=== PATIENT | female | born 1945 | race Caucasian/White ===

== ENCOUNTER 2017-11-07 07:40 | Emergency (ER) | payer OTHER, MEDICAID ==
[~2017-11-07] VITALS: Ht 167.6 cm; Wt 59.0 kg
[~2017-11-07 07:40] MED LIST: DIVA250T PO; LAM25 PO; MESA1.2T PO; ONDA8TAB13 PO; PANT40EC PO; RANI150C PO; SUCR1TAB35 PO; VENL150C1 PO; ZONI100C5 PO; [UNRECOGNIZED DRUG - CODE] PO; [UNRECOGNIZED DRUG - CODE] PO; [UNRECOGNIZED DRUG - CODE] PO
--- NOTE | 2017-11-07 07:41 | NUR ---
Patient BIBA to bed 2.
[2017-11-07 07:49] VITALS: BP 165/73
--- NOTE | 2017-11-07 08:00 | NUR ---
PATIENT BIBA C/O EPIGASTRIC PAIN, NAUEA AND WEAKNESS x 24 HOURS.MEDS: KEPPRA, EFFEXOR, HX: DEPRESSION AND SEIZURE . AAOX4 WITH EVEN AND STEADY GAIT; LUNGS CLEAR BL; HR EVEN AND REGULAR; PT DENIES ANY FEVER, CP, SOB, OR COUGH AT THIS TIME; SKIN IS PINK/WARM/DRY;PATIENT STATES PAIN OF 8/10 AT THIS TIME; VSS; PATIENT POSITIONED FOR COMFORT; HOB ELEVATED; BEDRAILS UP X2; BED DOWN. ER MD MADE AWARE OF PT STATUS.
[2017-11-07] MEDS ORDERED: ONDANSETRON 4 MG/2 ML VIAL IVP ONE ×2 (08:10→09:20)
[2017-11-07] MEDS ORDERED: MORPHINE SULFATE 4 MG/ML SYR IVP ONE (08:10)
[2017-11-07] MEDS ORDERED: NACL 0.9% 1,000 ML IV ONE (08:10)
[2017-11-07 08:28] LABS: BASOPHILS # (AUTO) 0.2 K/uL (0.00-0.22); BASOPHILS % (AUTO) 2.8 % (0.0-2.0); EOSINOPHILS # (AUTO) 0.1 K/uL (0-0.4); LYMPHOCYTES # (AUTO) 1.1 K/uL (2.5-16.5); LYMPHOCYTES % (AUTO) 13.9 % (20.5-51.1); MEAN CORPUSCULAR HEMOGLOBIN 28 pg (27-31); MEAN CORPUSCULAR HGB CONC 33 g/dL (33-37); MONOCYTES # (AUTO) 0.5 K/uL (0.8-1.0); MONOCYTES % (AUTO) 6.4 % (1.7-9.3); NEUTROPHILS % (AUTO) 75.9 % (42.2-75.2); PLATELET COUNT (AUTO) 365 K/uL (140-450); RED BLOOD CELL COUNT(AUTO) 5.01 MIL/uL (4.20-5.40); RED CELL DISTRIBUTION WIDTH 13.4 % (11.6-13.7); WHITE BLOOD COUNT (AUTO) 7.9 K/uL (4.8-10.8)
[2017-11-07 08:48] LABS: ALBUMIN 3.7 g/dL (3.4-5.0); CARBON DIOXIDE 24.5 mmol/L (21-32); CREATININE 0.9 mg/dL (0.6-1.3); POTASSIUM 3.5 mmol/L (3.5-5.1); TOTAL BILIRUBIN 0.5 mg/dL (0.0-1.0)
[2017-11-07] MEDS ORDERED: ALUMINUM HYD/MAG/SIMETHICONE 30 ML UDC PO ONE (09:20)
[2017-11-07] MEDS ORDERED: DICYCLOMINE HCL LIQUID 10 MG/5 ML UDC PO ONE (09:20)
[2017-11-07] MEDS ORDERED: LIDOCAINE VISCOUS 2% 20 ML UDC PO ONE (09:20)
--- NOTE | 2017-11-07 10:00 | NUR ---
PT IS RESTING IN BED, NO S/S OF DISTRESS, VSS. STILL C/O NAUSEA, AND ABDOMINAL PAIN. MADE AWARE..
[2017-11-07] MEDS ORDERED: MAGNESIUM CITRATE 300 ML BTL PO ONE (10:10)
[2017-11-07 10:38] LABS: APPEARANCE,URINE CLEAR (CLEAR); BILIRUBIN,URINE NEGATIVE (NEGATIVE); BLOOD, URINE TRACE-L (NEGATIVE); COLOR,URINE YELLOW (YELLOW); LEUKOCYTE ESTERASE ,URINE NEGATIVE (NEGATIVE); NITRITE, URINE NEGATIVE (NEGATIVE); PH,URINE 5.5 (5.0-9.0); UGLUCOSE NEGATIVE (NEGATIVE)
[2017-11-07 11:11] LABS: RBC,URINE 0-5 (RARE) /HPF (0-5); WBC,URINE 0-5 (RARE) /HPF (0-5)
[2017-11-07 11:34] VITALS: BP 153/84
--- NOTE | 2017-11-07 11:34 | NUR ---
Patient discharged with v/s stable. Written and verbal after care instructions given and explained. Patient alert, oriented and verbalized understanding of instructions. Ambulatory with steady gait. All questions addressed prior to discharge. ID band removed. Patient advised to follow up with PMD. Rx of ALPRAZOLAM, MIRALAX, ZANTAC given. Patient educated on indication of medication including possible reaction and side effects. Opportunity to ask questions provided and answered.
== END 2017-11-07 11:34 | disposition home or self-care (01) ==
LOC: MED 07:40
DX: K29.70 Gastritis, unspecified, without bleeding (principal); K59.00 Constipation, unspecified; F41.9 Anxiety disorder, unspecified; R94.31 Abnormal electrocardiogram [ECG] [EKG]; Z79.899 Other long term (current) drug therapy; Z90.710 Acquired absence of both cervix and uterus; Z88.0 Allergy status to penicillin
CPT/HCPCS: 36415; 74176; 80053; 81001; 81025; 82150; 83605; 83690; 84484; 84703; 85025; 85610; 87040; 93005; 96361; 96374; 96375; 96376; 99285; J2270; J2405; J7030

== ENCOUNTER 2017-12-19 07:49 | Inpatient (IN) | payer OTHER, MEDICAID ==
[~2017-12-19] VITALS: Ht 172.7 cm; Wt 70.3 kg
[2017-12-19 07:49] VITALS: BP 124/75
--- NOTE | 2017-12-19 07:53 | NUR ---
PT BIBA ALS FOR MECH FALL TO BED 4
[2017-12-19] MEDS ORDERED: NACL 0.9% 1,000 ML IV ONE ×2 (08:15→09:25)
--- NOTE | 2017-12-19 08:15 | NUR ---
PT. BIB FROM HOME VIA EMS DUE TO FALL AT HOME DUE TO WEAKNESS. PER EMS, "PT. WAS LYING ON THE GROUND FOR AN UNKNOWN AMOUNT OF TIME". SISTER WAS PRESENT AND TOLD PARAMEDICS " I THINK SHE HAS TAKEN TOO MANY XANAX". PT. IS AROUSABLE TO MOVEMENT AND VOICE, PT. IS LETHARGIC, SKIN DRY AND WARM. PT. HAS REDNESS TO BOTH OF HER KNEES AND BOTH OF HER ELBOWS, PT. DOES NOT HAVE ANY ABRASIONS OR DISCOLORATION NOTED TO HER HEAD . PT. IS ALERT AND ORIENTED TO HER NAME,RR EVEN AND UNLABORED. Yessy SPEAR NOTIFIED. WILL CONTINUE TO MONITOR.
--- NOTE | 2017-12-19 08:32 | NUR ---
PT TAKEN TO CT
[2017-12-19 08:47] LABS: BASOPHILS # (AUTO) 0.4 K/uL (0.00-0.22); EOSINOPHILS # (AUTO) 0.1 K/uL (0-0.4); EOSINOPHILS % (AUTO) 1.1 % (0.0-4.0); HEMATOCRIT 51.4 % (36-48); HEMOGLOBIN 17.1 g/dL (12.0-16.0); LYMPHOCYTES # (AUTO) 2.9 K/uL (2.5-16.5); LYMPHOCYTES % (AUTO) 21.4 % (20.5-51.1); MEAN CORPUSCULAR HEMOGLOBIN 29 pg (27-31); MEAN CORPUSCULAR HGB CONC 33 g/dL (33-37); MEAN CORPUSCULAR VOLUME 87.4 fL (80-94); MONOCYTES % (AUTO) 7.5 % (1.7-9.3); NEUTROPHILS # (AUTO) 9.1 K/uL (1.8-7.7); PLATELET COUNT (AUTO) 343 K/uL (140-450); RED BLOOD CELL COUNT(AUTO) 5.89 MIL/uL (4.20-5.40); RED CELL DISTRIBUTION WIDTH 13.3 % (11.6-13.7); WHITE BLOOD COUNT (AUTO) 13.5 K/uL (4.8-10.8)
[2017-12-19 08:49] LABS: ANION GAP 17.9 (8-16); CARBON DIOXIDE 23.9 mmol/L (21-32); CHLORIDE 108 mmol/L (98-107); GLUCOSE 89 mg/dL (74-106); POTASSIUM 3.8 mmol/L (3.5-5.1); SODIUM SERUM 146 mmol/L (136-145); UREA NITROGEN, BLOOD 24 mg/dL (7-18)
[2017-12-19 08:58] LABS: ACETAMINOPHEN < 0.5 ug/ml (10-30); ALBUMIN 4.2 g/dL (3.4-5.0); ASPARTATE AMINOTRANSFERASE 79 U/L (15-37); SALICYLATE < 2.8 mg/dL (2.8-20.0); TOTAL BILIRUBIN 0.8 mg/dL (0.0-1.0)
[2017-12-19 09:14] LABS: BILIRUBIN,URINE 2+ (NEGATIVE); BLOOD, URINE 2+ (NEGATIVE); COLOR,URINE YELLOW (YELLOW); LEUKOCYTE ESTERASE ,URINE NEGATIVE (NEGATIVE); NITRITE, URINE NEGATIVE (NEGATIVE); UGLUCOSE NEGATIVE (NEGATIVE)
[2017-12-19 09:20] LABS: BARBITURATE, URINE NEG. ng/ml (NEG <=200); BENZODIAZEPINE, URINE POS. ng/mL (NEG <=200); CANNABINOID, URINE NEG. ng/mL (NEG <=50); COCAINE, URINE NEG. ng/mL (NEG <=300); OPIATE, URINE NEG. ng/mL (NEG <=2000); PHENCYCLIDINE SCREEN,URINE NEG. ng/mL (NEG <=25)
[2017-12-19 09:24] LABS: CREATINE KINASE MB 27.5 ng/mL (0-3.6)
--- NOTE | 2017-12-19 09:27 | NUR ---
CRITICAL LAB RESULTS RECEIVED FROM [facility]. DR. KILGORE NOTIFIED. CPK: 3007, CKMB: 27.5.
[2017-12-19 09:29] LABS: CKMB RELATIVE INDEX 0.8 (0.0-2.5)
--- NOTE | 2017-12-19 09:39 | NUR ---
PT. RESTING IN BED COMFORTABLY, RR EVEN AND UNLABORED, NO S/S OF DISTRESS AT THIS TIME, BED IN LOWEST POSITION, RAILS X2 ARE UP. WILL CONTINUE TO MONITOR.
[2017-12-19] MEDS ORDERED: ONDANSETRON 4 MG/2 ML VIAL IVP PRN (09:50)
[2017-12-19] MEDS: NACL 0.9% 1,000 ML IV SCH ×2 (09:50→17:29)
[2017-12-19] MEDS ORDERED: ACETAMINOPHEN 325 MG TAB PO PRN (09:50)
[2017-12-19 09:54] LABS: APPEARANCE,URINE TURBID (CLEAR)
[2017-12-19 09:56] LABS: RBC,URINE 0-5 (RARE) /HPF (0-5); WBC,URINE 0-5 (RARE) /HPF (0-5)
[2017-12-19] MEDS ORDERED: MECLIZINE 25 MG TAB PO PRN (10:40)
--- NOTE | 2017-12-19 10:40 | NUR ---
RECEIVED PT VIA ZACH THROUGH ER NURSE. PT IS ASLEEP AND WITH AN IV LINE ON THE RIGHT HAND G. 22 WITH NS RUNNING AT 200 ML/HR, INTACT. VITAL SIGNS TAKEN, BP 116/69, O2 SAT AT 100, PULSE AT 65, RESPIRATION AT 18 AND TEMPERATURE AT 96.8. PT RESPONDS AND OPEN HER EYES A BIT WHEN BEING CALLED BUT IS NOT FULLY AWAKE AND GOES BACK TO SLEEP.
--- NOTE | 2017-12-19 10:40 | NUR ---
Patient will be admitted to care of DR. CONKLIN . Admited to TELE FLOOR . Will go to room 121A. Belongings list completed. Report to MADELINE FERNANDEZ .
--- NOTE | 2017-12-19 10:55 | NUR ---
PT IS HALF AWAKE AND GOWN WAS CHANGED AND ARM BANDS WERE PLACED. O2 SAT IS AT 99%. NO SIGN OF DISTRESS NOTED. WILL MONITOR.
--- NOTE | 2017-12-19 11:00 | NUR ---
PT IS ASLEEP WITH O2 SAT AT 98%, TRIED TO AWAKEN AND SHE RESPONDED BUT NOT FULLY AWAKE AND ALERT. ASSESSMENT DONE ON SKIN AND NOTED BRUISE ON LEFT AND RIGHT ELBOW WELL THE RIGHT AND LEFT KNEE, ABRASION NOTED ON THE RIGHT ACHILLES TENDON AND SAW A MARTINE OF SURGERY DONE ON THE LEFT KNEE.NO SIGN OF DISTRESS NOTED AND CALL LIGHT WITHIN REACH. WILL CONTINUE TO MONITOR.
[2017-12-19 11:05] LABS: CHOL/HDL RATIO 3.4 (1-4.5); FREE T4 (FREE THYROXINE) 1.25 ng/dL (0.76-1.46); PHOSPHORUS 3.8 mg/dL (2.5-4.9); THYROID STIMULATING HORMONE 0.94 uIU/mL (0.34-3.74)
--- NOTE | 2017-12-19 11:45 | NUR ---
ULTRASOUND OF THE CAROTID ARTERY IS BEING DONE TO THE PT BY THE RAD TECHNICIANS. PT IS ASLEEP AND NO SIGN OF DISTRESS NOTED. WILL MONITOR.
[2017-12-19] MEDS ORDERED: LEVE500T9 PO (11:49)
--- NOTE | 2017-12-19 11:56 | NUR ---
PT NOTE 1150 RECEIVED ORDER FOR PT EVAL, CHART REVIEWED. PER RN, Pt IS VERY LETHARGIC; HOLD PT EVAL FOR TODAY DUE TO POOR ALERTNESS; WILL FOLLOW UP W/Pt TOMORROW; RN NOTIFIED.
[2017-12-19 12:14] LABS: PROTHROMBIN TIME 10.8 secs (10.8-13.4)
[2017-12-19] MEDS ORDERED: ALPR2TAB1 PO (12:35)
[2017-12-19] MEDS ORDERED: VENL150C1 PO (12:35)
[2017-12-19] MEDS ORDERED: ZOLP10TA1 PO (12:35)
[2017-12-19] MEDS ORDERED: VENLAFAXINE XR 75 MG CAPER PO SCH ×2 (13:00→21:00)
--- NOTE | 2017-12-19 13:00 | NUR ---
PT IS ASLEEP AND VITAL SIGNS TAKEN AND O2 SAT IS 99%. NO SIGN OF DISTRESS NOTED. WILL MONITOR.
--- NOTE | 2017-12-19 17:40 | NUR ---
INFORMED THE RESIDENT DOCTOR THAT PT WANTS TO EAT AND RESIDENT ASKED ME TO GIVE JELLO, PT TOLERATED IT . NO SIGN OF DISTRESS NOTED. WILL MONITOR.
--- NOTE | 2017-12-19 19:20 | NUR ---
ENDORSED PT TO MANAGER PERSONAL NURSE EJ, PT IS AWAKE AND IN STABLE CONDITON.
--- NOTE | 2017-12-19 19:21 | NUR ---
RECEIVED PT FROM DAY SHIFT NURSE REBECCA-MADELINE. PT RESTING IN BED. AOX3, ON ROOM AIR, IV RIGHT WRIST #22G NS 0.9% RUNNING AT 150ML/HR. RIGHT LATERAL ACHILLES HEEL OPEN WOUND AND BRUISING ON RIGHT ELBOW-PICTURE IN CHART. DISCUSSED PLAN OF CARE, PT VERBALIZED UNDERSTANDING. WHITE BOARD UPDATED. BED IN LOWEST POSITION, BED BREAKS LOCKED. BED PADDING IN PLACE FOR SEIZURE PRECAUTIONS. BED SIDE TABLE AND CALL LIGHT WITHIN REACH. NO S/S OF RESPIRATORY DISTRESS OR DISCOMFORT NOTED AT THIS TIME. WILL CONTINUE TO MONITOR.
[2017-12-19 20:00] VITALS: BP 134/71
[2017-12-19] MEDS: DOCUSATE SODIUM 100 MG GELCAP PO SCH (20:33)
[2017-12-19] MEDS: levETIRAcetam 500 MG TAB PO SCH (20:33)
--- NOTE | 2017-12-19 20:33 | NUR ---
SCHEDULED MEDICATION GIVEN AND TOLERATED WELL. WILL CONTINUE TO MONITOR.
[2017-12-19] MEDS ORDERED: PALIPERIDONE 9 MG PO SCH (21:00)
[2017-12-19] MEDS ORDERED: lamoTRIgine 25 MG TAB PO SCH (21:00)
[2017-12-19] MEDS ORDERED: NON-FORMULARY ITEM (Levetiracetam* (Keppra Xr*) 500 MG) PO SCH (21:00)
--- NOTE | 2017-12-19 21:30 | NUR ---
PROVIDED PT WITH TUNA SANDWICH AND SHE ATE IT. ROSE UPTON ASSISTED ME IN PULLING PT UP IN BED TO BE MORE COMFORTABLE. NO S/S OF RESPIRATORY DISTRESS OR DISCOMFORT NOTED AT THIS TIME. WILL CONTINUE TO MONITOR.
[2017-12-19] MEDS ORDERED: ONDANSETRON 4 MG TAB PO PRN (22:00)
--- NOTE | 2017-12-19 22:30 | NUR ---
PT SLEEPING AT THIS TIME. WILL CONTINUE TO MONITOR.
[2017-12-19] MEDS ORDERED: ZOLPIDEM 10 MG TAB PO SCH (22:38)
--- NOTE | 2017-12-19 23:48 | NUR ---
PT CONTINUES TO SLEEP. WILL CONTINUE TO MONITOR.
[2017-12-20] VITALS: BP 104/58
--- NOTE | 2017-12-20 | NUR ---
VITAL SIGNS TAKEN. PT CONTINUES TO SLEEP. WILL CONTINUE TO MONITOR.
[2017-12-20] MEDS: NACL 0.9% 1,000 ML IV SCH ×4 (01:30→20:09)
--- NOTE | 2017-12-20 02:25 | NUR ---
PT CONTINUES TO SLEEP. WILL CONTINUE TO MONITOR.
[2017-12-20 04:00] VITALS: BP 98/54
--- NOTE | 2017-12-20 04:00 | NUR ---
VITAL SIGNS TAKEN AND TOLERATED WELL. PT RESTING IN BED AND CONTINUED TO SLEEP. WILL CONTINUE TO MONITOR.
--- NOTE | 2017-12-20 06:00 | NUR ---
SCHEDULED MEDICATION GIVEN AND TOLERATED WELL. WILL CONTINUE TO MONITOR.
[2017-12-20] MEDS: PANTOPRAZOLE 40 MG TABEC PO SCH (06:18)
[2017-12-20 06:27] LABS: BASOPHILS # (AUTO) 0.1 K/uL (0.00-0.22); BASOPHILS % (AUTO) 0.7 % (0.0-2.0); EOSINOPHILS # (AUTO) 0.3 K/uL (0-0.4); HEMATOCRIT 37.4 % (36-48); HEMOGLOBIN 12.4 g/dL (12.0-16.0); LYMPHOCYTES # (AUTO) 2.2 K/uL (2.5-16.5); LYMPHOCYTES % (AUTO) 28.8 % (20.5-51.1); MEAN CORPUSCULAR HEMOGLOBIN 29 pg (27-31); MEAN CORPUSCULAR HGB CONC 33 g/dL (33-37); MEAN CORPUSCULAR VOLUME 87.2 fL (80-94); MONOCYTES # (AUTO) 0.8 K/uL (0.8-1.0); MONOCYTES % (AUTO) 10.1 % (1.7-9.3); NEUTROPHILS # (AUTO) 4.4 K/uL (1.8-7.7); NEUTROPHILS % (AUTO) 56.4 % (42.2-75.2); PLATELET COUNT (AUTO) 284 K/uL (140-450); RED BLOOD CELL COUNT(AUTO) 4.29 MIL/uL (4.20-5.40); RED CELL DISTRIBUTION WIDTH 14.7 % (11.6-13.7); WHITE BLOOD COUNT (AUTO) 7.8 K/uL (4.8-10.8)
[2017-12-20] MEDS ORDERED: PANTOPRAZOLE 40 MG TABEC PO SCH (06:30)
[2017-12-20 06:59] LABS: ANION GAP 12.7 (8-16); CARBON DIOXIDE 22.9 mmol/L (21-32); CHLORIDE 117 mmol/L (98-107); CREATININE 0.9 mg/dL (0.6-1.3); GLUCOSE 92 mg/dL (74-106); POTASSIUM 3.6 mmol/L (3.5-5.1); SODIUM SERUM 149 mmol/L (136-145); UREA NITROGEN, BLOOD 20 mg/dL (7-18)
[2017-12-20 07:09] LABS: MAGNESIUM 1.9 mg/dL (1.8-2.4)
--- NOTE | 2017-12-20 07:15 | NUR ---
ENDORSED PT CARE TO DAY SHIFT NURSE COREY FOR CONTINUITY OF CARE. PT STABLE AT THIS TIME.
--- NOTE | 2017-12-20 07:16 | NUR ---
RECEIVED REPORT FROM SHEEP RANCHER RN. PATIENT IS AAOX3, HAS NO SIGNS AND SYMPTOMS OF ACUTE DISTRESS NOTED AT THIS TIME. HAS IV TO THE RIGHT WRIST 22G, NS INFUSING AT 150 ML/HR. SITE IS CLEAN, DRY, PATENT AND INTACT. SHE HAS A ARITA CATHETER THAT IS DRAINING TO GRAVITY. SEIZURE PRECAUTIONS ARE IN PLACE. DISCUSSED PLAN OF CARE WITH PATIENT AND SHE VERBALIZED UNDERSTANDING WITH SOME REINFORCEMENT. FALL PRECAUTIONS ARE IN PLACE. BED IN LOWEST POSITION, SIDE RAILS UP X3, CALL LIGHT WITHIN REACH. WILL CONTINUE TO MONITOR.
[2017-12-20 08:00] VITALS: BP 124/74
[2017-12-20] MEDS: POTASSIUM CHLORIDE 10 MEQ TABER PO SCH (09:00)
[2017-12-20] MEDS ORDERED: VENLAFAXINE XR 75 MG CAPER PO SCH (09:00)
[2017-12-20] MEDS ORDERED: ALPRAZolam 0.5 MG TAB PO SCH (09:00)
[2017-12-20] MEDS ORDERED: ZONISAMIDE 100 MG PO SCH (09:00)
[2017-12-20] MEDS ORDERED: MESALAMINE 1.2 GM PO SCH (09:00)
[2017-12-20] MEDS ORDERED: [UNRECOGNIZED DRUG - OTHER] PO SCH (09:00)
[2017-12-20] MEDS ORDERED: FAMOTIDINE 20 MG TAB PO SCH (09:00)
--- NOTE | 2017-12-20 09:24 | NUR ---
PATIENT HAS BEEN SCREENED AND CATEGORIZED MODERATE NUTRITION RISK. PATIENT WILL BE SEEN WITHIN 3-5 DAYS OF ADMISSION. 12/22/17-12/24/[address]
[2017-12-20] MEDS: DOCUSATE SODIUM 100 MG GELCAP PO SCH ×2 (09:58→20:34)
[2017-12-20] MEDS: levETIRAcetam 500 MG TAB PO SCH ×2 (09:58→20:37)
[2017-12-20] MEDS: VENLAFAXINE XR 75 MG CAPER PO SCH (09:58)
[2017-12-20] MEDS: DIVALPROEX 250 MG TABEC PO SCH ×2 (09:58→20:35)
[2017-12-20] MEDS: SUCRALFATE 1 GM TAB PO SCH ×4 (09:58→20:37)
--- NOTE | 2017-12-20 09:59 | NUR ---
ADMINISTERED MORNING MEDICATIONS WITH STUDENT RN. SCANNED MEDS COMPUTER TIMED OUT AND WAS UNABLE TO SAVE MEDS AFTERWARDS.
[2017-12-20] MEDS ORDERED: clonazePAM 0.5 MG TAB PO SCH (11:05)
[2017-12-20 12:00] VITALS: BP 116/98
[2017-12-20] MEDS: clonazePAM 0.5 MG TAB PO SCH ×2 (13:00→20:36)
--- NOTE | 2017-12-20 13:05 | NUR ---
PATIENT STATED SHE DIDN'T WANT TO TAKE ANY MEDICATIONS BECAUSE SHE WAS GOING HOME. INFORMED HER THAT SHE IS NOT GOING HOME YET. GOT AGITATED AND STILL REFUSED MEDICATIONS.
[2017-12-20 16:00] VITALS: BP 146/77
--- NOTE | 2017-12-20 19:21 | NUR ---
RECEIVED PATIENT AWAKE IN BED. FALL PRECAUTION IMPLEMENTED. CALL LIGHT WITHIN REACH. WILL CONTINUE TO MONITOR.
--- NOTE | 2017-12-20 19:21 | NUR ---
ENDORSED PATIENT TO CARE PROFESSIONALS RN FOR CONTINUITY OF CARE. PATIENT IN STABLE CONDITION.
[2017-12-20] MEDS ORDERED: ZOLPIDEM 10 MG TAB PO SCH ×2 (21:00)
[2017-12-21] VITALS: BP 138/76
[2017-12-21] MEDS: NACL 0.9% 1,000 ML IV SCH ×2 (03:27→09:13)
[2017-12-21] MEDS ORDERED: traZODone 50 MG TAB PO SCH ×3 (04:04→21:00)
[2017-12-21] MEDS: clonazePAM 0.5 MG TAB PO SCH (05:00)
[2017-12-21] MEDS: PANTOPRAZOLE 40 MG TABEC PO SCH (06:56)
--- NOTE | 2017-12-21 07:31 | NUR ---
ENDORSEMENT GIVEN TO AM SHIFT NURSE FOR CONTINUITY OF CARE. PATIENT IN STABLE CONDITION.
--- NOTE | 2017-12-21 07:32 | NUR ---
RECEIVED REPORT FROM PM NURSE AT BEDSIDE FOR CONTINUITY OF CARE. PT SITTING ON BEDSIDE. PT AOX3.PT STABLE AT THIS TIME. PT INFORMED ABOUT HER DISCHARGE PLAN.WAITING FOR DOC ORDER.PT EDUCATED ON FALL RISK. PT VERBALIZED UNDERSTANDING. ALL SAFETY IN PLACE. WILL CONTINUE TO MONITOR PT.
--- NOTE | 2017-12-21 07:50 | NUR ---
PER MD PT WILL BE DISCHARGED TODAY. CALLED SISTER DILIA AND NOTIFIED HER OF THE DISCHARGE. SHE WILL BE HERE [id number]. ASKED HER TO BRING SOME CLOTHES FOR THE PT. NOTIFIED MD. HE WILL START ON DC THIS MORNING. PT IS SITTING UP AND EATING BREAKFAST. ONCE ORDER IS IN, WILL GO AHEAD AND START D/C.
[2017-12-21 07:56] LABS: BASOPHILS # (AUTO) 0.1 K/uL (0.00-0.22); BASOPHILS % (AUTO) 0.7 % (0.0-2.0); EOSINOPHILS # (AUTO) 0.2 K/uL (0-0.4); EOSINOPHILS % (AUTO) 3.2 % (0.0-4.0); HEMATOCRIT 34.6 % (36-48); HEMOGLOBIN 11.4 g/dL (12.0-16.0); LYMPHOCYTES % (AUTO) 26.9 % (20.5-51.1); MEAN CORPUSCULAR HEMOGLOBIN 29 pg (27-31); MEAN CORPUSCULAR HGB CONC 33 g/dL (33-37); MEAN CORPUSCULAR VOLUME 87.4 fL (80-94); MONOCYTES # (AUTO) 0.6 K/uL (0.8-1.0); MONOCYTES % (AUTO) 7.9 % (1.7-9.3); NEUTROPHILS # (AUTO) 4.7 K/uL (1.8-7.7); NEUTROPHILS % (AUTO) 61.3 % (42.2-75.2); PLATELET COUNT (AUTO) 268 K/uL (140-450); RED BLOOD CELL COUNT(AUTO) 3.96 MIL/uL (4.20-5.40); RED CELL DISTRIBUTION WIDTH 14.5 % (11.6-13.7); WHITE BLOOD COUNT (AUTO) 7.6 K/uL (4.8-10.8)
[2017-12-21 08:00] VITALS: BP 143/68
[2017-12-21 08:04] LABS: ANION GAP 10.3 (8-16); CARBON DIOXIDE 25.2 mmol/L (21-32); CHLORIDE 114 mmol/L (98-107); CREATININE 0.7 mg/dL (0.6-1.3); GLUCOSE 93 mg/dL (74-106); POTASSIUM 3.5 mmol/L (3.5-5.1); SODIUM SERUM 146 mmol/L (136-145); UREA NITROGEN, BLOOD 9 mg/dL (7-18)
[2017-12-21] MEDS: SUCRALFATE 1 GM TAB PO SCH (09:11)
[2017-12-21] MEDS: VENLAFAXINE XR 75 MG CAPER PO SCH (09:11)
[2017-12-21] MEDS: POTASSIUM CHLORIDE 10 MEQ TABER PO SCH (09:12)
[2017-12-21] MEDS: levETIRAcetam 500 MG TAB PO SCH (09:12)
[2017-12-21] MEDS: DOCUSATE SODIUM 100 MG GELCAP PO SCH (09:13)
[2017-12-21] MEDS: DIVALPROEX 250 MG TABEC PO SCH (09:13)
--- NOTE | 2017-12-21 09:15 | NUR ---
ADMINISTERED MORNING MEDS TO PT. NORMAL VS. PT HAS NO SIGNS OF DISTRESS. PT TOLERATED MEDS ADMINISTRATION WELL. PT INFORMED ABOUT HER DISCHARGE PAPER WORK BEING INITIATED. BREAKFAST TRAY AT BEDSIDE TABLE. PT ATE 30% OF HER BREAKFAST. PT EDUCATED ON FALL RISK. PT SITTING UP ON BED.PT STABLE. WILL CONTINUE TO MONITOR.
[2017-12-21] MEDS ORDERED: LIB5 PO (09:23)
--- NOTE | 2017-12-21 10:10 | NUR ---
DISCHARGE INSTRUCTIONS GIVEN. PT VERBALIZED UNDERSTANDING. REMOVED IV, CANNULA INTACT. NO BLEEDING NOTED. REMOVED ID BANDS. NO SISTER OF YET. SHE IS TO BRING CLOTHES. WILL AWAIT THE SISTER. VERY LIMITED PERSONAL BELONGINGS. WILL ASSIST IN GATHERING IT. WILL CONTINUE TO MONITOR PT.
--- NOTE | 2017-12-21 10:40 | NUR ---
PT STILL WAITING. CALLED SISTER, SHE STILL HASN'T LEFT THE HOUSE YET. WILL CONTINUE TO MONITOR PT.
[2017-12-21 10:52] LABS: CKMB RELATIVE INDEX 0.5 (0.0-2.5); CREATINE KINASE MB 3.6 ng/mL (0-3.6)
--- NOTE | 2017-12-21 11:05 | NUR ---
WHEELCHAIR PT OUT TO THE LOBBY BY RN STUDENT. ACCOMPANIED BY HER SISTER. PT HAS HER PERSONAL BELONGING WITH HER. PT IN STABLE CONDITION.
--- NOTE | 2017-12-22 10:32 | NUR ---
RETRO [place] ER RE[place], H&P, CONS[place] AND [place]IC [place] [facility] [phone] PHONE [phone] NO DISCHARGE SUMMARY.
== END 2017-12-21 11:05 | disposition home or self-care (01) | DRG 917 ==
LOC: MED 07:49 → MTU 09:58
PROVIDERS: ADMIT Family Medicine Sports Medicine; ATTEND Family Medicine Sports Medicine
DX: T42.4X1A Poisoning by benzodiazepines, accidental (unintentional), initial encounter (principal); N17.0 Acute kidney failure with tubular necrosis; G92 Toxic encephalopathy; M62.82 Rhabdomyolysis; G40.909 Epilepsy, unspecified, not intractable, without status epilepticus; K21.9 Gastro-esophageal reflux disease without esophagitis; F25.0 Schizoaffective disorder, bipolar type; F41.0 Panic disorder [episodic paroxysmal anxiety]; Z91.19 Patient's noncompliance with other medical treatment and regimen; F32.9 Major depressive disorder, single episode, unspecified; Z88.0 Allergy status to penicillin; F41.1 Generalized anxiety disorder; E86.0 Dehydration; D72.829 Elevated white blood cell count, unspecified; Y92.89 Other specified places as the place of occurrence of the external cause
CPT/HCPCS: 36415; 36600; 51702; 70450; 71045; 80048; 80053; 80305; 81001; 82140; 82150; 82550; 82553; 82803; 83036; 83690; 83735; 83880; 84100; 84439; 84443; 84484; 85025; 85610; 85730; 87081; 93005; 93880; 96360; 96361; 97110; 97140; 99285; G0480; G0482; J7030; Q0092

== ENCOUNTER 2018-01-25 13:28 | Inpatient (IN) | payer MEDICARE, MEDICAID ==
[~2018-01-25] VITALS: Ht 167.6 cm; Wt 62.6 kg
[~2018-01-25 13:28] MED LIST changes: +LEVE500T9 PO; +LIB5 PO; +ZOLP10TA1 PO
--- NOTE | 2018-01-25 13:28 | NUR ---
PT DARIO BLS TO ER BED 05
[2018-01-25 13:35] VITALS: BP 127/95
[2018-01-25 14:34] LABS: BASOPHILS # (AUTO) 0.1 K/uL (0.00-0.22); BASOPHILS % (AUTO) 1.4 % (0.0-2.0); EOSINOPHILS % (AUTO) 0.4 % (0.0-4.0); HEMATOCRIT 41.6 % (36-48); HEMOGLOBIN 13.8 g/dL (12.0-16.0); LYMPHOCYTES # (AUTO) 1.6 K/uL (2.5-16.5); LYMPHOCYTES % (AUTO) 15.2 % (20.5-51.1); MEAN CORPUSCULAR HEMOGLOBIN 28 pg (27-31); MEAN CORPUSCULAR HGB CONC 33 g/dL (33-37); MEAN CORPUSCULAR VOLUME 85.4 fL (80-94); MONOCYTES # (AUTO) 0.7 K/uL (0.8-1.0); MONOCYTES % (AUTO) 6.5 % (1.7-9.3); NEUTROPHILS # (AUTO) 7.9 K/uL (1.8-7.7); NEUTROPHILS % (AUTO) 76.5 % (42.2-75.2); PLATELET COUNT (AUTO) 404 K/uL (140-450); RED BLOOD CELL COUNT(AUTO) 4.87 MIL/uL (4.20-5.40); RED CELL DISTRIBUTION WIDTH 13.8 % (11.6-13.7); WHITE BLOOD COUNT (AUTO) 10.3 K/uL (4.8-10.8)
[2018-01-25 14:43] LABS: ANION GAP 11.3 (8-16); CARBON DIOXIDE 29.7 mmol/L (21-32); CHLORIDE 103 mmol/L (98-107); GLUCOSE 109 mg/dL (74-106); SODIUM SERUM 140 mmol/L (136-145); UREA NITROGEN, BLOOD 22 mg/dL (7-18)
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
[2018-01-25 14:50] LABS: ASPARTATE AMINOTRANSFERASE 10 U/L (15-37); TOTAL BILIRUBIN 0.7 mg/dL (0.0-1.0)
[2018-01-25 14:54] LABS: ACETAMINOPHEN < 0.5 ug/ml (10-30); SALICYLATE < 2.8 mg/dL (2.8-20.0)
--- NOTE | 2018-01-25 15:56 | NUR ---
FAMILY AT BEDSIDE, PT IN NAD. RESP EVEN AND UNLABORED. CALM, COOPERATIVE, FOLLWIG SIMPLE DIRECTIONS.
[2018-01-25 15:57] LABS: BARBITURATE, URINE NEG. ng/ml (NEG <=200); BENZODIAZEPINE, URINE NEG. ng/mL (NEG <=200); CANNABINOID, URINE NEG. ng/mL (NEG <=50); COCAINE, URINE NEG. ng/mL (NEG <=300); OPIATE, URINE NEG. ng/mL (NEG <=2000); PHENCYCLIDINE SCREEN,URINE NEG. ng/mL (NEG <=25)
--- NOTE | 2018-01-25 16:00 | NUR ---
PATIENT WAS ABLE TO EAT ABOUT 50 PERCENT OF HER MEAL. SHE WAS CALM AND COOPERATIVE.
--- NOTE | 2018-01-25 16:10 | NUR ---
NASEEM USED THE COMODE. PATIENT WAS COOPERATIVE AND SMILING. SHE STATED HER FAMILY MEMBER WAS HERE TO VISIT.
--- NOTE | 2018-01-25 16:15 | NUR ---
PATIENT IS RESTING COMFORTABLY IN HER BED. DOES NOT SEEM WITHDRAWN AND IS CALM. COMFORT MEASURES WERE OFFERED. PATIENT ASKED FOR A BLANKET.
--- NOTE | 2018-01-25 16:16 | NUR ---
Jackelyn [email or web address] in [facility] - 01/25/18 at 1618 by [email or web address] I received a call from Salena, she is sending a referral for patient for assistance with placement. We are waiting on a copy of the hold to assist.
[2018-01-25 16:21] LABS: APPEARANCE,URINE CLOUDY (CLEAR); BILIRUBIN,URINE 2+ (NEGATIVE); BLOOD, URINE 1+ (NEGATIVE); COLOR,URINE YELLOW (YELLOW); LEUKOCYTE ESTERASE ,URINE NEGATIVE (NEGATIVE); NITRITE, URINE NEGATIVE (NEGATIVE); PH,URINE 5.5 (5.0-9.0); UGLUCOSE NEGATIVE (NEGATIVE)
--- NOTE | 2018-01-25 16:27 | NUR ---
CORRESPONDENCE RECEIVED, PACKET AND COPY OF HOLD.
[2018-01-25 16:29] LABS: WBC,URINE 0-5 (RARE) /HPF (0-5)
[2018-01-25 16:30] LABS: RBC,URINE 3-10 (FEW) /HPF (0-5); URINE AMORPHOUS URATE 3+ /HPF (None Seen)
--- NOTE | 2018-01-25 17:25 | NUR ---
PLACEMENT PACKETS HAVE BEEN SENT TO [facility], [facility], [facility], AND [facility]. ALL BEDS ARE CURRENTLY FULL BUT WILL HOLD PACKET FOR POSSIBLE BED. [facility], AND [facility] ARE NOT TAKING WAITLIST AT THIS TIME. WE WILL CONTINUE TO SEARCH FOR PLACEMENT.
--- NOTE | 2018-01-25 18:37 | NUR ---
PATIENT IS SITTING UP IN HER BED. SHE WAS GETTING A LITTLE ANXIOUS AND WANTED TO GET OUT OF BED. SHE WAS CALLING OUT TO HER SISTER AND ASKING ABOUT A DOG THEY HAVE. i LET HER KNOW THAT HER SISTER IS NOT HEAR AND SHE RESPONDED WITH A PLEASANT VOICE, OH OK. sHE SEEMS TO GO IN AND OUT OF CONFUSION. SHE STATED THAT HER SISTER WAS DOWN STAIRS WAITING FOR HER. SHE LISTENS AND FOLLOWS INSTRUCTIONS TO STAY IN BED.
--- NOTE | 2018-01-25 18:53 | NUR ---
PATIENT STATED THAT THE VOICES SHE HEARS ARE PEOPLE SINGING. SHE STATED THAT IT DOES NOT HAPPEN TOO OFTEN AND IT IS REALLY ODD THAT SHE HEARS IT WITH A CHUCKLE. SHE SEEMS TO BE COMFORTABLE WITH EXPRESSING HER FEELINGS TO ME. SHE SAID QUIETLY SO ONLY I CAN HEAR.
[2018-01-25] MEDS ORDERED: DOCUSATE SODIUM 100 MG GELCAP PO PRN (19:05)
[2018-01-25] MEDS ORDERED: ACETAMINOPHEN 325 MG TAB PO PRN (19:05)
[2018-01-25] MEDS ORDERED: HYDROcodone/APAP 7.5/325 MG 1 TAB PO PRN (19:05)
[2018-01-25] MEDS ORDERED: PROMETHAZINE 25 MG/ML VIAL IM PRN (19:05)
[2018-01-25] MEDS ORDERED: MORPHINE SULFATE 2 MG/ML SYR IVP PRN (19:05)
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
[2018-01-25 19:39] LABS: CHOL/HDL RATIO 4.2 (1-4.5); FREE T4 (FREE THYROXINE) 1.52 ng/dL (0.76-1.46); MAGNESIUM 1.9 mg/dL (1.8-2.4); PHOSPHORUS 3.5 mg/dL (2.5-4.9); THYROID STIMULATING HORMONE 1.21 uIU/mL (0.34-3.74)
[2018-01-25 20:00] VITALS: BP 146/78
[2018-01-25] MEDS ORDERED: ONDANSETRON HCL 4 MG PO SCH (20:35)
[2018-01-25] MEDS ORDERED: ZOLPIDEM 10 MG TAB PO SCH (21:00)
[2018-01-25] MEDS ORDERED: DIVALPROEX SODIUM 500 MG PO SCH (21:00)
[2018-01-25] MEDS ORDERED: NON-FORMULARY ITEM (Levetiracetam* (Keppra Xr*) 500 MG) PO SCH (21:00)
[2018-01-25] MEDS ORDERED: PALIPERIDONE 9 MG PO SCH (21:00)
[2018-01-25] MEDS ORDERED: NON-FORMULARY ITEM (Ranitidine HCl (Ranitidine Hcl) 150 MG) PO SCH (21:00)
[2018-01-25] MEDS ORDERED: ZONISAMIDE 100 MG PO SCH (21:00)
[2018-01-25] MEDS: NACL 0.9% 1,000 ML IV SCH (21:19)
[2018-01-25] MEDS: SUCRALFATE 1 GM TAB PO SCH (21:20)
[2018-01-25] MEDS: VENLAFAXINE XR 75 MG CAPER PO SCH (21:20)
--- NOTE | 2018-01-25 21:30 | NUR ---
PT REORIENTED NOT COMBATIVE AT THIS TIME, IV ON LEFT FA INFUSING WELL SITTER AT BED SIDE PT GETTING SLEEP
[2018-01-25] MEDS: lamoTRIgine 25 MG TAB PO SCH (22:30)
[2018-01-26] VITALS: BP 131/83
--- NOTE | 2018-01-26 | NUR ---
PT ON BED REST NOT AGITATION NOTED BUT PT CONFUSED SITTER AT BED SIDE ALL TIMES
--- NOTE | 2018-01-26 02:00 | NUR ---
PT ON CLOSE MONITORING 5150 HOLD SITTER AT BED SIDE NOT DISTRESS NOTED AT THIS TIME PT SLEEPING
--- NOTE | 2018-01-26 02:58 | NUR ---
Ther are no vacancy at any of the designated area at this time , will continue to call for placement thru the shift.
--- NOTE | 2018-01-26 03:30 | NUR ---
REPORT GIVEN TO TINA GARCIA FOR CONTINUING CARE
--- NOTE | 2018-01-26 03:31 | NUR ---
ASSUMED CARE OF PATIENT, RESTING IN BED AT THIS TIME BUT STILL AWAKE, UNABLE TO SLEEP. STILL CONFUSED OBEY REQUEST TO STAY IN BED WHENEVER TRYING TO GET OUT OF BED.
[2018-01-26 04:04] VITALS: BP 138/72
--- NOTE | 2018-01-26 04:17 | NUR ---
ASSISTED TO BR TO VOID, BACK TO BED AFTER VOIDING.
[2018-01-26] MEDS ORDERED: PANTOPRAZOLE 40 MG TABEC PO SCH (06:30)
--- NOTE | 2018-01-26 07:15 | NUR ---
CONDITION REMAIN STABLE. ENDORSED TO AM NURSE FOR CONTINUITY OF CARE.
--- NOTE | 2018-01-26 07:16 | NUR ---
RECEIVED BEDSIDE REPORT FROM CLIENT RELATIONSHIP CONSULTANT NURSE. PATIENT IS AWAKE, SHE IS ALERT AND ORIENTEDX2. SHE THINKS SHE IS AT THE [facility] AND SHE IS UNSURE OF TODAYS DATE. SHE HAS SOME ANXIETY BUT NO SIGNS OF DISTRESS ON ROOM AIR. IV ON L FA 22 G INFUSING NS AT 60. CLEAN,DRY AND INTACT. SKIN IS INTACT. BED IN LOW POSITION. 1:1 SITTER AT BEDSIDE. SEIZURE PRECAUTIONS IN PLACE. WILL CONTINUE TO MONITOR THE PATIENT.
[2018-01-26 07:26] LABS: BASOPHILS # (AUTO) 0.1 K/uL (0.00-0.22); BASOPHILS % (AUTO) 1.1 % (0.0-2.0); EOSINOPHILS # (AUTO) 0.1 K/uL (0-0.4); HEMATOCRIT 38.7 % (36-48); HEMOGLOBIN 12.9 g/dL (12.0-16.0); LYMPHOCYTES # (AUTO) 2.3 K/uL (2.5-16.5); MEAN CORPUSCULAR HEMOGLOBIN 29 pg (27-31); MEAN CORPUSCULAR HGB CONC 34 g/dL (33-37); MEAN CORPUSCULAR VOLUME 85.3 fL (80-94); MONOCYTES # (AUTO) 0.9 K/uL (0.8-1.0); MONOCYTES % (AUTO) 7.1 % (1.7-9.3); NEUTROPHILS # (AUTO) 9.3 K/uL (1.8-7.7); NEUTROPHILS % (AUTO) 72.8 % (42.2-75.2); PLATELET COUNT (AUTO) 374 K/uL (140-450); RED BLOOD CELL COUNT(AUTO) 4.53 MIL/uL (4.20-5.40); RED CELL DISTRIBUTION WIDTH 13.8 % (11.6-13.7); WHITE BLOOD COUNT (AUTO) 12.8 K/uL (4.8-10.8)
[2018-01-26 07:47] LABS: ANION GAP 12.2 (8-16); CHLORIDE 104 mmol/L (98-107); CREATININE 0.8 mg/dL (0.6-1.3); GLUCOSE 106 mg/dL (74-106); POTASSIUM 4.2 mmol/L (3.5-5.1); SODIUM SERUM 139 mmol/L (136-145); UREA NITROGEN, BLOOD 23 mg/dL (7-18)
[2018-01-26 08:00] VITALS: BP 176/96
[2018-01-26] MEDS: VENLAFAXINE XR 75 MG CAPER PO SCH (08:25)
[2018-01-26] MEDS: SUCRALFATE 1 GM TAB PO SCH ×3 (08:25→17:00)
[2018-01-26] MEDS: lamoTRIgine 25 MG TAB PO SCH (08:26)
--- NOTE | 2018-01-26 08:35 | NUR ---
ADMINISTERED MEDS. PATIENT TOLERATED WELL. SHE REFUSED DIVALPROEX, SHE STATES THAT IS CAUSES HER MORE SEIZURES. POTASSIUM IS 4.2 TODAY SO HELD POTASSIUM PILLS. BED IN LOW POSITION. WILL CONTINUE TO MONITOR THE PATIENT.
[2018-01-26] MEDS ORDERED: levETIRAcetam 500 MG TAB PO SCH (09:00)
[2018-01-26] MEDS ORDERED: DIVALPROEX 250 MG TABEC PO SCH (09:00)
[2018-01-26] MEDS ORDERED: POTASSIUM CHLORIDE 20 MEQ PO SCH (09:00)
[2018-01-26] MEDS ORDERED: MESALAMINE 1.2 GM PO SCH (09:00)
[2018-01-26] MEDS ORDERED: [UNRECOGNIZED DRUG - OTHER] PO SCH (09:00)
[2018-01-26] MEDS ORDERED: POTASSIUM CHLORIDE 10 MEQ TABER PO SCH (09:00)
[2018-01-26] MEDS ORDERED: LORazepam 2 MG/ML VIAL IM/IVP SCH (09:10)
--- NOTE | 2018-01-26 09:15 | NUR ---
ADMINISTERED ATIVAN ORDERED. PATIENT VERY ANXIOUS. SHE IS SCREAMING THAT SHE WANTS TO LEAVE AND THAT SHE HAS ANXIETY BEING HERE. ANXIETY WHEN MALE STUDENT NURSE WENT IN THE ROOM TO SPEAK TO THE OTHER PATIENT. HAD STUDENT NURSE STEP OUT TO HELP ALLEVIATE SOME ANXIETY. SHE IS ON 5150 HOLD. BED IN LOW POSITION. 1:1 SITTER AT BEDSIDE.
--- NOTE | 2018-01-26 09:28 | NUR ---
Called [facility] and spoke with Kenny. No available beds.
--- NOTE | 2018-01-26 09:45 | NUR ---
Called [facility] and spoke with Sophie. No beds at this time. Packet faxed for review.
--- NOTE | 2018-01-26 09:58 | NUR ---
Called [facility] and spoke with Ken. Facility not contracted with patient's insurance.
--- NOTE | 2018-01-26 10:01 | NUR ---
Called [facility] and spoke with Rao. Packet faxed for review. Called [facility] and spoke with Day. Possible beds. Packet faxed for review.
[2018-01-26] MEDS: NACL 0.9% 1,000 ML IV SCH (11:56)
--- NOTE | 2018-01-26 11:57 | NUR ---
ADMINISTERED IVF PATIENT TOLERATING WELL. IV IS CLEAN, DRY AND INTACT. SPOKE TO [facility] AT [facility] AND GAVE HER REPORT. SHE STATED THAT SHE IS BEING ACCEPTED AT THE FACILITY. NO ROOM NUMBER YET BUT THEY SAID THEY WILL GIVE HER A ROOM NUMBER WHEN SHE GETS THERE. GAVE MY CALL BACK NUMBER IF SHE NEEDS ANY FURTHER INFORMATION. DOCTOR IS AWARE. WILL CONTINUE TO MONITOR THE PATIENT.
[2018-01-26 12:00] VITALS: BP 145/82
--- NOTE | 2018-01-26 12:15 | NUR ---
Clinical [place] faxed [place] Marg[place] [facility] [phone]
--- NOTE | 2018-01-26 13:56 | NUR ---
ADMINISTERED MEDS. PATIENT TOLERATED WELL. BED IN LOW POSITION. WILL CONTINUE TO MONITOR THE PATIENT. 1:1 SITTER AT BEDSIDE.
[2018-01-26 16:00] VITALS: BP 150/81
--- NOTE | 2018-01-26 16:01 | NUR ---
PATIENT IS RESTING. NO SIGNS OF DISTRESS ON ROOM AIR. BED IN LOW POSITION. 1:1 SITTER AT BEDSIDE.
--- NOTE | 2018-01-26 16:59 | NUR ---
EDUCATED PATIENT ON DISEASE PROCESS, MEDS, TO SEE PCP 3-5 BUSINESS DAYS, AND WHEN TO COME TO THE NEAREST ER. PATIENT VERBALIZED UNDERSTANDING. SIGNED ALL PAPERWORK. WILL AWAIT FOUNDRY ENGINEER BY [facility]. ID BANDS ARE REMOVED. WILL CONTINUE TO MONITOR THE PATIENT.
--- NOTE | 2018-01-26 17:05 | NUR ---
PATIENT REFUSED MEDS. EXPLAINED THE RISKS TO THE PATIENT. PATIENT VERBALIZED UNDERSTANDING AND STILL DOES NOT WANT TO TAKE THE MEDS. WILL CONTINUE TO MONITOR THE PATIENT. BED IN LOW POSITION. 1:1 SITTER AT BEDSIDE.
--- NOTE | 2018-01-26 18:15 | NUR ---
GAVE DILIA, HER SISTER TWO CALLS REGARDING HER TRANSFER TO [facility]. GAVE MY CALL BACK NUMBER. WILL AWAIT HER CALL BACK
--- NOTE | 2018-01-26 18:20 | NUR ---
REPORT GIVEN TO [facility]. PATIENT LEFT IN STABLE CONDITION WITH [facility] IN A GURNEY
[2018-01-27 08:28] LABS: T4 (THYROXINE) 11.1 ug/dL (4.5-12.0)
== END 2018-01-26 18:20 | DRG 683 ==
LOC: MED 13:28 → MTU 18:44
PROVIDERS: ADMIT General Practice; ATTEND General Practice
DX: N17.0 Acute kidney failure with tubular necrosis (principal); F23 Brief psychotic disorder; K51.90 Ulcerative colitis, unspecified, without complications; E78.5 Hyperlipidemia, unspecified; F41.9 Anxiety disorder, unspecified; Z88.0 Allergy status to penicillin; F32.9 Major depressive disorder, single episode, unspecified; G40.909 Epilepsy, unspecified, not intractable, without status epilepticus; Z96.651 Presence of right artificial knee joint; G47.00 Insomnia, unspecified; R32 Unspecified urinary incontinence; T43.505A Adverse effect of unspecified antipsychotics and neuroleptics, initial encounter; Y92.89 Other specified places as the place of occurrence of the external cause; D72.829 Elevated white blood cell count, unspecified
CPT/HCPCS: 36415; 71045; 80048; 80053; 80305; 81001; 82040; 82140; 82150; 83036; 83690; 83735; 83880; 84100; 84436; 84439; 84443; 84479; 85025; 85610; 85730; 87081; 93005; 99285; G0480; G0482; J2060; J7030; Q0092

== ENCOUNTER 2018-02-17 18:44 | Inpatient (IN) | payer MEDICARE, MEDICAID ==
[~2018-02-17] VITALS: Ht 162.6 cm; Wt 72.6 kg
[2018-02-17 18:47] VITALS: BP 158/96
[2018-02-17] MEDS ORDERED: NACL 0.9% 1,000 ML IV ONE (18:55)
--- NOTE | 2018-02-17 18:55 | NUR ---
72F BIBA WITH C/O ALOC TODAY AT UNKNOWN TIME. PER FORDER OPERATOR, FAMILY CALLED D/T PATIENT NOT TAKING HER PSYCH MEDICATION. ON SCENE, PT FOUND WITH HAIR TIE IN MOUTH AND RAMBLING RANDOM THOUGHTS. ON ARRIVAL, PT IS AWAKE AND ALERT. GCS=14. PT ANSWERS QUESTIONS APPRIORIATE AT TIMES. RANDOM IDEA AND THOUGHTS. PT DENIES ANY HI OR SI AT THIS TIME. PT APPEARS ANXIOUS BUT COOPERATIVE. PT DENIES ANY PAIN. RR ARE TACHYPNEIC AND EVEN. SKIN COLOR IS APPRIOPRAITE FOR ETHNICITY/WARM. NAD. PATIENT CHANGED INTO GOWN, PLACED TO CARDIAC, BP, PULSE, AND PULSE OX MONITORING.
--- NOTE | 2018-02-17 19:14 | NUR ---
RECEIVED REPORT FROM AM NURSE. PT RESTING IN BED, RR EVEN AND UNLABORED, DENIES PAIN. ALL NEEDS MET AT THIS TIME.
--- NOTE | 2018-02-17 19:19 | NUR ---
Pt report given to Yong CORREA. Transfer of care at this time.
[2018-02-17 19:36] LABS: BASOPHILS # (AUTO) 0.1 K/uL (0.00-0.22); BASOPHILS % (AUTO) 0.8 % (0.0-2.0); EOSINOPHILS # (AUTO) 0.2 K/uL (0-0.4); EOSINOPHILS % (AUTO) 2.7 % (0.0-4.0); HEMATOCRIT 33.4 % (36-48); HEMOGLOBIN 11.3 g/dL (12.0-16.0); LYMPHOCYTES # (AUTO) 2.2 K/uL (2.5-16.5); MEAN CORPUSCULAR HEMOGLOBIN 28 pg (27-31); MEAN CORPUSCULAR HGB CONC 34 g/dL (33-37); MEAN CORPUSCULAR VOLUME 83.7 fL (80-94); MONOCYTES % (AUTO) 11.9 % (1.7-9.3); NEUTROPHILS % (AUTO) 58.6 % (42.2-75.2); PLATELET COUNT (AUTO) 315 K/uL (140-450); RED BLOOD CELL COUNT(AUTO) 3.99 MIL/uL (4.20-5.40); RED CELL DISTRIBUTION WIDTH 13.9 % (11.6-13.7); WHITE BLOOD COUNT (AUTO) 8.5 K/uL (4.8-10.8)
[2018-02-17 20:04] LABS: ALBUMIN 3.5 g/dL (3.4-5.0); ANION GAP 10.2 (8-16); ASPARTATE AMINOTRANSFERASE 9 U/L (15-37); CARBON DIOXIDE 27.6 mmol/L (21-32); CHLORIDE 104 mmol/L (98-107); CREATININE 0.9 mg/dL (0.6-1.3); GLUCOSE 99 mg/dL (74-106); POTASSIUM 3.8 mmol/L (3.5-5.1); SODIUM SERUM 138 mmol/L (136-145); TOTAL BILIRUBIN 0.1 mg/dL (0.0-1.0); UREA NITROGEN, BLOOD 16 mg/dL (7-18)
--- NOTE | 2018-02-17 20:05 | NUR ---
PT TAKEN TO CT
[2018-02-17 20:07] LABS: PROTHROMBIN TIME 10.4 secs (10.8-13.4)
[2018-02-17 20:10] LABS: SALICYLATE < 2.8 mg/dL (2.8-20.0)
--- NOTE | 2018-02-17 20:10 | NUR ---
PT BACK FROM CT. PT REMOVED IV, PLACED NEW IV 20G ON R FA, PT TOLERATED WELL.
[2018-02-17 20:22] LABS: BARBITURATE, URINE NEG. ng/ml (NEG <=200); BENZODIAZEPINE, URINE NEG. ng/mL (NEG <=200); CANNABINOID, URINE NEG. ng/mL (NEG <=50); COCAINE, URINE NEG. ng/mL (NEG <=300); OPIATE, URINE NEG. ng/mL (NEG <=2000); PHENCYCLIDINE SCREEN,URINE NEG. ng/mL (NEG <=25)
[2018-02-17 20:38] LABS: APPEARANCE,URINE CLEAR (CLEAR); BILIRUBIN,URINE NEGATIVE (NEGATIVE); BLOOD, URINE TRACE-I (NEGATIVE); COLOR,URINE YELLOW (YELLOW); LEUKOCYTE ESTERASE ,URINE NEGATIVE (NEGATIVE); NITRITE, URINE NEGATIVE (NEGATIVE); PH,URINE 5.5 (5.0-9.0); UGLUCOSE NEGATIVE (NEGATIVE)
[2018-02-17 20:42] LABS: ACETAMINOPHEN < 0.5 ug/ml (10-30)
--- NOTE | 2018-02-17 21:00 | NUR ---
PT SEEN WITH IV REMOVED, PT REFUSING TO HAVE IV PLACED AT THSI TIME. PT IS MORE ALERT, AOX3-4, CONFUSED AT TIMES, PT INSISTING ON WANDERING AROUND UNIT DESPITE EDUCATION, AMBULATING STEADILY. PT LOOKING FOR HER PURSE, BELONGINGS CHECKED, PT DID NOT ARRIVE IN ER WITH HER PURSE. ALL NEEDS MET AT THIS TIME.
[2018-02-17] MEDS ORDERED: DOCUSATE SODIUM 100 MG GELCAP PO PRN (21:50)
[2018-02-17] MEDS ORDERED: ACETAMINOPHEN 325 MG TAB PO PRN (21:50)
[2018-02-17] MEDS ORDERED: ONDANSETRON 4 MG/2 ML VIAL IM/IVP PRN (21:50)
[2018-02-17] MEDS ORDERED: ZOLPIDEM 5 MG TAB PO PRN (21:50)
[2018-02-17] MEDS ORDERED: IBUPROFEN 800 MG TAB PO PRN (21:50)
[2018-02-17 22:24] LABS: MAGNESIUM 1.9 mg/dL (1.8-2.4); PHOSPHORUS 2.8 mg/dL (2.5-4.9); THYROID STIMULATING HORMONE 3.05 uIU/mL (0.34-3.74)
[2018-02-17 23:00] VITALS: BP 144/71
[2018-02-17] MEDS: NACL 0.9% 1,000 ML IV SCH (23:00)
--- NOTE | 2018-02-17 23:00 | NUR ---
Admitted from ER TO MED SURGICAL UNIT , with chief complaint of ALTERED MENTAL STATUS, 72 y/o ,Female, Cooperative, AWAKE, A/OX3, WITH FORGETFULNESS, OCCASIONALLY STUBBORN, ABLE TO AMBULATE BY HERSELF. PLAN OF CARE FOR THE SHIFT DISCUSSED. NEEDS REINFORCEMENT. NO IV LINE, PER ER NURSE ENDORSEMENT, PATIENT PULLED OUT IV LINE AFTER 300 ML OF NS INFUSED. REFUSED IV LINE INSERTION. GAIT WEAK, FALL RISK. ON SEIZURE AND FALL PRECAUTION, SIDE RAILS PADDED. HEAD TO TOE ASSESSMENT DONE WITH MADELINE SHARMA, SKIN INTACT. oriented to call light, bed, phone,television, bathroom, smoking policy,visiting hours, procedures, ID bracelet on. Belongings list checked.
[2018-02-17] MEDS ORDERED: MECLIZINE 25 MG TAB PO PRN (23:10)
--- NOTE | 2018-02-17 23:13 | NUR ---
Patient will be admitted to care of DR. WLYIE. Admited to [facility]. Will go to [id number]. Belongings list completed. Report to RADHA WILDER AT BEDSIDE.
--- NOTE | 2018-02-17 23:53 | NUR ---
Patient's Plan of Care was discussed and reviewed with ELECTRICIAN MAINTENANCE: TINA BUTTERFIELD
[2018-02-18] VITALS: BP 154/86
--- NOTE | 2018-02-18 | NUR ---
SLEEPING COMFORTABLY IN BED.
[2018-02-18] MEDS ORDERED: LORazepam 2 MG/ML VIAL IM/IVP SCH (01:00)
--- NOTE | 2018-02-18 01:00 | NUR ---
AMBULATING ALWAYS, SEQUENTIALS NOT APPLIED.
[2018-02-18] MEDS ORDERED: LORazepam 1 MG TAB PO SCH ×2 (01:30→05:00)
[2018-02-18 04:00] VITALS: BP 146/78
--- NOTE | 2018-02-18 05:00 | NUR ---
VERY EAGER TO SPEAK WITH SISTER IN THE PHONE BUT SISTER DILIA GOT UPSET, DOES NOT WANT HER TO GO HOME. CRIED AND GOT ANXIOUS.
--- NOTE | 2018-02-18 05:01 | NUR ---
WITH ANXIETY, MEDICATED WITH ATIVAN 1 MG. PO.
--- NOTE | 2018-02-18 05:30 | NUR ---
ASSISTED TO GET OUT OF BED TO GO TO BR. FEELS DIZZY AND VOMITED A SMALL AMOUNT OF FLUIDS UPON RETURNING TO BED. Addendum: 02/18/18 at 0658 by Matilda Johnson LVN ERROR: THIS CHARTING IS NOT FOR THIS PATIENT.
--- NOTE | 2018-02-18 05:50 | NUR ---
MEDICATED WITH ZOFRAN 4 MG.IVP BY MADELINE HERRERA. Addendum: 02/18/18 at 0658 by Matilda Johnson LVN THIS CHARTING IS NOT FOR THIS PATIENT.
--- NOTE | 2018-02-18 06:01 | NUR ---
NO ANXIETY NOTED, SLEEPING.
[2018-02-18 06:28] LABS: BASOPHILS # (AUTO) 0.1 K/uL (0.00-0.22); BASOPHILS % (AUTO) 0.8 % (0.0-2.0); EOSINOPHILS # (AUTO) 0.2 K/uL (0-0.4); HEMATOCRIT 36.5 % (36-48); HEMOGLOBIN 12.5 g/dL (12.0-16.0); LYMPHOCYTES # (AUTO) 1.6 K/uL (2.5-16.5); LYMPHOCYTES % (AUTO) 18.9 % (20.5-51.1); MEAN CORPUSCULAR HEMOGLOBIN 28 pg (27-31); MEAN CORPUSCULAR HGB CONC 34 g/dL (33-37); MEAN CORPUSCULAR VOLUME 82.8 fL (80-94); MONOCYTES # (AUTO) 1.2 K/uL (0.8-1.0); NEUTROPHILS # (AUTO) 5.3 K/uL (1.8-7.7); NEUTROPHILS % (AUTO) 64.3 % (42.2-75.2); PLATELET COUNT (AUTO) 353 K/uL (140-450); RED BLOOD CELL COUNT(AUTO) 4.41 MIL/uL (4.20-5.40); RED CELL DISTRIBUTION WIDTH 14.1 % (11.6-13.7); WHITE BLOOD COUNT (AUTO) 8.3 K/uL (4.8-10.8)
[2018-02-18] MEDS: PANTOPRAZOLE 40 MG TABEC PO SCH (06:52)
[2018-02-18 07:01] LABS: ANION GAP 13.2 (8-16); CARBON DIOXIDE 23.9 mmol/L (21-32); CHLORIDE 105 mmol/L (98-107); GLUCOSE 113 mg/dL (74-106); POTASSIUM 4.1 mmol/L (3.5-5.1); SODIUM SERUM 138 mmol/L (136-145); UREA NITROGEN, BLOOD 16 mg/dL (7-18)
[2018-02-18 07:08] LABS: CHOL/HDL RATIO 3.1 (1-4.5); MAGNESIUM 1.8 mg/dL (1.8-2.4); PHOSPHORUS 3.3 mg/dL (2.5-4.9)
--- NOTE | 2018-02-18 07:15 | NUR ---
CONDITION REMAIN STABLE. ENDORSED TO AM NURSE FOR CONTINUITY OF CARE.
--- NOTE | 2018-02-18 07:16 | NUR ---
RECEIVED BEDSIDE REPORT FROM CHIEF STEWARD/STEWARDESS NURSE. PATIENT IS SLEEPING. NO SIGNS OF DISTRESS ON ROOM AIR. NO IV, PATIENT REFUSED. SHE IS ALERT AND ORIENTED X3. SHE HAS EPISODES OF CONFUSION. SHE AMBULATES, GAIT IS STEADY. SKIN IS INTACT. BED IN LOW POSITION. CALL LIGHT WITHIN REACH. WILL CONTINUE TO MONITOR THE PATIENT.
--- NOTE | 2018-02-18 07:41 | NUR ---
PATIENT HAS BEEN SCREENED AND CATEGORIZED LOW RISK. PATIENT WILL BE SEEN WITHIN 7 DAYS OF ADMISSION. 02/24/[address]
[2018-02-18 08:00] VITALS: BP 140/72
--- NOTE | 2018-02-18 08:00 | NUR ---
PATIENT IS CRYING, SAYING THAT SHE JUST TALKED TO HER SISTER AND SHES MEAN. HELPED HER RELAX, TOLD HER I AM HERE FOR HER AND THAT I WILL BE HER NURSE TODAY. PATIENT IS THANKFUL.
[2018-02-18] MEDS: DIVALPROEX 500 MG TABEC PO SCH ×2 (08:54→21:00)
[2018-02-18] MEDS: FAMOTIDINE 20 MG TAB PO SCH ×2 (08:54→21:24)
[2018-02-18] MEDS: OXYBUTYNIN 5 MG TAB PO SCH ×3 (08:54→16:50)
[2018-02-18] MEDS: SUCRALFATE 1 GM TAB PO SCH ×4 (08:55→21:25)
[2018-02-18] MEDS: VENLAFAXINE XR 75 MG CAPER PO SCH ×2 (08:55→21:28)
[2018-02-18] MEDS: lamoTRIgine 25 MG TAB PO SCH ×2 (08:56→21:25)
[2018-02-18] MEDS: POTASSIUM CHLORIDE 10 MEQ TABER PO SCH (08:56)
[2018-02-18] MEDS: levETIRAcetam 500 MG TAB PO SCH ×2 (08:56→21:24)
--- NOTE | 2018-02-18 08:59 | NUR ---
ADMINISTERED MEDS. PATIENT TOLERATED WELL. SHE REFUSED DIVALPROEX, SHE SAYS IT CAUSES HER SEIZURES. WILL CONTINUE TO MONITOR THE PATIENT
[2018-02-18] MEDS ORDERED: ZONISAMIDE 100 MG PO SCH (09:00)
[2018-02-18] MEDS ORDERED: DIVALPROEX SODIUM 500 MG PO SCH (09:00)
[2018-02-18] MEDS ORDERED: LISINOPRIL 20 MG TAB PO SCH (09:00)
[2018-02-18] MEDS ORDERED: NON-FORMULARY ITEM (Levetiracetam* (Keppra Xr*) 500 MG) PO SCH (09:00)
[2018-02-18] MEDS ORDERED: MESALAMINE 1.2 GM PO SCH (09:00)
--- NOTE | 2018-02-18 11:01 | NUR ---
PATIENT SITTING IN BED CALMLY WATCHING TV. WILL CONTINUE TO MONITOR THE PATIENT.
--- NOTE | 2018-02-18 13:07 | NUR ---
ADMINISTERED MEDS. PATIENT TOLERATED WELL. BED IN LOW POSITION. CALL LIGHT WITHIN REACH. PATIENT EATING A SALAD. WILL CONTINUE TO MONITOR THE PATIENT
--- NOTE | 2018-02-18 15:00 | NUR ---
PATIENT IS SLEEPING. NO SIGNS OF DISTRESS ON ROOM AIR. WILL CONTINUE TO MONITOR THE PATIENT.
[2018-02-18] MEDS: NACL 0.9% 1,000 ML IV SCH (15:40)
[2018-02-18 16:00] VITALS: BP 124/76
--- NOTE | 2018-02-18 16:01 | NUR ---
PATIENT LAYING IN BED WATCHING TV. SHE WANTS TO BE TRANSFERRED BECAUSE SHE SAID SHES NOT USED TO BEING NEXT TO SICK PEOPLE. SHE ASKED ME FOR A MASK. GAVE PATIENT A MASK. NO OTHER COMPLAINTS AT THIS TIME. SHE IS REQUESTING PLACEMENT AT A PSYCH FACILITY, DR PATTERSON IS AWARE. WILL CONTINUE TO MONITOR THE PATIENT.
--- NOTE | 2018-02-18 16:51 | NUR ---
ADMINISTERED MEDS. PATIENT TOLERATED WELL. PATIENT IN A GOOD MOOD, LAUGHING AND CONVERSING WITH ME. WILL CONTINUE TO MONITOR THE PATIENT.
--- NOTE | 2018-02-18 17:55 | NUR ---
PATIENT IS EATING HER DINNER. ORDERED PATIENT A VEGETARIAN BURGER. SHE IS HAPPY ABOUT HER DINNER. SHE IS A VEGETARIAN. WILL CONTINUE TO MONITOR THE PATIENT.
--- NOTE | 2018-02-18 19:25 | NUR ---
GAVE BEDSIDE REPORT TO PRESSURE TESTER OPERATOR NURSE. PATIENT IS IN STABLE CONDITION
--- NOTE | 2018-02-18 19:26 | NUR ---
RECEIVED REPORT FROM DAY SHIFT RN AT PT BEDSIDE FOR CONTINUITY OF CARE. PT IS A/OX3, ON ROOM AIR. PT IS ABLE TO MAKE NEEDS KNOWN, ABLE TO FOLLOW COMMANDS. RESPIRATIONS EVEN AND UNLABORED. PT SKIN IS INTACT. PT REFUSED IV ACCESS. DISCUSSED PLAN OF CARE WITH PT, PT VERBALIZED UNDERSTANDING. VITAL SIGNS WITHIN NORMAL LIMITS. PT STABLE, NO SIGNS OF DISTRESS NOTED AT THIS TIME. BED IN LOWEST POSITION, BED ALARM ON. CALL LIGHT WITHIN REACH, WILL CONTINUE TO MONITOR.
[2018-02-18] MEDS: LORazepam 1 MG TAB PO PRN (19:53)
--- NOTE | 2018-02-18 19:55 | NUR ---
PT STATES FEELING VERY ANXIOUS. ADMINISTERED ATIVAN ORDERED FOR ANXIETY, PT TOLERATED WELL. PT STABLE, NO SIGNS OF DISTRESS NOTED AT THIS TIME. BED IN LOWEST POSITION, BED ALARM ON. CALL LIGHT WITHIN REACH, WILL CONTINUE TO MONITOR.
[2018-02-18] MEDS ORDERED: PALIPERIDONE 9 MG PO SCH (21:00)
--- NOTE | 2018-02-18 21:30 | NUR ---
ADMINISTERED SCHEDULED MEDICATIONS, PT TOLERATED WELL. PT REFUSED TO TAKE DEPAKOTE BECAUSE PT STATES IT CAUSES HER SEIZURES. PT STABLE, NO SIGNS OR SYMPTOMS OF DISTRESS NOTED. WILL CONTINUE TO MONITOR.
[2018-02-19] VITALS: BP 99/52
--- NOTE | 2018-02-19 | NUR ---
VITAL SIGNS WITHIN NORMAL LIMITS. PT STABLE, NO SIGNS OF DISTRESS NOTED AT THIS TIME. BED IN LOWEST POSITION, BED ALARM ON. CALL LIGHT WITHIN REACH, WILL CONTINUE TO MONITOR.
--- NOTE | 2018-02-19 03:00 | NUR ---
PT STABLE, NO SIGNS OF DISTRESS NOTED AT THIS TIME. BED IN LOWEST POSITION, BED ALARM ON. CALL LIGHT WITHIN REACH, WILL CONTINUE TO MONITOR.
[2018-02-19] MEDS: LORazepam 1 MG TAB PO PRN ×4 (05:11→22:19)
--- NOTE | 2018-02-19 05:12 | NUR ---
PT STATES THAT SHE IS FEELING ANXIOUS AGAIN AND REQUESTS ATIVAN TO HELP HER THROUGH HER ANXIETY. ADMINISTERED ATIVAN ORDERED, PT TOLERATED WELL. VITAL SIGNS WITHIN NORMAL LIMITS. PT STABLE, NO SIGNS OF DISTRESS NOTED AT THIS TIME. BED IN LOWEST POSITION, BED ALARM ON. CALL LIGHT WITHIN REACH, WILL CONTINUE TO MONITOR.
[2018-02-19] MEDS: PANTOPRAZOLE 40 MG TABEC PO SCH (06:58)
--- NOTE | 2018-02-19 06:59 | NUR ---
ADMINISTERED SCHEDULED MEDICATIONS, PT TOLERATED WELL.
--- NOTE | 2018-02-19 07:26 | NUR ---
ENDORSED PT TO DAY SHIFT RN FOR CONTINUITY OF CARE. PT IN STABLE CONDITION.
--- NOTE | 2018-02-19 07:26 | NUR ---
RECEIVED BEDSIDE REPORT FROM MADELINE EMMANUEL, PT IS AWAKE, ALERT, ABLE TO MAKE NEEDS KNOWN, NO IV ACCESS, ON RA, IN BED, CALL LIGHT LIGHT WITHIN REACH. UPDATED BOARD.
--- NOTE | 2018-02-19 07:55 | NUR ---
RECEIVED IRWIN FROM PHARMACY, ASKED TO CONFIRM HOME MEDICATIONS NARENDRA ANGULO, ZONISAMIDMakayla. WILL FOLLOW UP WITH .
[2018-02-19 08:00] VITALS: BP 105/65
--- NOTE | 2018-02-19 08:10 | NUR ---
PT REFUSES TO TAKE DEPAKOTE AND K-DUR. EDUCATION PROVIDED. WILL HOLD ZESTRIL BP: 105/65. WILL CONTINUE TO MONITOR.
[2018-02-19] MEDS: NACL 0.9% 1,000 ML IV SCH (08:20)
[2018-02-19] MEDS: SUCRALFATE 1 GM TAB PO SCH ×4 (08:59→20:33)
[2018-02-19] MEDS: DIVALPROEX 500 MG TABEC PO SCH ×2 (09:00→20:39)
[2018-02-19] MEDS: POTASSIUM CHLORIDE 10 MEQ TABER PO SCH (09:00)
[2018-02-19] MEDS: OXYBUTYNIN 5 MG TAB PO SCH ×3 (09:00→18:04)
[2018-02-19] MEDS: VENLAFAXINE XR 75 MG CAPER PO SCH ×2 (09:01→20:34)
[2018-02-19] MEDS: levETIRAcetam 500 MG TAB PO SCH ×2 (09:01→20:39)
[2018-02-19] MEDS: FAMOTIDINE 20 MG TAB PO SCH ×2 (09:02→20:35)
[2018-02-19] MEDS: lamoTRIgine 25 MG TAB PO SCH ×2 (09:02→20:35)
--- NOTE | 2018-02-19 10:50 | NUR ---
PT UNABLE TO REMEMBER MORNING MEDICATION ADMINISTRATION. WILL CONTINUE TO MONITOR. CALL LIGHT WITH IN REACH.
[2018-02-19] MEDS ORDERED: LISINOPRIL 10 MG TAB PO SCH (11:03)
--- NOTE | 2018-02-19 11:24 | NUR ---
FAXED INITIAL REVIEW TO [facility] [phone] PHONE GARTH [phone]
--- NOTE | 2018-02-19 13:43 | NUR ---
Manager Auto Note: Per Melissa from [facility] , she does not have any female rooms available at this time. Per patient, she is in agreement with returning home with her sister Ubaldo if there aren't any room and boards able to accept her.
--- NOTE | 2018-02-19 14:00 | NUR ---
SISTER AT BEDSIDE, PT SHOWS NO SIGNS OF DISTRESS, CALL LIGHT WITHIN REACH, WILL CONTINUE TO MONITOR.
--- NOTE | 2018-02-19 14:48 | NUR ---
DUE MEDICATIONS GIVEN PT TOLERATED WELL, CALL LIGHT WITHIN REACH.
[2018-02-19] MEDS: CHLORHEXADINE GLUC 2% CLOTH TP SCH (15:48)
[2018-02-19] MEDS: MUPIROCIN CA NASAL 2% 1GM TUBE NS SCH (15:48)
--- NOTE | 2018-02-19 17:30 | NUR ---
DUE MEDICATIONS WILL BE GIVEN. EDUCATED ABOUT MEDICATIONS. PT REQUEST ATIVAN FOR AGITATION, WILL GIVE ACCORDING TO STEFANO BAEZ.
[2018-02-19 17:51] VITALS: BP 110/68
--- NOTE | 2018-02-19 19:34 | NUR ---
ENDORSED PT TO FUNERAL ARRANGEMENT DIRECTOR NURSE BLAS. PT STABLE.
--- NOTE | 2018-02-19 19:40 | NUR ---
RECEIVED REPORT FROM DAY SHIFT RN, PATIENT RESTING IN BED, AWAKE ALERT ORIENTED X2, FOLLOW SIMPLE COMMENDS, NO S/S OF DISTRESS NOTED, RESPIRATION EVEN AND UNLABORED, NO IV ACCESS AT THIS TIME. PATIENT REFUSED IV AND STATED," I DON'T LIKE NEEDLE IN MY VEIN." PER DAY SHIFT RN, DOCTORS AWARE OF NO IV ACCESS. PLAN OF CARE DISCUSSED. PATIENT VERBALIZED UNDERSTANDING. CALL LIGHT WITHIN REACH, SAFETY MEASURE ENSURED, WILL CONTINUE TO MONITOR.
--- NOTE | 2018-02-19 20:35 | NUR ---
DUE MEDICATION GIVEN, PATIENT TOLERATED WELL. BUT PATIENT REFUSED TO TAKE DEPAKOTE, STATED," I DON'T TAKE DEPAKOTE, BECAUSE I THINK TAKING DEPAKOTE WITH MY PSYCH MEDICATIONS WILL CAUSE SEIZURE." EDUCATION PROVIDED, PATIENT STILL REFUSED. CALL LIGHT WITHIN REACH, SAFETY MEASURE ENSURED, WILL CONTINUE TO MONITOR.
[2018-02-19] MEDS ORDERED: MUPIROCIN 2% OINT 22 GM TUBE TP SCH (21:00)
--- NOTE | 2018-02-19 21:59 | NUR ---
PATIENT CALLED AND SAID," I FEEL ANXIOUS AND AGITATED, CAN I HAVE ATIVAN." BP 112/61, HR 75, WILL ADMINISTER ATIVAN ORDERED.
[2018-02-20] VITALS: BP 108/61
[2018-02-20] MEDS ORDERED: ZOLPIDEM 5 MG TAB PO ONE (00:25)
--- NOTE | 2018-02-20 00:35 | NUR ---
PATIENT STANDING IN FRONT OF THE NURSE'S STATION, ASKING FOR SLEEPING PILL. ASSISTED PATIENT BACK TO HER ROOM AND INFORMED HER THAT AMBIEN WAS GIVEN TO HER ALREADY, PATIENT SAID," CAN I HAVE ONE MORE." INFORMED THE PATIENT THAT I WOULD ASK THE DOCTOR. PATIENT RESTING IN BED, SAFETY MEASURE ENSURED, WILL CONTINUE TO MONITOR.
[2018-02-20] MEDS: NACL 0.9% 1,000 ML IV SCH ×2 (01:00→17:40)
--- NOTE | 2018-02-20 01:03 | NUR ---
ADMINISTERED ONE TIME DOSE AMBIEN 5MG, PATIENT TOLERATED WELL. CALL LIGHT WITHIN REACH, SAFETY MEASURE ENSURED, WILL CONTINUE TO MONITOR.
[2018-02-20] MEDS: LORazepam 1 MG TAB PO PRN ×3 (02:59→11:23)
--- NOTE | 2018-02-20 03:00 | NUR ---
PT HAS BEEN CALLING RELATIVES AND NO ONE IS ANSWERING THE PHONE. PT IS CRYING AND VERY ANXIOUS. ADMINISTERED ATIVAN ORDERED. PT TOLERATED WELL. PT CURRENT BLOOD PRESSURE 119/70 WITH HEART RATE 70. NO SIGNS OF DISTRESS NOTED.
--- NOTE | 2018-02-20 03:51 | NUR ---
PATIENT CAME TO THE NURSE'S STATION ASKING FOR SANDWICH. ASSISTED PATIENT BACK TO HER ROOM, SANDWICH AND JUICE GIVEN REQUESTED. CALL LIGHT WITHIN REACH, SAFETY MEASURE ENSURED, WILL CONTINUE TO MONITOR.
--- NOTE | 2018-02-20 05:13 | NUR ---
ENDORSED PLAN OF CARE TO MADELINE LAWSON, PATIENT IS IN STABLE CONDITION.
--- NOTE | 2018-02-20 05:15 | NUR ---
ASSUMED CARE OF PATIENT, ASLEEP. NO COMPLAINS. NO DISTRESS NOTED. CALL LIGHT WITHIN REACH.
--- NOTE | 2018-02-20 05:50 | NUR ---
PATIENT GETTING ON THE ROOM AND VERY AGITATED. DR. ELMORE IN UNIT AND ADJUSTED MEDICATION AND MIGHT PUT PATIENT 5150. SPOKE WITH PATIENT AND CALLED SECURITY. ESCORTED BACK TO ROOM.
[2018-02-20] MEDS: PANTOPRAZOLE 40 MG TABEC PO SCH (06:09)
[2018-02-20] MEDS ORDERED: QUEtiapine FUMARATE 25 MG TAB PO SCH (06:30)
--- NOTE | 2018-02-20 07:22 | NUR ---
ENDORSED CARE AT BEDSIDE WITH VITOR CORREA, PATIENT IN STABLE CONDITION. Addendum: 02/20/18 at 0724 by Jacklyn Jung RN ENDORSED CARE AT BEDSIDE WITH CARMELITA CORREA, PATIENT IN STABLE CONDITION.
--- NOTE | 2018-02-20 07:23 | NUR ---
RECEIVED REPORT FROM CLIENT SERVICES ASSOCIATE NURSE RENNY AT BEDSIDE FOR CONTINUITY OF CARE. PT IS AWAKE AND ORIENTED X2. INTRODUCED SELF AND UPDATED BOARD. PT DENIES PAIN. NO SOB. O2 SAT 98% ON RA. LUNG SOUNDS CLEAR ON AUSCULTATION. SKIN WARM AND DRY. PT SITTING UP IN BED EATING BREAKFAST. PT ASKED FOR SHOWER. TOLD PT NO SHOWER IN ROOM. VERBALIZED UNDERSTANDING. CALL LIGHT WITHIN REACH. WILL CONTINUE TO MONITOR.
[2018-02-20 08:00] VITALS: BP 108/63
[2018-02-20] MEDS: levETIRAcetam 500 MG TAB PO SCH (08:46)
[2018-02-20] MEDS: FAMOTIDINE 20 MG TAB PO SCH (08:47)
[2018-02-20] MEDS: POTASSIUM CHLORIDE 10 MEQ TABER PO SCH (08:47)
[2018-02-20] MEDS: SUCRALFATE 1 GM TAB PO SCH ×3 (08:48→17:46)
[2018-02-20] MEDS: lamoTRIgine 25 MG TAB PO SCH (08:48)
[2018-02-20] MEDS: OXYBUTYNIN 5 MG TAB PO SCH ×3 (08:48→17:47)
--- NOTE | 2018-02-20 08:48 | NUR ---
ADMINISTERED SCHEDULED MEDS. NON ADMIN DEPAKOTE AND EFFEXOR. PT WAS STATING SHE DOES NOT TAKE THOSE MEDS. I EDUCATED PT ON RISKS OF NON ADMIN AND BENEFITS OF MEDS. PT STILL REFUSED. ALSO PT WAS STATING SHE WANTED TO TAKE ANOTHER ATIVAN. TOLD PT THAT SHE HAD ONE THIS MORNING AND TOO CLOSE FOR NEXT DOSE. PT SAID OK. TOLERATED ADMIN MEDS WELL. PT SITTING UP IN CHAIR NOW. NO SIGNS OF DISTRESS. WILL CONTINUE TO MONITOR.
[2018-02-20] MEDS: DIVALPROEX 500 MG TABEC PO SCH (08:52)
[2018-02-20] MEDS ORDERED: LISINOPRIL 10 MG TAB PO SCH (09:00)
[2018-02-20] MEDS: VENLAFAXINE XR 75 MG CAPER PO SCH (09:00)
[2018-02-20 09:19] LABS: LAMOTRIGINE None Detected ug/mL (2.0-20.0)
--- NOTE | 2018-02-20 10:04 | NUR ---
PT WAS LOOKING OUT OF ROOM ASKING WHERE IS HER CAT. ORIENTED PT THAT THERE IS NO CAT HERE. ASSISTED PT BACK IN ROOM. SITTING IN CHAIR. CHANGED BED LINENS. DR AND RESIDENTS CAME IN AND SPOKE WITH PT. VERBALIZED UNDERSTANDING. NO SIGNS OF DISTRESS. PT WENT BACK TO BED AND WENT TO SLEEP. CALL LIGHT WITHIN REACH. WILL CONTINUE TO MONITOR.
--- NOTE | 2018-02-20 11:23 | NUR ---
PT GOT OUT OF ROOM AND TO NURSING STATION. PT WAS ANXIOUS AND ASKING WHERE HER CLOTHES WERE. TOLD PT WILL BRING BELONGINGS BEFORE SHE GOES HOME AND THAT PERSONAL BELONGINGS ARE AT BEDSIDE. PT WAS ASKING WHERE HER SISTER IS. INFORMED HER SHE HAD NOT COME IN TODAY. PT REQUESTED TO TAKE HER MEDS. OFFERED ATIVAN FOR ANXIETY. PT AGREED. ADMINISTERED ATIVAN. PT TOLERATED WELL. PT IS LYING IN BED NOW. ORIENTED PT ON USE OF CALL LIGHT. WILL CONTINUE TO MONITOR.
[2018-02-20] MEDS: QUEtiapine FUMARATE 25 MG TAB PO SCH ×2 (12:31→17:46)
--- NOTE | 2018-02-20 13:09 | NUR ---
TRIED TO CALL PT'S SISTER DILIA AT [phone], NO CARPENTRY FOREMAN AND NOT ABLE TO LEAVE VOICE MAILBOX
--- NOTE | 2018-02-20 14:02 | NUR ---
FAXED CONCURRENT REVIEW TO [facility] [phone] PHONE GARTH [phone]
--- NOTE | 2018-02-20 14:20 | NUR ---
PT WENT OUT OF ROOM AND WAS ASKING TO TAKE ATIVAN. STATED "I'M FEELING ANXIOUS." TOLD PT THAT IT IS TOO CLOSE FOR NEXT DOSE. PT WENT BACK IN ROOM AND IN BED. CLOSED EYES AND FELL RIGHT AWAY TO SLEEP. NO SIGNS OF DISTRESS. WILL CONTINUE TO MONITOR.
[2018-02-20] MEDS ORDERED: MUPIROCIN 2% OINT 22 GM TUBE TP SCH (14:35)
[2018-02-20] MEDS ORDERED: CHLORHEXADINE GLUC 2% CLOTH TP SCH (15:00)
[2018-02-20] MEDS: CHLORHEXADINE GLUC 2% CLOTH TP SCH (15:35)
[2018-02-20] MEDS: MUPIROCIN CA NASAL 2% 1GM TUBE NS SCH (15:35)
[2018-02-20 16:00] VITALS: BP 100/50
--- NOTE | 2018-02-20 16:16 | NUR ---
CALLED PT'S SISTER DILIA AND TOLD HER THAT PT IS DISCHARGED TODAY. SHE REQUESTED TO SPEAK TO WATER PLANT PUMP OPERATOR BEFORE. SPOKE WITH SS AND SAID WILL CALL HER.
--- NOTE | 2018-02-20 17:07 | NUR ---
PT STEPPED OUT OF ROOM LOOKING FOR FOOD. TOLD PT SHE NEEDED TO STAY IN ROOM AND THAT WE WILL DELIVER DINNER TRAY TO HER. PT WENT BACK IN ROOM. WHEN ASKING PT WHAT IS HER NAME AND BIRTHDAY. ABLE TO STATE NAME AND BIRTHDAY CORRECTLY. ASKED WHERE SHE IS? SHE SAID "[facility]." ASKED WHAT DAY OF THE YEAR IS. STATED "2016." SAID IT WAS FRIDAY BUT TOLD PT TODAY IS FRIDAY. SHE WAS ASKING WHEN SHE IS GOING HOME. TOLD PT WE ARE WORKING ON MAKING ARRANGEMENTS. VERBALIZED UNDERSTANDING.
--- NOTE | 2018-02-20 18:10 | NUR ---
SPOKE WITH PT'S SISTER DILIA. SHE AGREED TO TAKE PT HOME TODAY. GAVE D/C FORMS, INSTRUCTIONS TO PT. PT VERBALIZED UNDERSTANDING AND SIGNED FORMS. PT LEFT WITH ALL PERSONAL BELONGINGS. UX DESIGNER GAVE PT PAMPHLET FOR PSYCH RESOURCES. WILL FOLLOW UP WITH SISTER. REMOVED ID BAND. PT WITH NO IV LINE. PT LEFT UNIT VIA WHEELCHAIR. LEFT IN STABLE CONDITION.
--- NOTE | 2018-02-20 18:33 | NUR ---
Shredder Tender Note: Per Elayne from [facility] , she has different levels of board and cares, some that provide more assistance with ADLs than others. She reported she going to contact patient and/or patient's sister Ubaldo and offer to meet with them in their home and discuss possible placement. Per Elayne, her facilities are able to accommodate patients with mental illness/es. I called and spoke with patient's sister Ubaldo Taylor , she is in agreement with having Neelimarodrigo from [facility] contact her regarding assistance with possible placement for patient. She reported her sister at times needs assistance with medication administration and is independent with all other ADLs. I offered to make a referral for [facility], (A program for individuals who may benefit from home care, home health, and transportation services. This program accepts [employer] and consists of caregivers, nurses, social workers, MD's, and psychiatrists. Ubaldo is in agreement with [facility] referral. I called and spoke with Ky from [facility], he stated someone from their company will contact patient's sister Ubaldo and provide her with information about their program. I provided Ky with Ubaldo's phone number and patient's demographics. I provided patient with an [facility] brochure and also informed her Elayne will contact regarding possible placement. She verbalized understanding.
== END 2018-02-20 18:20 | disposition home or self-care (01) | DRG 73 ==
LOC: MED 18:44 → MTU 21:55
PROVIDERS: ADMIT General Practice; ATTEND General Practice
DX: G90.9 Disorder of the autonomic nervous system, unspecified (principal); G93.40 Encephalopathy, unspecified; F25.0 Schizoaffective disorder, bipolar type; F41.0 Panic disorder [episodic paroxysmal anxiety]; G40.909 Epilepsy, unspecified, not intractable, without status epilepticus; K21.9 Gastro-esophageal reflux disease without esophagitis; I10 Essential (primary) hypertension; E78.5 Hyperlipidemia, unspecified; D64.9 Anemia, unspecified; F32.9 Major depressive disorder, single episode, unspecified; F22 Delusional disorders; F41.1 Generalized anxiety disorder; Z96.651 Presence of right artificial knee joint; K58.9 Irritable bowel syndrome, unspecified; N32.81 Overactive bladder; Z88.0 Allergy status to penicillin; Z79.899 Other long term (current) drug therapy; Z91.19 Patient's noncompliance with other medical treatment and regimen
CPT/HCPCS: 36415; 70450; 71045; 80048; 80053; 80173; 80305; 81003; 82150; 83036; 83690; 83735; 84100; 84134; 84436; 84443; 84484; 85025; 85610; 85730; 87081; 93005; 96360; 99285; C1758; G0480; G0482; J7030; Q0092

== ENCOUNTER 2018-02-22 12:38 | Emergency (ER) | payer MEDICARE, MEDICAID ==
[~2018-02-22] VITALS: Ht 167.6 cm; Wt 68.9 kg
--- NOTE | 2018-02-22 12:39 | NUR ---
PT BIBA ALS
[2018-02-22 12:50] VITALS: BP 112/70
--- NOTE | 2018-02-22 12:58 | NUR ---
PATIENT BROUGHT IN BY PARAMEDICS FROM A RESIDENCE TOOK 6 XANAX 2MG. AT 1200.PATIENT AWAKE ALERT ORIENTED. DENIES SUICIDAL IDEATION. NO DISTRESS
--- NOTE | 2018-02-22 13:01 | NUR ---
PATIENT TO BED #3
--- NOTE | 2018-02-22 13:06 | NUR ---
PT BIBA C/O ATIVAN INGESTION AFTER ARGUMENT WITH SISTER. REPORTS TAKING 6MG OF ATIVAN APPROX 1 HR EXPEDITIONARY FORCE COMBAT SKILLS. ON ARRIVAL PT IS A/OX4 AND NAD NOTED. DENIES CP/ SOB. VSS. GCS 15. PT PLACED ON FULL MONITOR, WILL CONTINUE TO MONITOR CLOSELY.
--- NOTE | 2018-02-22 13:13 | NUR ---
SPOKE TO MARIA DE JESUS FROM POISON CONTROL REGARDING PATIENT INGESTING XANAX 2 MG. X6 TABS. PATIENT WILL BE SLEEPY X2 TO 4 HRS. OBSERVE PATIENT WITHIN THOSE HOURS PER POISON CONTROL
--- NOTE | 2018-02-22 14:40 | NUR ---
URINE ATTEMPTED TO BE OBTAINED VIA BEDPAN X 1, UNSUCCESSFUL. EDMD MADE AWARE.
[2018-02-22 14:49] LABS: BASOPHILS # (AUTO) 0.1 K/uL (0.00-0.22); BASOPHILS % (AUTO) 1.2 % (0.0-2.0); EOSINOPHILS # (AUTO) 0.3 K/uL (0-0.4); EOSINOPHILS % (AUTO) 3.4 % (0.0-4.0); HEMATOCRIT 38.9 % (36-48); HEMOGLOBIN 12.5 g/dL (12.0-16.0); LYMPHOCYTES # (AUTO) 2.4 K/uL (2.5-16.5); LYMPHOCYTES % (AUTO) 30.9 % (20.5-51.1); MEAN CORPUSCULAR HEMOGLOBIN 28 pg (27-31); MEAN CORPUSCULAR HGB CONC 32 g/dL (33-37); MEAN CORPUSCULAR VOLUME 85.8 fL (80-94); MONOCYTES # (AUTO) 0.9 K/uL (0.8-1.0); MONOCYTES % (AUTO) 10.9 % (1.7-9.3); NEUTROPHILS # (AUTO) 4.2 K/uL (1.8-7.7); NEUTROPHILS % (AUTO) 53.6 % (42.2-75.2); PLATELET COUNT (AUTO) 364 K/uL (140-450); RED BLOOD CELL COUNT(AUTO) 4.53 MIL/uL (4.20-5.40); RED CELL DISTRIBUTION WIDTH 14.2 % (11.6-13.7); WHITE BLOOD COUNT (AUTO) 7.9 K/uL (4.8-10.8)
[2018-02-22 14:59] LABS: ANION GAP 10.7 (8-16); CARBON DIOXIDE 26.7 mmol/L (21-32); CHLORIDE 108 mmol/L (98-107); CREATININE 1.1 mg/dL (0.6-1.3); GLUCOSE 98 mg/dL (74-106); POTASSIUM 4.4 mmol/L (3.5-5.1); SODIUM SERUM 141 mmol/L (136-145); UREA NITROGEN, BLOOD 33 mg/dL (7-18)
[2018-02-22 15:07] LABS: ALBUMIN 3.8 g/dL (3.4-5.0); ASPARTATE AMINOTRANSFERASE 73 U/L (15-37); TOTAL BILIRUBIN 0.4 mg/dL (0.0-1.0)
[2018-02-22 15:10] LABS: SALICYLATE < 2.8 mg/dL (2.8-20.0)
[2018-02-22 15:11] LABS: ACETAMINOPHEN < 0.5 ug/ml (10-30)
--- NOTE | 2018-02-22 16:00 | NUR ---
EDMD MADE AWARE NO URINE WAS OBTAINED, EDMD VERBALIZED NO URINE WAS NEEDED.
--- NOTE | 2018-02-22 16:15 | NUR ---
SPOKE WITH MARIA DE JESUS FROM POISON CONTROL, ADVISED TO FOLLOW LIVER FUNCTION BUT THAT PATIENT WOULD PROBABLY NOT DECLINE FURTHER FROM HERE D/Y HX OF ATIVAN USE. GRACIE MADE AWARE.
--- NOTE | 2018-02-22 16:27 | NUR ---
AWAITING D/C PAPERWORK, CALLED SISTER DILIA TO [facility] AT [phone], LINE WAS BUSY
[2018-02-22 16:55] VITALS: BP 130/68
--- NOTE | 2018-02-22 16:55 | NUR ---
Patient discharged with v/s stable. Written and verbal after care instructions given and explained. Patient verbalized understanding. Ambulatory with steady gait. All questions addressed prior to discharge. Advised to follow up with PMD.
--- NOTE | 2018-02-22 17:14 | NUR ---
SPOKE TO PATIENTS SISTER DILIA.,SHE REFUSED HER SISTER GO BACK TO HER HOUSE BECAUSE OF HER DRUG ADDICTION. PATIENT IS ALREADY DISCHARGED. MEGHANA MADE AWARE OF THE SITUATION
--- NOTE | 2018-02-22 17:40 | NUR ---
SPOKE TO STAN FROM [facility] REGARDING PATIENTS HOME SITUATION: [place] STATED TO ADVISE PATIENT SOON SHE GETS HOME TO CALL [place] [employer] : "TO KEEP THE PEACE".PHONE NUMBER PROVIDED TO PATIENT
--- NOTE | 2018-02-22 18:02 | NUR ---
SINCE PATIENT HAVE NO CELL PHONE AND NO GAN TO HER HOUSE AND PAYS RENT TO HER HOUSE, CARMENCITA FROM [place] ADVISE PATIENT TO GO HOME AND IF THE SISTER WILL POLICE, THEN [place] WILL COME OVER AND KEEP THE PEACE. BOBBY CALLED FOR PATIENT.
== END 2018-02-22 16:55 | disposition home or self-care (01) ==
LOC: MED 12:38
DX: T42.4X1A Poisoning by benzodiazepines, accidental (unintentional), initial encounter (principal); Y92.89 Other specified places as the place of occurrence of the external cause; F41.9 Anxiety disorder, unspecified; F32.9 Major depressive disorder, single episode, unspecified; Z79.899 Other long term (current) drug therapy; Z88.0 Allergy status to penicillin
CPT/HCPCS: 36415; 80053; 85025; 93005; 99285; G0480; G0482

== ENCOUNTER 2018-05-25 10:11 | Emergency (ER) | payer OTHER, MEDICAID ==
[~2018-05-25] VITALS: Ht 167.6 cm; Wt 77.1 kg
[~2018-05-25 10:11] MED LIST changes: -LIB5 PO
[2018-05-25 10:12] VITALS: BP 147/78
--- NOTE | 2018-05-25 10:12 | NUR ---
PT BIBA BLS TO BED 3
--- NOTE | 2018-05-25 10:12 | NUR ---
Jackelyn villagomez in ED - 05/25/18 at 1016 by MEDHT PT BIBA BLS TO BED 2
--- NOTE | 2018-05-25 10:24 | NUR ---
72YO F BIBA FOR BILAT KNEE PAIN AND LOST RX OF XANAX, PT STATES THAT SISTER CALL, LEFT KNEE SWELLING NOTED. NO REDNESS AT THIS TIME. PT IS REQUESTING XANAX. PT DENIES ANY SOB, CP ABP FEVER OR COUGH AT THIS TIME. ERMD MADE AWARE. WILL CONTINUE TO MONITOR
--- NOTE | 2018-05-25 10:50 | NUR ---
# 14 FR Urinary catheter inserted utilizing sterile technique. Immediate return of 20 ml YELLOW CLEAR urine noted. Urine sample collected and sent to lab. Pt tolerated procedure WELL .
--- NOTE | 2018-05-25 11:11 | NUR ---
BLANKET PROVIDED TO PT
--- NOTE | 2018-05-25 11:38 | NUR ---
Patient being evaluated by physician at bedside.
[2018-05-25 12:48] VITALS: BP 137/82
--- NOTE | 2018-05-25 12:48 | NUR ---
Patient discharged with v/s stable. Written and verbal after care instructions given and explained. Patient alert, oriented and verbalized understanding of instructions. Wheel Chair Assisted with to car. All questions addressed prior to discharge. ID band removed. Patient advised to follow up with PMD. Rx of ATARAX given. Patient educated on indication of medication including possible reaction and side effects. Opportunity to ask questions provided and answered.
== END 2018-05-25 11:38 | disposition home or self-care (01) ==
LOC: MED 10:11
DX: F41.9 Anxiety disorder, unspecified (principal); Z76.0 Encounter for issue of repeat prescription; Z88.0 Allergy status to penicillin; Z79.899 Other long term (current) drug therapy; Z79.1 Long term (current) use of non-steroidal anti-inflammatories (NSAID)
CPT/HCPCS: 81002; 99284

== ENCOUNTER 2018-06-22 19:01 | Inpatient (IN) | payer OTHER, MEDICAID ==
[~2018-06-22] VITALS: Ht 170.2 cm; Wt 96.2 kg
[2018-06-22] MEDS: NACL 0.9% 1,000 ML IV SCH (00:20)
--- NOTE | 2018-06-22 19:01 | NUR ---
PT BIBA ALS ON 5150 HOLD TO BED 4
[2018-06-22 19:02] VITALS: BP 144/90
--- NOTE | 2018-06-22 19:20 | NUR ---
72 YO F BIBA EMS AFTER REPORTEDLY INGESTING 20-30 2MG XANAX TODAY. UNKNOWN TIME OF INGESTION, SISTER CALLED 911. PT WAS FOUND LYING ON THE FLOOR. GCS 15, ANSWERS QUESTIONS APPROPRIATELY, ACTING VERY LETHARGIC. VITALS ARE STABLE AT THIS TIME, RR EVEN AND UNLABORED AT 18/MIN. BP 144/90, PULSE 64 AND STRONG/EVEN. BLOOD SUGAR 89 IN THER FIELD. [place] [employer] OFFICER SANTIAGO ON SCENE AND IN ER, PLACING PT ON 5150 HOLD AT THIS TIME. PT DENIES SUICIDAL IDEATION AT THIS TIME. ER MD AWARE OF PT STATUS. SUICIDE PRECAUTIONS INITIATED. SAFETY PRECAUTIONS IN PLACE. CONNECTED TO BEDSIDE MONITORING. HX ANXIETY, DEPRESSION, SUICIDAL IDEATION, PSYCH DISORDERS RX XANAX
--- NOTE | 2018-06-22 19:20 | NUR ---
Patient in hospital gown. Personal belongings removed from room and stored . Patient ingested drugs desire to harm self or others. Potentially harmful items removed from room. Under direct observation of Dagoberto CORREA. Will continue to monitor.
--- NOTE | 2018-06-22 19:27 | NUR ---
POISON CONTROL CALLED AT THIS TIME. Addendum: 06/22/18 at 1932 by [email or web address] POISON CONTROL CALLED AT THIS TIME. SPOKE TO RACHAEL FROM THE [place] OFFICE. STATES THAT BEST TO MONITOR FOR 4-6 HOURS AT THIS TIME AND TREAT SYMPTOMS THEY ARRIVE, MONITOR BP AND PROTECT AIRWAY NEEDED, MONITOR FOR RESPIRATORY DEPRESSION. IF ETOH OR OTHER DRUGS PRESENT WHEN UDS COMES BACK, CONTINUE TO MONITOR, CALL BACK IF NEEDED OR CONDITION CHANGES. IT IS NOT INDICATED TO USE FLUMAZENIL AT THIS TIME, STATES IT MAY SEND PT INTO [facility] WITHDRAWAL AND PLACE PT AT RISK FOR SZ. MANAGER SHIPPING AND ER MD NOTIFIED.
[2018-06-22 19:55] LABS: BASOPHILS # (AUTO) 0.1 K/uL (0.00-0.22); BASOPHILS % (AUTO) 0.7 % (0.0-2.0); EOSINOPHILS # (AUTO) 0.2 K/uL (0-0.4); EOSINOPHILS % (AUTO) 2.4 % (0.0-4.0); HEMATOCRIT 36.9 % (36-48); HEMOGLOBIN 12.2 g/dL (12.0-16.0); LYMPHOCYTES # (AUTO) 1.8 K/uL (2.5-16.5); LYMPHOCYTES % (AUTO) 20.5 % (20.5-51.1); MEAN CORPUSCULAR HEMOGLOBIN 27 pg (27-31); MEAN CORPUSCULAR HGB CONC 33 g/dL (33-37); MONOCYTES # (AUTO) 0.9 K/uL (0.8-1.0); MONOCYTES % (AUTO) 9.6 % (1.7-9.3); NEUTROPHILS % (AUTO) 66.8 % (42.2-75.2); PLATELET COUNT (AUTO) 304 K/uL (140-450); RED BLOOD CELL COUNT(AUTO) 4.45 MIL/uL (4.20-5.40); RED CELL DISTRIBUTION WIDTH 15.2 % (11.6-13.7); WHITE BLOOD COUNT (AUTO) 8.9 K/uL (4.8-10.8)
[2018-06-22 20:19] LABS: ALBUMIN 3.3 g/dL (3.4-5.0); ANION GAP 10.3 (8-16); ASPARTATE AMINOTRANSFERASE 10 U/L (15-37); CARBON DIOXIDE 27.3 mmol/L (21-32); CHLORIDE 107 mmol/L (98-107); CREATININE 0.7 mg/dL (0.6-1.3); GLUCOSE 99 mg/dL (74-106); POTASSIUM 3.6 mmol/L (3.5-5.1); SODIUM SERUM 141 mmol/L (136-145); TOTAL BILIRUBIN 0.2 mg/dL (0.0-1.0); UREA NITROGEN, BLOOD 14 mg/dL (7-18)
[2018-06-22 20:20] LABS: BARBITURATE, URINE NEG. ng/ml (NEG <=200); BENZODIAZEPINE, URINE POS. ng/mL (NEG <=200); CANNABINOID, URINE NEG. ng/mL (NEG <=50); COCAINE, URINE NEG. ng/mL (NEG <=300); OPIATE, URINE NEG. ng/mL (NEG <=2000); PHENCYCLIDINE SCREEN,URINE NEG. ng/mL (NEG <=25)
[2018-06-22 20:23] LABS: SALICYLATE < 2.8 mg/dL (2.8-20.0)
[2018-06-22 20:24] LABS: ACETAMINOPHEN < 0.5 ug/ml (10-30)
--- NOTE | 2018-06-22 21:20 | NUR ---
Patient appears to be resting comfortably in bed. Vital Signs within normal limits. Respirations even and unlabored.
--- NOTE | 2018-06-22 22:00 | NUR ---
TERRENCE FROM POISON CONTROL CALLED UP FOR FOLLOW UP, UPDATED WITH V/S, AND LAB RESULTS. TO CONTINUE TO MONITOR.
--- NOTE | 2018-06-22 22:24 | NUR ---
Dr. Obrien evaluating patient at bedside.
--- NOTE | 2018-06-22 22:50 | NUR ---
X-Ray at bedside.
--- NOTE | 2018-06-22 23:20 | NUR ---
Patient appears to be resting comfortably in bed. Vital Signs within normal limits. Respirations even and unlabored.
[2018-06-22] MEDS ORDERED: DOCUSATE SODIUM 100 MG GELCAP PO PRN (23:50)
[2018-06-22] MEDS ORDERED: HYDROcodone/APAP 5/325 MG 1 TAB TAB PO PRN (23:50)
[2018-06-22] MEDS ORDERED: ZOLPIDEM 5 MG TAB PO PRN (23:50)
[2018-06-22] MEDS ORDERED: LORazepam 2 MG/ML VIAL IM/IVP PRN (23:50)
[2018-06-22] MEDS ORDERED: ACETAMINOPHEN 325 MG TAB PO PRN (23:50)
[2018-06-22] MEDS ORDERED: ONDANSETRON 4 MG/2 ML VIAL IM/IVP PRN (23:50)
[2018-06-23] MEDS ORDERED: MECLIZINE 25 MG TAB PO PRN
--- NOTE | 2018-06-23 | NUR ---
Patient will be admitted to care of [facility]. Admited to tele. Will go to room 109b. Belongings list completed. Report to Dagoberto todd .
[2018-06-23 00:15] VITALS: BP 122/68
--- NOTE | 2018-06-23 00:15 | NUR ---
PT ARRIVED TO UNIT VIA GURNEY BY ER NURSE. REPORT GIVEN AT PT BEDSIDE. AOX1-CONFUSED AND LETHARGIC. ON ROOM AIR WITH LEFT AC #20G INSERTED BY PARAMEDICS-INFUSING WELL. SKIN INTACT. VITAL SIGNS TAKEN AND TOLERATED WELL. NO S/S OF RESPIRATORY DISTRESS OR DISCOMFORT NOTED AT THIS TIME. MRSA SWAB COLLECTED. PT TOLERATED WELL. BED IN LOWEST POSITION, BED BREAKS ON, BOTH SIDE RAILS UP, BED ALARM ON, FALL AND SEIZURE PRECAUTIONS IN PLACE. 1:1 SITTER AT BEDSIDE. WILL CONTINUE TO MONITOR.
--- NOTE | 2018-06-23 00:20 | NUR ---
NEW IVF BAG HUNG AND TOLERATED WELL. NO S/S OF RESPIRATORY DISTRESS OR DISCOMFORT NOTED AT THIS TIME. WILL CONTINUE TO MONITOR.
[2018-06-23 00:34] LABS: PROTHROMBIN TIME 9.5 secs (10.8-13.4)
[2018-06-23 00:51] LABS: CHOL/HDL RATIO 2.8 (1-4.5); PHOSPHORUS 2.8 mg/dL (2.5-4.9); THYROID STIMULATING HORMONE 1.84 uIU/mL (0.34-3.74)
--- NOTE | 2018-06-23 02:00 | NUR ---
STRAIGHT CATH ATTEMPTED HOWEVER WAS UNSUCCESSFUL- NO URINE OUTPUT. LEFT AC IV WAS ACCIDENTALLY TAKEN OUT DURING STRAIGHT CATHETER ATTEMPT. NEW IV INSERTED ON RIGHT HAND #24G. PT TOLERATED WELL. NO S/S OF RESPIRATORY DISTRESS OR DISCOMFORT NOTED AT THIS TIME. WILL CONTINUE TO MONITOR.
[2018-06-23 04:00] VITALS: BP 101/73
--- NOTE | 2018-06-23 04:00 | NUR ---
VITAL SIGNS TAKEN AND TOLERATED WELL. NO S/S OF RESPIRATORY DISTRESS OR DISCOMFORT NOTED AT THIS TIME. WILL CONTINUE TO MONITOR.
--- NOTE | 2018-06-23 06:00 | NUR ---
PT RESTING IN BED. NO S/S OF RESPIRATORY DISTRESS OR DISCOMFORT NOTED AT THIS TIME. WILL CONTINUE TO MONITOR.
--- NOTE | 2018-06-23 07:14 | NUR ---
ENDORSED PT CARE TO DAY SHIFT NURSE MAUREEN FOR CONTINUITY OF CARE.
--- NOTE | 2018-06-23 07:15 | NUR ---
RECEIVED SBAR REPORT FROM NIGHT RN AT PT BEDSIDE. PATIENT IS ASLEEP, AWAKENS TO NAME. FOLLOWS COMMANDS, LETHARGIC. DENIES PAIN. IV SITE PATENT AND INTACT. OFFLOADED PRESSURE AREAS. SITTER AT BEDSIDE. PATIENT CONTINUED ON HOLD. NO ACUTE DISTRESS NOTED AT THIS TIME. PATIENT DENIES SUICIDAL IDEATION.
[2018-06-23 07:31] LABS: BASOPHILS # (AUTO) 0.1 K/uL (0.00-0.22); BASOPHILS % (AUTO) 0.7 % (0.0-2.0); EOSINOPHILS # (AUTO) 0.2 K/uL (0-0.4); EOSINOPHILS % (AUTO) 2.6 % (0.0-4.0); HEMATOCRIT 36.8 % (36-48); HEMOGLOBIN 12.2 g/dL (12.0-16.0); LYMPHOCYTES # (AUTO) 1.7 K/uL (2.5-16.5); MEAN CORPUSCULAR HEMOGLOBIN 27 pg (27-31); MEAN CORPUSCULAR HGB CONC 33 g/dL (33-37); MONOCYTES # (AUTO) 0.7 K/uL (0.8-1.0); MONOCYTES % (AUTO) 10.2 % (1.7-9.3); NEUTROPHILS # (AUTO) 4.6 K/uL (1.8-7.7); NEUTROPHILS % (AUTO) 63.5 % (42.2-75.2); PLATELET COUNT (AUTO) 308 K/uL (140-450); RED BLOOD CELL COUNT(AUTO) 4.44 MIL/uL (4.20-5.40); WHITE BLOOD COUNT (AUTO) 7.3 K/uL (4.8-10.8)
[2018-06-23 07:50] LABS: ANION GAP 11.2 (8-16); CARBON DIOXIDE 27.7 mmol/L (21-32); CHLORIDE 109 mmol/L (98-107); CREATININE 0.6 mg/dL (0.6-1.3); GLUCOSE 94 mg/dL (74-106); POTASSIUM 3.9 mmol/L (3.5-5.1); SODIUM SERUM 144 mmol/L (136-145); UREA NITROGEN, BLOOD 12 mg/dL (7-18)
[2018-06-23 07:57] LABS: MAGNESIUM 1.9 mg/dL (1.8-2.4)
[2018-06-23 08:00] VITALS: BP 125/62
--- NOTE | 2018-06-23 08:30 | NUR ---
PATIENT SEEN BY PSYCH AT BEDSIDE, CONTINUE HOLD. NO ACUTE DISTRESS NOTED.
--- NOTE | 2018-06-23 08:32 | NUR ---
PATIENT HAS BEEN SCREENED AND CATEGORIZED LOW NUTRITION RISK DUE TO BEING ON A 5150 HOLD. PATIENT WILL BE SEEN WITHIN 7 DAYS OF ADMISSION. 06/29/[address]
[2018-06-23] MEDS ORDERED: DIVALPROEX 500 MG TABEC PO SCH (09:00)
[2018-06-23] MEDS ORDERED: levETIRAcetam 500 MG TAB PO SCH (09:00)
[2018-06-23] MEDS: SUCRALFATE 1 GM TAB PO SCH ×4 (09:00→21:14)
[2018-06-23] MEDS ORDERED: [UNRECOGNIZED DRUG - OTHER] PO SCH (09:00)
[2018-06-23] MEDS ORDERED: MESALAMINE 1.2 GM PO SCH (09:00)
[2018-06-23] MEDS: levETIRAcetam 500 MG TAB PO SCH ×2 (09:12→21:14)
[2018-06-23] MEDS: lamoTRIgine 25 MG TAB PO SCH ×2 (09:13→21:14)
[2018-06-23] MEDS: VENLAFAXINE XR 75 MG CAPER PO SCH ×2 (09:14→21:14)
[2018-06-23] MEDS: DIVALPROEX 500 MG TABEC PO SCH ×2 (09:14→21:14)
[2018-06-23] MEDS: PANTOPRAZOLE 40 MG TABEC PO SCH (09:14)
--- NOTE | 2018-06-23 10:00 | NUR ---
PATIENT TOLERATED PO DIET. AMBULATORY WITH ASSIST. NO ACUTE DISTRESS NOTED. SITTER AT BEDSIDE.
[2018-06-23 12:00] VITALS: BP 133/71
--- NOTE | 2018-06-23 13:09 | NUR ---
PATIENT SLEEPING. SITTER AT BEDSIDE. NO ACUTE DISTRESS NOTED. CONTINUED WITH CURRENT PLAN OF CARE.
[2018-06-23 16:00] VITALS: BP 120/84
[2018-06-23] MEDS: NACL 0.9% 1,000 ML IV SCH ×2 (16:27→18:31)
--- NOTE | 2018-06-23 17:26 | NUR ---
PATIENT HAS BEEN RESTING IN BED, AWAKENS INTERMITTENTLY. CALM AND COOPERATIVE AT THIS TIME. PATIENT HAS SITTER AT BEDSIDE. DENIES SUICIDAL IDEATION AT THIS TIME. DENIES PAIN. NO ACUTE DISTRESS NOTED.
--- NOTE | 2018-06-23 17:58 | NUR ---
LEFT MESSAGE FOR PATIENT'S SISTER REGARDING HOME MEDS. AWAITING CALLBACK.
--- NOTE | 2018-06-23 19:14 | NUR ---
SBAR REPORT GIVEN TO MADELINE POWER AT PT BEDSIDE. PATIENT SLEEPING, EASILY AWAKENS, NO ACUTE DISTRESS NOTED. Addendum: 06/23/18 at 1928 by Lm Novoa RN NURSE NO LONGER RECEIVING PATIENT, NURSING ASSIGNMENT CHANGED. TO FOLLOW.
--- NOTE | 2018-06-23 19:26 | NUR ---
SBAR REPORT GIVEN TO MADELINE PAGAN AT PT BEDSIDE. NO S/S OF ACUTE DISTRESS NOTED.
--- NOTE | 2018-06-23 19:26 | NUR ---
REPORT GIVEN AT BEDSIDE BY DAY SHIFT NURSE MAUREEN. PT SLEEPING IN BED- EASILY AROUSABLE. ON ROOM AIR WITH IV ON RIGHT HAND #24G RUNNING NS 0.9% AT 60ML/HR-TOLERATING WELL. NO S/S OF RESPIRATORY DISTRESS OR DISCOMFORT NOTED AT THIS TIME. BED IN LOWEST POSITION, BREAKS LOCKED, BOTH SIDE RAILS UP, BED ALARM ON, FALL PRECAUTIONS AND SEIZURE PRECAUTIONS IN PLACE. CONTACT PRECAUTIONS IN PLACE FOR HX: MRSA NARES. BEDSIDE TABLE AND CALL LIGHT ARE WITHIN REACH. WILL CONTINUE TO MONITOR.
[2018-06-23 20:00] VITALS: BP 133/72
--- NOTE | 2018-06-23 20:00 | NUR ---
VITAL SIGNS TAKEN AND TOLERATED WELL. NO S/S OF RESPIRATORY DISTRESS OR DISCOMFORT NOTED AT THIS TIME. WILL CONTINUE TO MONITOR.
[2018-06-23] MEDS ORDERED: PALIPERIDONE 9 MG PO SCH (21:00)
[2018-06-23] MEDS ORDERED: ZOLPIDEM 10 MG TAB PO SCH (21:00)
--- NOTE | 2018-06-23 21:14 | NUR ---
SCHEDULED MEDICATION GIVEN AND TOLERATED WELL. NO S/S OF RESPIRATORY DISTRESS OR DISCOMFORT NOTED AT THIS TIME. WILL CONTINUE TO MONITOR.
--- NOTE | 2018-06-23 21:26 | NUR ---
CALLED SISTER DILIA FONTENOT WITH PHONE NUMBER LISTED ON THE ADMISSION/REGISTRATION SHEET AND LEFT MESSAGE IN REGARDS TO HER SISTER. LEFT MST PHONE NUMBER AND REPEATED IT TWICE. Addendum: 06/23/18 at 2130 by Annia Bond RN WAITING FOR A CALL BACK.
--- NOTE | 2018-06-23 22:55 | NUR ---
PT CONTINUES TO SLEEP IN BED. NO S/S OF RESPIRATORY DISTRESS OR DISCOMFORT NOTED AT THIS TIME. WILL CONTINUE TO MONITOR.
[2018-06-24] VITALS: BP 137/80
--- NOTE | 2018-06-24 | NUR ---
VITAL SIGNS TAKEN AND TOLERATED WELL. NO S/S OF RESPIRATORY DISTRESS OR DISCOMFORT NOTED AT THIS TIME. WILL CONTINUE TO MONITOR.
--- NOTE | 2018-06-24 02:00 | NUR ---
PT CONTINUES TO SLEEP IN BED. NO S/S OF RESPIRATORY DISTRESS OR DISCOMFORT NOTED AT THIS TIME. WILL CONTINUE TO MONITOR.
[2018-06-24 04:00] VITALS: BP 109/69
--- NOTE | 2018-06-24 04:00 | NUR ---
VITAL SIGNS TAKEN AND TOLERATED WELL. NO S/S OF RESPIRATORY DISTRESS OR DISCOMFORT NOTED AT THIS TIME. WILL CONTINUE TO MONITOR.
--- NOTE | 2018-06-24 04:45 | NUR ---
ASSISTED PT TO USE THE TOILET. CHANGED CHUXS AND PT BACK IN BED. PT FELT WEAK IN THE KNEES COMING BACK INTO BED. NO S/S OF RESPIRATORY DISTRESS OR DISCOMFORT NOTED AT THIS TIME. WILL CONTINUE TO MONITOR.
--- NOTE | 2018-06-24 06:00 | NUR ---
PT CONTINUES TO SLEEP. NO S/S OF RESPIRATORY DISTRESS OR DISCOMFORT NOTED AT THIS TIME. WILL CONTINUE TO MONITOR.
--- NOTE | 2018-06-24 07:05 | NUR ---
ENDORSED PT CARE TO DAY SHIFT NURSE VIJAY FOR CONTINUITY OF CARE.
--- NOTE | 2018-06-24 07:06 | NUR ---
ASSUMED CONTINUITY OF CARE. NO SIGNS AND SYMPTOMS OF ACUTE DISTRESS NOTED. INITIAL ASSESSMENT DONE. RE-ORIENTED TO EVENTS AND SURROUNDINGS AND KEEP COMFORTABLE ON BED. KEEP SURROUNDINGS SAFE. EXPLAINED DIAGNOSIS, PLAN OF CARE, PAIN MANAGEMENT TEACHING. VERBALIZED UNDERSTANDING. SEIZURE AND FALL PRECAUTION APPLIED. CLOSELY MONITORED FOR SUICIDAL PREVENTION.
--- NOTE | 2018-06-24 07:46 | NUR ---
DR. DEL RIO CAME AND SPOKE TO PT. AT BEDSIDE.
[2018-06-24 08:00] VITALS: BP 115/73
--- NOTE | 2018-06-24 08:00 | NUR ---
Patient's Plan of Care was discussed and reviewed with GRAFFITI CLEANER: LOLI
[2018-06-24] MEDS: VENLAFAXINE XR 75 MG CAPER PO SCH (08:34)
[2018-06-24] MEDS: DIVALPROEX 500 MG TABEC PO SCH (08:34)
[2018-06-24] MEDS: PANTOPRAZOLE 40 MG TABEC PO SCH (08:35)
[2018-06-24] MEDS: SUCRALFATE 1 GM TAB PO SCH ×2 (08:35→12:45)
[2018-06-24] MEDS: levETIRAcetam 500 MG TAB PO SCH (08:35)
[2018-06-24] MEDS: lamoTRIgine 25 MG TAB PO SCH (08:35)
--- NOTE | 2018-06-24 08:53 | NUR ---
PHYSICAL THERAPIST CAME FOR PT. EVAL AND TREATMENT. PT. CALM AND COOPERATIVE.
[2018-06-24] MEDS ORDERED: MESALAMINE 250 MG CAPER PO SCH (09:00)
[2018-06-24] MEDS ORDERED: ZONISAMIDE 100 MG PO SCH (09:00)
[2018-06-24] MEDS ORDERED: OXYBUTYNIN 5 MG TAB PO SCH (09:00)
[2018-06-24] MEDS ORDERED: FAMOTIDINE 20 MG TAB PO SCH (09:00)
[2018-06-24] MEDS: NACL 0.9% 1,000 ML IV SCH (09:07)
--- NOTE | 2018-06-24 10:13 | NUR ---
CM NOTE RECEIVED ORDER TO TRANSFER TO PSYCH FACILITY; [facility] INQUIRY FAXED TO [facility] [phone] ATTN: CHICHO PH# [phone] AND TO [facility] [phone] ATTN: EVE PH# [phone]
--- NOTE | 2018-06-24 11:22 | NUR ---
ASSISTED PT. TO BATHROOM. TOLERATED WELL. NO SOB, NOTED. KEEP FREE FROM INJURY.
--- NOTE | 2018-06-24 11:58 | NUR ---
CM NOTE PER [facility] OF [facility] PH# [phone] , PATIENT CAN GO TO [address], NUMBER TO CALL FOR REPORT [phone] PER MARIA DE JESUS OF [facility], PATIENT WILL BE PICKED UP AT [address] [facility] SIGNED MEDICARE PCS FORM FAXED TO [facility] [phone] COLEMAN AWARE
[2018-06-24 12:00] VITALS: BP 134/74
--- NOTE | 2018-06-24 12:07 | NUR ---
CALLED [facility] AT AND REPORT GIVEN TO SIVAKUMAR APPLE REGARDING PT. TRANSFER.
--- NOTE | 2018-06-24 12:18 | NUR ---
CALLED PT. SISTER -DILIA FONTENOT AT REGARDING PT. TRANSFER TO [facility]. LEFT MESSAGE AND CALL BACK NUMBER.
[2018-06-24] MEDS ORDERED: LIB5 PO (12:21)
--- NOTE | 2018-06-24 12:36 | NUR ---
CALLED PT. SISTER -DILIA FONTENOT FOR THE SECOND TIME AT REGARDING PT. TRANSFER TO [facility]. LEFT MESSAGE AND CALL BACK NUMBER.
--- NOTE | 2018-06-24 13:36 | NUR ---
[facility] MEDICAL TRANSPORTER CAME AND REPORT GIVEN REGARDING PT. TRANSFER TO [facility].
--- NOTE | 2018-06-24 13:42 | NUR ---
D/C VIA GURNEY WITH [facility] MEDICAL TRANSPORTER. AWAKE, ALERT, AND ORIENTED X2 WITH CONFUSION NOTED. IN STABLE CONDITION. INFORMED CHARGE NURSE ESSENCE APPLE.
== END 2018-06-24 13:42 | DRG 917 ==
LOC: MED 19:01 → MTU 23:49
PROVIDERS: ADMIT General Practice; ATTEND General Practice
DX: T42.4X2A Poisoning by benzodiazepines, intentional self-harm, initial encounter (principal); G92 Toxic encephalopathy; E44.1 Mild protein-calorie malnutrition; F32.9 Major depressive disorder, single episode, unspecified; K21.9 Gastro-esophageal reflux disease without esophagitis; G40.909 Epilepsy, unspecified, not intractable, without status epilepticus; K58.9 Irritable bowel syndrome, unspecified; N32.81 Overactive bladder; Z96.651 Presence of right artificial knee joint; F25.0 Schizoaffective disorder, bipolar type; F40.01 Agoraphobia with panic disorder; F41.1 Generalized anxiety disorder; Y92.009 Unspecified place in unspecified non-institutional (private) residence as the place of occurrence of the external cause; Z68.33 Body mass index [BMI] 33.0-33.9, adult; Z88.0 Allergy status to penicillin; Z79.899 Other long term (current) drug therapy
CPT/HCPCS: 36415; 70450; 71045; 80048; 80053; 80305; 82140; 83036; 83690; 83735; 83880; 84100; 84134; 84443; 84484; 85025; 85610; 85730; 87081; 93880; 97110; 97116; 97530; 97535; 99285; C1758; G0480; G0482; J7030; Q0092

== ENCOUNTER 2019-02-26 16:34 | Inpatient (IN) | payer OTHER, MEDICAID ==
[~2019-02-26] VITALS: Ht 162.6 cm; Wt 78.0 kg
[~2019-02-26 16:34] MED LIST changes: +LIB5 PO
--- NOTE | 2019-02-26 16:34 | NUR ---
Patient BIBA ACLS, transferred to bed 9. RN evaluating patient at bedside.
--- NOTE | 2019-02-26 16:35 | NUR ---
73 Y FEMALE BIBA FOR WITNESSED SYNCOPAL EVENT. PER [facility] PT HAD SYNCOPAL EVENT OUT FRONT OF HER APARTMENT, WITNESSED BY NEIGHBORS, PT LAYED ON GROUND A COUPLE MINUTES BEFORE WAKING UP. PT LETHARGIC, AROUSABLE TO VOICE. PT HOT TO TOUCH-CURRENT TEMP 102.3 RECTALLY. MEMORY INTACT. DENIES HITTING HEAD. BP 190/85. AA0X4. BED IS DOWN, LOCKED, BED RAIL X 1, ERMD TO SEE PT. MEDHX:SEIZURE RX:KEPPRA
--- NOTE | 2019-02-26 16:41 | NUR ---
ICE PACKS AND COOLING MEASURES PLACED ON PATIENT
--- NOTE | 2019-02-26 16:41 | NUR ---
RECTAL TEMPERATURE 102.3. DR UMANZOR NOTIFIED.
[2019-02-26 16:45] VITALS: BP 190/85
[2019-02-26] MEDS ORDERED: NACL 0.9% 1,000 ML IV ONE (16:45)
[2019-02-26] MEDS ORDERED: ACETAMINOPHEN EXTRA STRENGTH 500 MG TAB PO ONE (16:45)
[2019-02-26 17:06] LABS: BASOPHILS # (AUTO) 0.1 K/uL (0.00-0.22); BASOPHILS % (AUTO) 1.5 % (0.0-2.0); EOSINOPHILS # (AUTO) 0.3 K/uL (0-0.4); EOSINOPHILS % (AUTO) 3.6 % (0.0-4.0); HEMATOCRIT 35.1 % (36-48); HEMOGLOBIN 11.6 g/dL (12.0-16.0); LYMPHOCYTES # (AUTO) 2.1 K/uL (2.5-16.5); MEAN CORPUSCULAR HEMOGLOBIN 28 pg (27-31); MEAN CORPUSCULAR HGB CONC 33 g/dL (33-37); MEAN CORPUSCULAR VOLUME 84.5 fL (80-94); MONOCYTES # (AUTO) 0.7 K/uL (0.8-1.0); NEUTROPHILS # (AUTO) 6.3 K/uL (1.8-7.7); NEUTROPHILS % (AUTO) 65.9 % (42.2-75.2); PLATELET COUNT (AUTO) 439 K/uL (140-450); RED BLOOD CELL COUNT(AUTO) 4.15 MIL/uL (4.20-5.40); WHITE BLOOD COUNT (AUTO) 9.5 K/uL (4.8-10.8)
--- NOTE | 2019-02-26 17:08 | NUR ---
UPDATED DILIA, PATIENTS SISTER, WITH PTS CONSENT VIA PHONE.
--- NOTE | 2019-02-26 17:15 | NUR ---
LAB AT BEDSIDE
[2019-02-26] MEDS ORDERED: ALPR2TAB1 PO (17:17)
[2019-02-26 17:20] LABS: APPEARANCE,URINE CLEAR (CLEAR); BILIRUBIN,URINE NEGATIVE (NEGATIVE); BLOOD, URINE TRACE-I (NEGATIVE); COLOR,URINE YELLOW (YELLOW); LEUKOCYTE ESTERASE ,URINE NEGATIVE (NEGATIVE); NITRITE, URINE NEGATIVE (NEGATIVE); PH,URINE 5.5 (5.0-9.0); UGLUCOSE NEGATIVE (NEGATIVE)
[2019-02-26 17:24] LABS: ANION GAP 17.5 (8-16); CARBON DIOXIDE 23.7 mmol/L (21-32); CHLORIDE 106 mmol/L (98-107); CREATININE 0.9 mg/dL (0.6-1.3); GLUCOSE 98 mg/dL (74-106); POTASSIUM 4.2 mmol/L (3.5-5.1); SODIUM SERUM 143 mmol/L (136-145); UREA NITROGEN, BLOOD 13 mg/dL (7-18)
[2019-02-26 17:26] LABS: HYALINE CASTS, URINE 0-10 /LPF (None Seen); RBC,URINE 0-5 /HPF (0-5); WBC,URINE 0-5 /HPF (0-5)
[2019-02-26 17:28] LABS: ALBUMIN 3.5 g/dL (3.4-5.0); ASPARTATE AMINOTRANSFERASE 15 U/L (15-37); TOTAL BILIRUBIN 0.3 mg/dL (0.0-1.0)
[2019-02-26] MEDS ORDERED: ONDANSETRON 4 MG/2 ML VIAL IM/IVP PRN (18:15)
[2019-02-26] MEDS ORDERED: ACETAMINOPHEN 325 MG TAB PO PRN (18:15)
[2019-02-26] MEDS ORDERED: KETOROLAC 30 MG/ML VIAL IVP ONE (18:15)
[2019-02-26] MEDS ORDERED: DOCUSATE SODIUM 100 MG GELCAP PO PRN (18:15)
--- NOTE | 2019-02-26 18:21 | NUR ---
REGULAR DIET ORDERED AT THIS TIME
--- NOTE | 2019-02-26 18:22 | NUR ---
PT AA0X4. MEMORY INTACT. FULL AND COMPLETE SPEECH. GCS 15. EQUAL ARM HATCHERY ATTENDANT, NO WEAKNESS NOTED.
--- NOTE | 2019-02-26 18:37 | NUR ---
PER CHARGE ON MED SURG TELE. NO AVAIL NURSE TO TAKE PATIENT. CALLED CLAY WORKER ROSEMARY. WILL F/U.
--- NOTE | 2019-02-26 18:38 | NUR ---
UPDATED PATIENTS SISTER. STATES SHE WILL CALL FOR FOLLOW UP IN THE MORNING.
[2019-02-26 18:44] LABS: PROTHROMBIN TIME 9.8 secs (10.8-13.4)
[2019-02-26] MEDS ORDERED: KETOROLAC 30 MG/ML VIAL IVP PRN (18:45)
[2019-02-26] MEDS: NACL 0.9% 1,000 ML IV SCH (18:51)
[2019-02-26] MEDS ORDERED: MEDICATION REC. PHARMACY CONS. 1 EA MISC MC PRN (18:55)
[2019-02-26 18:56] LABS: CHOL/HDL RATIO 2.4 (1-4.5); FREE T4 (FREE THYROXINE) 1.28 ng/dL (0.76-1.46); MAGNESIUM 1.7 mg/dL (1.8-2.4); PHOSPHORUS 3.4 mg/dL (2.5-4.9); THYROID STIMULATING HORMONE 1.72 uIU/mL (0.34-3.74)
--- NOTE | 2019-02-26 19:00 | NUR ---
Received endorsement from charge nurse Maria R; patient A/Ox4, able to make needs known, Tongan speaking, on bedrest. DX - dehydration, chief complaint ALOC, syncopal episode x1. Introduced self, updated board, oriented patient to hospital and room environment. No SOB or distress noted, on room air. IV site on left forearm, 20 gauge, intact, saline locked. Skin intact. Bed in the lowest position, call light within reach. Initial assessment done. Will continue to monitor.
--- NOTE | 2019-02-26 19:00 | NUR ---
PT EATING DINNER UPRIGHT IN BED
--- NOTE | 2019-02-26 19:15 | NUR ---
NORMAL SALINE RUNNING AT 165 MLS/HR UPON ADMIT
--- NOTE | 2019-02-26 19:15 | NUR ---
Patient will be admitted to care of DR WYLIE. Admited to TELE. Will go to room 128B. Belongings list completed. Report to BENNY CORREA.
[2019-02-26] MEDS ORDERED: MAGNESIUM OXIDE 400 MG TAB PO ONE (19:45)
[2019-02-26 20:00] VITALS: BP 136/76
[2019-02-26] MEDS: VENLAFAXINE XR 75 MG CAPER PO SCH (20:32)
[2019-02-26] MEDS: ALPRAZolam 0.5 MG TAB PO SCH (20:33)
--- NOTE | 2019-02-26 20:55 | NUR ---
Vitals taken, no distress noted.
[2019-02-26] MEDS ORDERED: ALPRAZolam 0.5 MG TAB PO SCH (21:00)
[2019-02-26] MEDS ORDERED: NON-FORMULARY ITEM (Levetiracetam* (Keppra Xr*) 500 MG) PO SCH (21:00)
--- NOTE | 2019-02-26 21:50 | NUR ---
Due meds given, tolerated well.
[2019-02-26] MEDS ORDERED: LORazepam 1 MG TAB PO PRN (22:25)
[2019-02-26] MEDS ORDERED: LORazepam 2 MG/ML VIAL IVP PRN (22:50)
[2019-02-26] MEDS ORDERED: levETIRAcetam 500 MG TAB PO SCH (23:00)
--- NOTE | 2019-02-26 23:40 | NUR ---
Vitals taken, no distress noted. Patient asleep, visible chest rise and fall noted.
[2019-02-27] VITALS: BP 131/74
[2019-02-27] MEDS: NACL 0.9% 1,000 ML IV SCH ×3 (02:32→18:05)
--- NOTE | 2019-02-27 02:35 | NUR ---
IVF replenished at this time. Patient asleep, eyes closed, visible chest rise and fall noted.
[2019-02-27 04:00] VITALS: BP 157/80
--- NOTE | 2019-02-27 04:22 | NUR ---
Vitals taken; patient asleep, no distress noted.
--- NOTE | 2019-02-27 05:30 | NUR ---
Patient cleaned at this time; chux and linens changed. Tolerated well.
--- NOTE | 2019-02-27 07:20 | NUR ---
Endorsed patient to AM shift RN for continuity of care; patient in stable condition.
--- NOTE | 2019-02-27 07:21 | NUR ---
RECEIVED BEDSIDE REPORT FROM PATTERN KEEPER RN, IDALIA. PATIENT SLEEPING, VISIBLE CHEST RISE, IF INFUSING AT 126 ML/HR, SAFETY PRECAUTIONS IN PLACE. NO SIGNS OF DISTRESS ON RA. WILL CONTINUE TO MONITOR.
[2019-02-27 07:46] LABS: BASOPHILS % (AUTO) 0.3 % (0.0-2.0); EOSINOPHILS # (AUTO) 0.6 K/uL (0-0.4); EOSINOPHILS % (AUTO) 7.5 % (0.0-4.0); HEMATOCRIT 34.3 % (36-48); HEMOGLOBIN 11.4 g/dL (12.0-16.0); LYMPHOCYTES # (AUTO) 2.7 K/uL (2.5-16.5); LYMPHOCYTES % (AUTO) 31.5 % (20.5-51.1); MEAN CORPUSCULAR HEMOGLOBIN 28 pg (27-31); MEAN CORPUSCULAR HGB CONC 33 g/dL (33-37); MEAN CORPUSCULAR VOLUME 85.2 fL (80-94); MONOCYTES # (AUTO) 0.9 K/uL (0.8-1.0); MONOCYTES % (AUTO) 10.3 % (1.7-9.3); NEUTROPHILS # (AUTO) 4.3 K/uL (1.8-7.7); NEUTROPHILS % (AUTO) 50.4 % (42.2-75.2); PLATELET COUNT (AUTO) 360 K/uL (140-450); RED BLOOD CELL COUNT(AUTO) 4.02 MIL/uL (4.20-5.40); RED CELL DISTRIBUTION WIDTH 14.4 % (11.6-13.7); WHITE BLOOD COUNT (AUTO) 8.5 K/uL (4.8-10.8)
[2019-02-27 08:00] VITALS: BP 143/80
[2019-02-27 08:04] LABS: ANION GAP 13.9 (8-16); CARBON DIOXIDE 24.4 mmol/L (21-32); CHLORIDE 109 mmol/L (98-107); CREATININE 0.7 mg/dL (0.6-1.3); GLUCOSE 95 mg/dL (74-106); POTASSIUM 4.3 mmol/L (3.5-5.1); SODIUM SERUM 143 mmol/L (136-145); UREA NITROGEN, BLOOD 10 mg/dL (7-18)
[2019-02-27 08:06] LABS: PHOSPHORUS 3.2 mg/dL (2.5-4.9)
[2019-02-27] MEDS ORDERED: [UNRECOGNIZED DRUG - OTHER] PO SCH (09:00)
[2019-02-27] MEDS: ALPRAZolam 0.5 MG TAB PO SCH ×2 (09:27→20:47)
[2019-02-27] MEDS: PANTOPRAZOLE 40 MG TABEC PO SCH (09:27)
[2019-02-27] MEDS: VENLAFAXINE XR 75 MG CAPER PO SCH ×2 (09:28→20:47)
--- NOTE | 2019-02-27 09:28 | NUR ---
ADMINISTERED SCHEDULED MEDICATIONS. PATIENT TOLERATED WELL. CLEANED AND REPOSITIONED PATIENT. PATIENT ABLE TO REPOSITION SELF. SAFETY PRECAUTIONS IN PLACE. WILL CONTINUE TO MONITOR.
[2019-02-27] MEDS ORDERED: levETIRAcetam 500 MG TAB PO SCH (10:30)
--- NOTE | 2019-02-27 11:06 | NUR ---
ADMINISTERED NEW BAG OF NORMAL SALINE IV FLUID. IV SITE FLUSHING WELL. WILL CONTINUE TO MONITOR.
--- NOTE | 2019-02-27 11:45 | NUR ---
CLEANED AND REPOSITIONED PATIENT. PATIENT TOLERATED WELL. WILL CONTINUE TO MONITOR.
[2019-02-27 12:00] VITALS: BP 138/74
--- NOTE | 2019-02-27 12:45 | NUR ---
PATIENT SITTING UP IN BED EATING LUNCH. NO SIGNS OF DISTRESS ON RA. WILL CONTINUE TO MONITOR.
[2019-02-27] MEDS ORDERED: OXYBUTYNIN 5 MG TAB PO SCH (13:00)
--- NOTE | 2019-02-27 15:30 | NUR ---
AUTO MECHANIC SUPERVISOR GAVE PATIENT BED BATH AND WASHED PATIENT HAIR WHICH WAS HEAVILY SOILED FROM [facility]. PATIENT IS FRESH AND CLEAN.
[2019-02-27 16:00] VITALS: BP 124/77
--- NOTE | 2019-02-27 16:45 | NUR ---
IV SITE INFILTRATED, DISCONTINUE 20 GAUGE IV CATHETER FROM LEFT FORE ARM, TIP IN TACT. PATIENT TOLERATED WELL. WILL ENDORSE TO CHARGE NURSE FOR RE-INSERTION.
--- NOTE | 2019-02-27 17:21 | NUR ---
GAVE TORADOL IV FOR 6/10 PAIN IN RIGHT GREAT TOE.
--- NOTE | 2019-02-27 17:35 | NUR ---
CHARGE NURSE INSERTED 22 IV CATHETER IN LEFT HAND, FLUSHING WELL WILL ADMINISTER IV MEDICATION.
--- NOTE | 2019-02-27 19:10 | NUR ---
GAVE BEDSIDE REPORT TO TONGUE BINDER RN. PATIENT IN STABLE CONDITION ON RA.
--- NOTE | 2019-02-27 19:11 | NUR ---
Received endorsement from Am shift RN; patient A/Ox4, able to make needs known, Cymraes speaking, on bedrest. Introduced self, updated board. No SOB or distress noted, on room air. IV site on left hand, 22 gauge, intact, running IVF at 126mL/hr. Skin intact, but noted with excoriation on sacral area. Bed in the lowest position, call light within reach. Initial assessment done. Will continue to monitor. Addendum: 02/28/19 at 0107 by Ammon Jesus RN Podiatry came and bandaged right foot. Additional orders given. Inspected bandage, dry and intact.
[2019-02-27 20:00] VITALS: BP 135/72
--- NOTE | 2019-02-27 20:03 | NUR ---
Vitals taken, no distress noted.
[2019-02-27] MEDS: ZOLPIDEM 10 MG TAB PO SCH (20:47)
[2019-02-27] MEDS: risperiDONE 1 MG TAB PO SCH (20:48)
[2019-02-27] MEDS: levETIRAcetam 500 MG TAB PO SCH (20:48)
--- NOTE | 2019-02-27 21:50 | NUR ---
Due meds given, tolerated well.
--- NOTE | 2019-02-27 23:48 | NUR ---
Vitals taken; patient asleep, visible chest rise and fall noted.
[2019-02-28] VITALS: BP 119/57
[2019-02-28] MEDS: NACL 0.9% 1,000 ML IV SCH ×3 (00:09→17:56)
--- NOTE | 2019-02-28 01:55 | NUR ---
Rounds done; patient asleep, eyes closed, visible chest rise and fall noted.
[2019-02-28 04:00] VITALS: BP 147/82
--- NOTE | 2019-02-28 04:00 | NUR ---
Vitals taken, no distress noted.
--- NOTE | 2019-02-28 05:12 | NUR ---
Checks made; patient awake, looking through her purse. No distress noted.
--- NOTE | 2019-02-28 07:13 | NUR ---
Endorsed patient to AM shift RN for continuity of care; patient in stable condition.
--- NOTE | 2019-02-28 07:14 | NUR ---
RECEIVED REPORT FROM CUSTODIAL MANAGER RN, PATIENT AWAKE AND RESTING IN BED. NO C/O PAIN OR SIGNS OF DISTRESS AT THIS TIME. ALL NEEDS MET. SAFETY PRECAUTIONS IN PLACE. WILL CONTINUE TO MONITOR.
[2019-02-28 08:00] VITALS: BP 128/68
[2019-02-28 08:05] LABS: ANION GAP 14.1 (8-16); CARBON DIOXIDE 22.8 mmol/L (21-32); CHLORIDE 110 mmol/L (98-107); CREATININE 0.7 mg/dL (0.6-1.3); GLUCOSE 103 mg/dL (74-106); POTASSIUM 3.9 mmol/L (3.5-5.1); SODIUM SERUM 143 mmol/L (136-145); UREA NITROGEN, BLOOD 13 mg/dL (7-18)
[2019-02-28 08:12] LABS: BASOPHILS # (AUTO) 0.1 K/uL (0.00-0.22); BASOPHILS % (AUTO) 0.9 % (0.0-2.0); EOSINOPHILS # (AUTO) 0.6 K/uL (0-0.4); HEMATOCRIT 30.8 % (36-48); HEMOGLOBIN 10.2 g/dL (12.0-16.0); LYMPHOCYTES % (AUTO) 21.2 % (20.5-51.1); MEAN CORPUSCULAR HEMOGLOBIN 28 pg (27-31); MEAN CORPUSCULAR HGB CONC 33 g/dL (33-37); MEAN CORPUSCULAR VOLUME 84.7 fL (80-94); MONOCYTES # (AUTO) 0.8 K/uL (0.8-1.0); NEUTROPHILS # (AUTO) 5.8 K/uL (1.8-7.7); NEUTROPHILS % (AUTO) 62.9 % (42.2-75.2); PLATELET COUNT (AUTO) 327 K/uL (140-450); RED BLOOD CELL COUNT(AUTO) 3.64 MIL/uL (4.20-5.40); RED CELL DISTRIBUTION WIDTH 14.3 % (11.6-13.7); WHITE BLOOD COUNT (AUTO) 9.2 K/uL (4.8-10.8)
[2019-02-28] MEDS: OXYBUTYNIN 5 MG TAB PO SCH (08:25)
[2019-02-28] MEDS: VENLAFAXINE XR 75 MG CAPER PO SCH ×2 (08:25→21:03)
[2019-02-28] MEDS: ALPRAZolam 0.5 MG TAB PO SCH ×2 (08:25→21:03)
[2019-02-28] MEDS: levETIRAcetam 500 MG TAB PO SCH ×2 (08:25→21:02)
[2019-02-28] MEDS: PANTOPRAZOLE 40 MG TABEC PO SCH (08:25)
--- NOTE | 2019-02-28 08:28 | NUR ---
ADMINISTERED SCHEDULED MEDICATIONS. PATIENT TOLERATED WELL. SITTING UP IN BED. NO DISTRESS NOTED ON RA.
--- NOTE | 2019-02-28 10:25 | NUR ---
ADMINISTERED NORMAL SALINE IV FLUID, IV SITE PATENT AND CLEAR. PATIENT IN NO DISTRESS, RECEIVING BED BATH BY FILM BOOKER. WILL CONTINUE TO MONITOR.
--- NOTE | 2019-02-28 11:40 | NUR ---
PROVIDED PATIENT MEGHANA CRACKERS AND MILK PER PATIENT REQUEST, PATIENT VERY APPRECIATIVE. SAFETY PRECAUTIONS IN PLACE. CALL LIGHT IN REACH. WILL CONTINUE TO MONITOR.
[2019-02-28 12:05] LABS: MAGNESIUM 1.9 mg/dL (1.8-2.4); PHOSPHORUS 3.2 mg/dL (2.5-4.9)
--- NOTE | 2019-02-28 13:00 | NUR ---
ASSESS, CLEANED, AND DRESSES WOUND ON RIGHT GREAT TOE. PATIENT STATED PAIN WAS A 2/10 BUT WAS TOLERABLE AND DID NOT WANT MEDICATION.
--- NOTE | 2019-02-28 15:42 | NUR ---
PATIENT RESTING IN BED, REMINDED PATIENT TO ROTATE EVERY 2 HOURS TO AVOID SKIN BREAKDOWN. PATIENT VERBALIZED UNDERSTANDING.
[2019-02-28 16:00] VITALS: BP 127/67
--- NOTE | 2019-02-28 17:45 | NUR ---
PATIENT SITTING UP IN BED. NO SIGNS OF DISTRESS ON RA. SAFETY PRECAUTIONS IN PLACE. WILL CONTINUE TO MONITOR.
--- NOTE | 2019-02-28 19:20 | NUR ---
GAVE BEDSIDE REPORT TO DRUM BARKER OPERATOR RNKURT. PATIENT IN STABLE CONDITION ON RA.
--- NOTE | 2019-02-28 19:21 | NUR ---
RECEIVED REPORT FROM AM SHIFT RN, JALEN, FOR PATIENT'S CONTINUITY OF CARE. PATIENT IS LYING DOWN IN BED, AWAKE, WATCHING TV, "FEELING A LITTLE UNCOMFORTABLE DUE TO HEAT". PATIENT IS ON ROOM AIR, HAS LEFT HAND 22G IV WITH NORMAL SALINE RUNNING AT 126 ML/HR. PATIENT DENIES ANY PAIN AT THIS TIME. BED IS ON LOW POSITION, SIDE RAILS ARE UP, AND CALL LIGHT IS WITHIN REACH. WILL MONITOR PATIENT THROUGHOUT SHIFT.
[2019-02-28] MEDS: ZOLPIDEM 10 MG TAB PO SCH (21:02)
[2019-02-28] MEDS: risperiDONE 1 MG TAB PO SCH (21:02)
--- NOTE | 2019-02-28 21:03 | NUR ---
ADMINISTERED PO MEDICATIONS ORDERED. PATIENT TOLERATED THEM WELL. WILL CONTINUE TO MONITOR PATIENT.
[2019-03-01] VITALS: BP 124/62
[2019-03-01] MEDS: NACL 0.9% 1,000 ML IV SCH ×3 (00:26→17:35)
--- NOTE | 2019-03-01 00:26 | NUR ---
PATIENT ASLEEP, VITAL SIGNS CHECKED AND CHARTED. HUNG NEW IV NORMAL SALINE ORDERED. PATIENT DENIES ANY PAIN OR DISCOMFORT WHEN ASKED. WILL CONTINUE TO MONITOR PATIENT.
--- NOTE | 2019-03-01 02:31 | NUR ---
MADE ROUNDS. PATIENT LYING DOWN, ASLEEP, WITH NO SIGNS OF DISTRESS. WILL CONTINUE TO MONITOR PATIENT.
--- NOTE | 2019-03-01 03:40 | NUR ---
PATIENT LYING DOWN, ASLEEP, WITH NO SIGNS OF DISTRESS. PATIENT SOILED, HELPED ROVING MACHINE OPERATOR TO CHANGE PATIENT. PATIENT TOLERATED IT WELL. PATIENT DENIES ANY PAIN OR DISCOMFORT AT THIS TIME. WILL CONTINUE TO MONITOR PATIENT.
--- NOTE | 2019-03-01 05:18 | NUR ---
MADE ROUNDS. PATIENT STILL ASLEEP, WITH NO SIGNS OF DISTRESS. WILL CONTINUE TO MONITOR PATIENT.
[2019-03-01 06:35] LABS: ANION GAP 11.8 (8-16); CARBON DIOXIDE 25.8 mmol/L (21-32); CHLORIDE 109 mmol/L (98-107); CREATININE 0.8 mg/dL (0.6-1.3); GLUCOSE 96 mg/dL (74-106); MAGNESIUM 1.8 mg/dL (1.8-2.4); PHOSPHORUS 3.5 mg/dL (2.5-4.9); POTASSIUM 4.6 mmol/L (3.5-5.1); SODIUM SERUM 142 mmol/L (136-145); UREA NITROGEN, BLOOD 17 mg/dL (7-18)
[2019-03-01 06:49] LABS: BASOPHILS # (AUTO) 0.1 K/uL (0.00-0.22); BASOPHILS % (AUTO) 1.5 % (0.0-2.0); EOSINOPHILS # (AUTO) 0.6 K/uL (0-0.4); HEMATOCRIT 33.4 % (36-48); LYMPHOCYTES # (AUTO) 2.3 K/uL (2.5-16.5); LYMPHOCYTES % (AUTO) 25.7 % (20.5-51.1); MEAN CORPUSCULAR HEMOGLOBIN 28 pg (27-31); MEAN CORPUSCULAR HGB CONC 33 g/dL (33-37); MEAN CORPUSCULAR VOLUME 85.4 fL (80-94); MONOCYTES # (AUTO) 0.8 K/uL (0.8-1.0); MONOCYTES % (AUTO) 9.1 % (1.7-9.3); NEUTROPHILS % (AUTO) 56.7 % (42.2-75.2); PLATELET COUNT (AUTO) 332 K/uL (140-450); RED BLOOD CELL COUNT(AUTO) 3.91 MIL/uL (4.20-5.40); RED CELL DISTRIBUTION WIDTH 14.1 % (11.6-13.7); WHITE BLOOD COUNT (AUTO) 8.9 K/uL (4.8-10.8)
--- NOTE | 2019-03-01 06:55 | NUR ---
ASSISTED PATIENT TO THE RESTROOM TO VOID. PATIENT TOLERATED ACTIVITY WELL.
--- NOTE | 2019-03-01 07:05 | NUR ---
ENDORSED PATIENT TO AM SHIFT RN, KALEN, FOR CONTINUITY OF CARE. PATIENT IS LYING DOWN IN BED, WATCHING TV, DENIES ANY PAIN AT THIS TIME. BED IS IN LOW POSITION, SIDE RAILS ARE UP, AND CALL LIGHT WITHIN REACH.
--- NOTE | 2019-03-01 07:06 | NUR ---
RECEIVED ENDORSEMENT FROM PROSTHODONTIST/EDUCATOR NURSE. PATIENT IS AAOX3, SOUTH KOREAN SPEAKING. RESPIRATIONS ARE EVEN AND UNLABORED ON ROOM AIR. PATIENT DENIES ANY PAIN AT THIS TIME. LEFT HAND 22G IV INTACT, PATENT, AND INFUSING IVF. PLAN OF CARE WAS REVIEWED WITH PATIENT. PATIENT VERBALIZED UNDERSTANDING. SAFETY MEASURES IN PLACE, CALL LIGHT WITHIN REACH.
[2019-03-01 08:00] VITALS: BP 140/72
[2019-03-01] MEDS: PANTOPRAZOLE 40 MG TABEC PO SCH (08:43)
[2019-03-01] MEDS: OXYBUTYNIN 5 MG TAB PO SCH (08:44)
[2019-03-01] MEDS: ALPRAZolam 0.5 MG TAB PO SCH ×2 (08:44→22:00)
[2019-03-01] MEDS: levETIRAcetam 500 MG TAB PO SCH ×2 (08:44→22:00)
[2019-03-01] MEDS: VENLAFAXINE XR 75 MG CAPER PO SCH ×2 (08:45→22:00)
--- NOTE | 2019-03-01 08:45 | NUR ---
ADMINISTERED SCHEDULED MEDICATIONS. PATIENT TOLERATED WELL. NO OTHER NEEDS AT THIS TIME. WILL CONTINUE TO MONITOR.
--- NOTE | 2019-03-01 10:36 | NUR ---
PATIENT SLEEPING, EASILY AROUSABLE. PATIENT DENIES ANY PAIN. NO OTHER NEEDS AT THIS TIME. WILL CONTINUE TO MONITOR.
--- NOTE | 2019-03-01 12:30 | NUR ---
PATIENT STATED THAT SHE DID NOT LIKE HER LUNCH. REQUESTED TURKEY SANDWICH FROM KITCHEN. NO OTHER NEEDS AT THIS TIME. WILL CONTINUE TO MONITOR.
[2019-03-01] MEDS: cefTRIAXone 2,000 MG in DEXTROSE 5% 100 ML IV SCH (14:12)
--- NOTE | 2019-03-01 14:20 | NUR ---
ADMINISTERED SCHEDULED MEDICATIONS. PATIENT TOLERATED WELL. PATIENT DENIES ANY PAIN AT THIS TIME. NO OTHER NEEDS AT THIS TIME.
--- NOTE | 2019-03-01 15:10 | NUR ---
PATIENT REMOVED IV. IV WAS RESTARTED ON LEFT AC 22G. RESUMED IV FLUIDS. NO PAIN OR OTHER NEEDS AT THIS TIME.
[2019-03-01 16:00] VITALS: BP 144/78
--- NOTE | 2019-03-01 17:20 | NUR ---
PATIENT RESTING. PATIENT DENIES ANY PAIN, NO OTHER NEEDS AT THIS TIME.
[2019-03-01] MEDS: KETOROLAC 15 MG/ML VIAL IVP SCH (18:21)
--- NOTE | 2019-03-01 18:49 | NUR ---
* ST NOTE * Pt seen at bedside. Pt alert, cooperative and engaged throughout session, reporting no c/o pain at this time. Bedside dysphagia and oral mechanism exams completed. See evaluation report for further details. Pt tolerating 5/5 alternating PO trials of regular solid chicken, rice & vegetables as well as 4/4 alternating PO trials of thin liquid soup via a spoon or juice via a straw, all w/o s/s of aspiration or choking. pt also reporting no difficulty masticating or swallowing current PO diet consistency. Pt education completed re: aspiration precautions and safe swallow compensatory strategies pt could utilize to aid w/swallow function, w/pt verbalizing understanding and agreement w/clinician's recommendations. It is thus recommended pt's PO diet consistency be changed to REGULAR SOLIDS W/THIN LIQUIDS for all meals, w/aspiration precautions in place, w/pt agreeable. No further ST follow up recommended at this time. Pt and caregiver/Nsg Moira education completed re: results of evaluation; benefits of abiding by aspiration precautions; and prognosis for improvement; w/pt and caregiver/Nsg Moira verbalizing understanding and agreement w/clinician's recommendations. Recommend: - PO DIET CONSISTENCY OF REGULAR SOLIDS W/THIN LIQUIDS for all meals - WHOLE PILL MEDICATION ADMINISTRATION - MAINTAIN ASPIRATION PRECAUTIONS DURING PT'S PO INTAKE - Pt can self-feed - CUE/REMIND PT PRIOR TO PO INTAKE TO SIT UP AT AN 80-90 DEGREE ANGLE; EAT/DRINK SLOWLY; TAKE SMALL BITES/SIPS; AND TO ALTERNATE BTWN SOLIDS & LIQUIDS No further ST follow up recommended at this time. NOMS Level 1
--- NOTE | 2019-03-01 19:39 | NUR ---
ENDORSED TO CARDIAC EXERCISE SPECIALIST NURSE FOR CONTINUITY OF CARE. PATIENT IS STABLE AT THIS TIME.
--- NOTE | 2019-03-01 19:40 | NUR ---
RECEIVED REPORT FROM AM NURSE. PT AWAKE, ALERT AND ORIENTED BUT FORGETFUL. PT BREATHING UNLABORED ON ROOM AIR. LEFT AC 22G INTACT AND INFUSING WELL. DRESSING ON RIGHT FOOT DRY AND INTACT. FALL PRECAUTIONS IN PLACE. CALL LIGHT WITHIN REACH.
[2019-03-01] MEDS: ZOLPIDEM 10 MG TAB PO SCH (22:00)
--- NOTE | 2019-03-01 22:00 | NUR ---
MEDICATION GIVEN. PT TOLERATED WELL.
[2019-03-01] MEDS: risperiDONE 1 MG TAB PO SCH (22:01)
[2019-03-02] VITALS: BP 144/71
--- NOTE | 2019-03-02 | NUR ---
VITALS TAKEN. PT SLEEPING BUT AWAKEN EASILY. PT REFUSED ADMINISTRATION OF TORADOL. PT STATES SHES "NOT IN PAIN."
[2019-03-02] MEDS: NACL 0.9% 1,000 ML IV SCH ×2 (00:52→08:44)
--- NOTE | 2019-03-02 02:00 | NUR ---
ROUNDED ON PT. PT SLEEPING, BREATHING UNLABORED. CALL LIGHT AT BEDSIDE.
--- NOTE | 2019-03-02 05:00 | NUR ---
PT CLEANED AND REPOSITIONED FOR COMFORT. PT RIGHT FOOT WOUND CLEANED AND DRESSED. NO C/O PAIN WITH WOUND DRESSING.
[2019-03-02] MEDS: KETOROLAC 15 MG/ML VIAL IVP SCH ×3 (06:00→11:52)
[2019-03-02 06:07] LABS: FOLIC ACID 8.3 ng/mL (>3.0)
[2019-03-02 06:17] LABS: CHLORIDE 108 mmol/L (98-107); CREATININE 0.8 mg/dL (0.6-1.3); GLUCOSE 98 mg/dL (74-106); SODIUM SERUM 141 mmol/L (136-145); UREA NITROGEN, BLOOD 17 mg/dL (7-18)
[2019-03-02 06:29] LABS: MAGNESIUM 1.7 mg/dL (1.8-2.4); PHOSPHORUS 3.3 mg/dL (2.5-4.9)
--- NOTE | 2019-03-02 07:25 | NUR ---
ENDORSED TO AM NURSE. PT IN STABLE CONDITION.
--- NOTE | 2019-03-02 07:30 | NUR ---
RECEIVED BED SIDE REPORT FROM ASSISTANT REFINERY OPERATOR RN NOVEMBER. PT A/O X4, SKIN INTACT, S/P I&D ON RIGHT FOOT. HAS BOOT ON. COMPLAINS OF NO PAIN, ON RA IN NO RESPIRATORY DISTRESS. ON SEIZURE PRECAUTIONS, SIDE RAILS PADDED. BED ALARM ON.VS STABLE. PT TO WORK WITH PATIENT TODAY. WILL CONTINUE TO MONITOR
[2019-03-02 08:00] VITALS: BP 131/76
[2019-03-02 08:18] LABS: BASOPHILS # (AUTO) 0.1 K/uL (0.00-0.22); BASOPHILS % (AUTO) 0.9 % (0.0-2.0); EOSINOPHILS # (AUTO) 0.7 K/uL (0-0.4); HEMATOCRIT 34.1 % (36-48); HEMOGLOBIN 11.3 g/dL (12.0-16.0); LYMPHOCYTES # (AUTO) 1.8 K/uL (2.5-16.5); LYMPHOCYTES % (AUTO) 15.9 % (20.5-51.1); MEAN CORPUSCULAR HEMOGLOBIN 28 pg (27-31); MEAN CORPUSCULAR HGB CONC 33 g/dL (33-37); MEAN CORPUSCULAR VOLUME 85.1 fL (80-94); MONOCYTES # (AUTO) 0.8 K/uL (0.8-1.0); NEUTROPHILS # (AUTO) 7.8 K/uL (1.8-7.7); NEUTROPHILS % (AUTO) 70.2 % (42.2-75.2); PLATELET COUNT (AUTO) 330 K/uL (140-450); RED BLOOD CELL COUNT(AUTO) 4.01 MIL/uL (4.20-5.40); RED CELL DISTRIBUTION WIDTH 13.9 % (11.6-13.7); WHITE BLOOD COUNT (AUTO) 11.1 K/uL (4.8-10.8)
[2019-03-02] MEDS: PANTOPRAZOLE 40 MG TABEC PO SCH (08:41)
[2019-03-02] MEDS: OXYBUTYNIN 5 MG TAB PO SCH (08:41)
[2019-03-02] MEDS: DOCUSATE SODIUM 100 MG GELCAP PO SCH (08:42)
[2019-03-02] MEDS: VENLAFAXINE XR 75 MG CAPER PO SCH ×2 (08:42→21:39)
[2019-03-02] MEDS: LACTOBACILLUS RHAMNOSUS GG 1 EACH CAP PO SCH (08:42)
[2019-03-02] MEDS: levETIRAcetam 500 MG TAB PO SCH ×2 (08:42→21:40)
[2019-03-02] MEDS: ALPRAZolam 0.5 MG TAB PO SCH ×2 (08:42→21:39)
--- NOTE | 2019-03-02 10:30 | NUR ---
SPOKE WITH [facility] RAIL CAR REPAIRMAN TO F/U WITH PT. PT REQUESTED TO TALK TO A LEAD IOS DEVELOPER AND REFUSES TO GO TO A SPECIFIC SNP IN [place], HOWEVER PT DOES NOT REMEMBER THE NAME.
[2019-03-02] MEDS ORDERED: KETOROLAC 15 MG/ML VIAL IVP PRN (12:45)
--- NOTE | 2019-03-02 12:59 | NUR ---
NOTIFIED RESIDENT ABOUT PT STATING THAT SHE HAS STOMACH BURNING WHENEVER SHE TAKES ASPIRIN. PT REFUSED TO TAKE ASPIRIN
[2019-03-02] MEDS: cefTRIAXone 2,000 MG in DEXTROSE 5% 100 ML IV SCH (13:01)
--- NOTE | 2019-03-02 13:25 | NUR ---
PERFORMED WOUND CARE ON PT'S RIGHT TOE. BLANCHABLE PINK TISSUE INSIDE. MINIMAL SEROSANGUINEOUS DRAINAGE. NO PAIN ASSOCIATED WITH WOUND. NO SIGNS OF INJURY. CIRCULATION INTACT. APPLIED XEROFORM, 4X4 GAUZE AND KERLIX WITH TAPE. WILL CONTINUE TO MONITOR
[2019-03-02] MEDS ORDERED: ASPIRIN 81 MG TAB.CHEW PO SCH (13:30)
--- NOTE | 2019-03-02 15:43 | NUR ---
ELISHA contacted Federico from [facility] [phone]. Federico confirmed that patient will be in bed 209C and patient's accepting physician will be Dr. Howell. Federico stated that they are prepared for patient to be discharged 03/03/2019. ELISHA/MIRTA will follow up as needed.
--- NOTE | 2019-03-02 16:10 | NUR ---
DC FLUIDS. PUT PT ON SALINE LOCK
[2019-03-02 16:29] VITALS: BP 131/57
--- NOTE | 2019-03-02 19:54 | NUR ---
GAVE BED SIDE REPORT TO HEALTH ADMINISTRATION TEACHER RN. PT IN STABLE CONDITION.
--- NOTE | 2019-03-02 19:55 | NUR ---
RECEIVED BEDSIDE REPORT FROM DAY SHIFT NURSE. NO SOB NOTED, BREATHING EVEN AND UNLABORED. IV SITE ON LAC, 22G, SL, PATENT, INTACT, ASYMPTOMATIC. PUPIL REACTIVE TO LIGHT, SIZE 3MM, ABLE TO MOVE TO 6 DIFFERENT SIDES. HEARING ON BOTH EAR FINE. SQUEEZE BOTH HAND EQUALLY, PUSH BOTH FEET EQUALLY. BOARD UPDATED, BED IN LOW POSITION, CALL LIGHT WITHIN REACH. WILL CONTINUE TO MONITOR.
[2019-03-02] MEDS ORDERED: SIMVASTATIN 10 MG TAB PO SCH (21:00)
[2019-03-02] MEDS: risperiDONE 1 MG TAB PO SCH (21:39)
[2019-03-02] MEDS: ZOLPIDEM 10 MG TAB PO SCH (21:40)
--- NOTE | 2019-03-02 21:40 | NUR ---
GIVEN AMBIEN, EFFEXOR, KEPPRA, RISPERDAL, XANAX, AND ZOCOR MD ORDERED. PT TOLERATE WELL.
--- NOTE | 2019-03-02 23:55 | NUR ---
VS CHECKED, WITHIN PT'S BASELINE. BED IN LOW POSITION. CALL LIGHT WITHIN REACH.
[2019-03-03] VITALS: BP 154/77
--- NOTE | 2019-03-03 02:05 | NUR ---
PT SLEEPING IN BED COMFORTABLY. NO ACUTE DISTRESS NOTED. WILL CONTINUE TO MONITOR.
--- NOTE | 2019-03-03 04:30 | NUR ---
PT SLEEPING IN BED COMFORTABLY. WILL CONTINUE TO MONITOR.
--- NOTE | 2019-03-03 06:15 | NUR ---
PT SLEEPING IN BED. NO ACUTE DISTRESS NOTED. WILL CONTINUE TO MONITOR.
[2019-03-03 06:33] LABS: ANION GAP 13.1 (8-16); CHLORIDE 106 mmol/L (98-107); CREATININE 0.7 mg/dL (0.6-1.3); GLUCOSE 100 mg/dL (74-106); POTASSIUM 4.1 mmol/L (3.5-5.1); SODIUM SERUM 140 mmol/L (136-145); UREA NITROGEN, BLOOD 17 mg/dL (7-18)
[2019-03-03 06:38] LABS: MAGNESIUM 1.8 mg/dL (1.8-2.4); PHOSPHORUS 3.7 mg/dL (2.5-4.9)
[2019-03-03 07:29] LABS: BASOPHILS # (AUTO) 0.2 K/uL (0.00-0.22); BASOPHILS % (AUTO) 1.9 % (0.0-2.0); EOSINOPHILS # (AUTO) 0.7 K/uL (0-0.4); EOSINOPHILS % (AUTO) 8.2 % (0.0-4.0); HEMATOCRIT 34.4 % (36-48); HEMOGLOBIN 11.5 g/dL (12.0-16.0); LYMPHOCYTES # (AUTO) 1.4 K/uL (2.5-16.5); LYMPHOCYTES % (AUTO) 16.7 % (20.5-51.1); MEAN CORPUSCULAR HEMOGLOBIN 28 pg (27-31); MEAN CORPUSCULAR HGB CONC 33 g/dL (33-37); MEAN CORPUSCULAR VOLUME 83.8 fL (80-94); MONOCYTES # (AUTO) 0.7 K/uL (0.8-1.0); MONOCYTES % (AUTO) 8.9 % (1.7-9.3); NEUTROPHILS # (AUTO) 5.2 K/uL (1.8-7.7); NEUTROPHILS % (AUTO) 64.3 % (42.2-75.2); PLATELET COUNT (AUTO) 346 K/uL (140-450); RED CELL DISTRIBUTION WIDTH 13.9 % (11.6-13.7); WHITE BLOOD COUNT (AUTO) 8.1 K/uL (4.8-10.8)
--- NOTE | 2019-03-03 07:30 | NUR ---
ENDORSED PT TO CHARGE NURSE. PT IN STABLE CONDITION. Addendum: 03/03/19 at 0746 by Luís Johnson RN ENDORSED PT TO DAY SHIFT NURSELIZ. PT IN STABLE CONDITION.
--- NOTE | 2019-03-03 07:49 | NUR ---
RECEIVED BED SIDE REPORT FROM CUSTOM SHOEMAKER. PT STABLE, A/O X4, SALINE LOCK LEFT 22AC. PT TO BE DISCHARGED TO [facility] TODAY. WILL FOLLOW UP WITH HOSPITALITY SPECIALIST
[2019-03-03] MEDS ORDERED: ASPIRIN 81 MG TAB.CHEW PO SCH (09:00)
[2019-03-03] MEDS: DOCUSATE SODIUM 100 MG GELCAP PO SCH (09:05)
[2019-03-03] MEDS: PANTOPRAZOLE 40 MG TABEC PO SCH (09:05)
[2019-03-03] MEDS: VENLAFAXINE XR 75 MG CAPER PO SCH (09:05)
[2019-03-03] MEDS: ALPRAZolam 0.5 MG TAB PO SCH (09:05)
[2019-03-03] MEDS: levETIRAcetam 500 MG TAB PO SCH (09:06)
[2019-03-03] MEDS: OXYBUTYNIN 5 MG TAB PO SCH (09:06)
[2019-03-03] MEDS: LACTOBACILLUS RHAMNOSUS GG 1 EACH CAP PO SCH (09:06)
--- NOTE | 2019-03-03 09:56 | NUR ---
CALLED [facility] TELLO, TRANSPORTATION NEEDS TO BE SET UP. WILL WAIT FOR CALL.
[2019-03-03 09:57] VITALS: BP 119/67
[2019-03-03] MEDS ORDERED: LACT10CA PO (10:03)
[2019-03-03] MEDS ORDERED: SULF-59 PO (10:03)
[2019-03-03] MEDS ORDERED: SIMV10TA6 PO (10:03)
--- NOTE | 2019-03-03 10:08 | NUR ---
CALLED PT'S SISTER DILIA FONTENOT TO NOTIFY HER THAT PT IS TO BE TRANSFERRED TO [facility] TODAY. SISTER WAS UPSET THAT PT IS GOING THERE. REASSURED HER THAT SHE MAY COME IN AND TALK TO THE DOCTOR. CALLED SW BECAUSE PT REQUESTED TO TALK TO PT. BETZ[facility] SAID HE IS ON HIS WAY
--- NOTE | 2019-03-03 10:21 | NUR ---
ELISHA called Federico from [facility] [phone]. Federico stated that he faxed clinical information to insurance and will call nursing station once ETA is available. ELISHA/MIRTA will follow up as needed.
[2019-03-03] MEDS: cefTRIAXone 2,000 MG in DEXTROSE 5% 100 ML IV SCH (12:11)
--- NOTE | 2019-03-03 12:31 | NUR ---
DID WOUND DRESSING CHANGE. TISSUE STILL PINK AND BLANCHABLE. TISSUE AROUND WOUND BED IS DRY. NO PAIN. CLEANED WITH NS, APPLIED XEROFOR, GAUZE AND REINFORCED WITH KERLIX AND TAPE. PT DRESSING IN PINK GOWN AND BLANKET. GAVE ROCEPHIN BEFORE PT IS DC.
--- NOTE | 2019-03-03 13:40 | NUR ---
Dietary Server Note: I received a call from Construction Grip Margot from [facility] , fax , she stated she oversees patients with [facility]. She requested physical therapy notes. I faxed physical therapy notes to her. She stated she will let me know if snf placement is approved or denied. She explained to me at this time patient's inpatient admission has been denied and observation stay has been approved. She told me that our attending physician has option to speak with their MD, Dr.Davis Catherine Sue and appeal denial for inpatient admission. She reported it is best for to call as soon as possible, I notified of my conversation with Construction Grip Margot and provided him with phone number.
--- NOTE | 2019-03-03 14:40 | NUR ---
TALKED TO LUIZA. SHE SAID THERE IS AN INSURANCE PROBLEM. PT IN GOWN AND BLANKET. ON RA IN NO RESP DISTRESS AND IN NO PAIN. WILL CONTINUE TO MONITOR
--- NOTE | 2019-03-03 14:51 | NUR ---
Mobile Pet Groomer Note: Per Fancy Sewer Margot from [facility] , fax , snf placement has been denied at this time because according to physical therapy notes patient ambulated 53 feet. She told me they will authorize home health services for physical therapy. Margot stated she will arrange home health services once 's home health order is faxed to her. I notified of my conversation with Margot. I faxed 's home health order to Margot.
--- NOTE | 2019-03-03 15:13 | NUR ---
Banking Manager Note: I faxed new updated MD's home health order to Import Export Manager Margot from [facility] , fax .
--- NOTE | 2019-03-03 16:54 | NUR ---
Analytical Lead Note: I met with patient at bedside to discuss discharge plan. I explained to her that her health insurance plan has denied MD's request for her to be transfer to a snf and their reason for denial. I informed her with health insurance plan has authorize home health services. Patient verbalized understanding and stated she does not know exact address of board and care where she currently lives at. She told me she has been living there for 5 [address] [facility] [place] She would like to go to her sister's home ([facility]) upon discharge to sweet pickle maker some of her belongings and from there she is planning to contact the national van owner operator of [facility] board and care, Miki and request for Miki to pick her up and take her to board and care. I called and spoke with Miki. Per Miki, he will sweet pickle maker patient from her sister's home ([facility]) and take her to board and care today. He provided me with board and care's address, [address] [place] [address]. I was informed by patient's nurse Ren patient's sister Ubaldo wanted to speak with me. I called and spoke with Ubaldo Taylor . She requested an update on patient's discharge plan, I provided her with a detailed update on patient's discharge plan, including an explanation of health insurance plan's denial of snf placement. She sounded upset and reported she did not understanding why patient's health insurance plan had denied MD's recommendation for snf placement. I provided [employer]ea with a detailed lengthy explanation of health insurance's denial of snf placement multiple times. However, Ubaldo kept insisting patient should be transferred to a snf upon discharge. She expressed that she did not want to speak with me anymore and hung up. I went back to patient's room and explained to patient, her sister had concerns about her not being transferred to a snf. Patient was slightly tearful and apologized on Ubaldo's behalf. She told me "I'm sorry she put you through this, she has a lot going on and she thinks she is my mother". She told me she understood perfectly fine why her health insurance had not authorized for snf placement and was in agreement with going to [facility] and care with home health services. Patient stated she did not have any questions nor concerns at this time.
[2019-03-03 18:13] VITALS: BP 154/76
--- NOTE | 2019-03-03 18:35 | NUR ---
ANGEL CAB BROCHURE GIVEN TO PATIENT. PT TO GO TO SISTER'S HOUSE. GAVE DC INSTRUCTIONS TO PT, GAVE RX MEDS, EDUCATED ON S/E AND PT VERBALIZED UNDERSTANDING. PERSONAL BELONGINGS TAKEN WITH PT. WILL CONTINUE TO MONITOR
== END 2019-03-03 18:30 | disposition home health service (06) | DRG 41 ==
LOC: MED 16:34 → MMU 18:14
PROVIDERS: ADMIT General Practice; ATTEND General Practice
PROC: 0JBQ0ZZ Excision of Right Foot Subcutaneous Tissue and Fascia, Open Approach (ICD-10-PCS; principal; 2019-02-27)
DX: G90.8 Other disorders of autonomic nervous system (principal); R65.10 Systemic inflammatory response syndrome (SIRS) of non-infectious origin without acute organ dysfunction; L97.519 Non-pressure chronic ulcer of other part of right foot with unspecified severity; E86.0 Dehydration; E83.42 Hypomagnesemia; Z88.5 Allergy status to narcotic agent; Z88.0 Allergy status to penicillin; F20.9 Schizophrenia, unspecified; G40.909 Epilepsy, unspecified, not intractable, without status epilepticus; F32.9 Major depressive disorder, single episode, unspecified; F41.1 Generalized anxiety disorder; G47.00 Insomnia, unspecified; K21.9 Gastro-esophageal reflux disease without esophagitis; Z90.711 Acquired absence of uterus with remaining cervical stump; D64.9 Anemia, unspecified; M13.862 Other specified arthritis, left knee; I73.9 Peripheral vascular disease, unspecified
CPT/HCPCS: 36415; 70450; 71045; 73562; 73630; 80048; 80053; 81001; 82140; 82150; 82550; 82553; 82607; 82728; 82746; 83036; 83540; 83605; 83615; 83690; 83735; 83880; 84100; 84439; 84443; 84484; 85025; 85045; 85610; 85730; 87040; 87081; 87086; 92610; 93005; 93925; 93970; 96360; 97110; 97116; 97161-GP; 97530; 99285; C1758; J0696; J1885; J2060; J7030; J7060; Q0092

== ENCOUNTER 2019-08-12 15:04 | Emergency (ER) | payer OTHER, MEDICAID ==
[~2019-08-12] VITALS: Ht 167.6 cm; Wt 68.0 kg
[2019-08-12 15:04] VITALS: BP 152/87
[~2019-08-12 15:04] MED LIST changes: +ALPR2TAB1 PO; -DIVA250T PO; +LACT10CA PO; -LAM25 PO; -LIB5 PO; -MESA1.2T PO; -ONDA8TAB13 PO; -RANI150C PO; +SIMV10TA92 PO; -SUCR1TAB35 PO; +SULF-59 PO; -ZONI100C5 PO; -[UNRECOGNIZED DRUG - CODE] PO; -[UNRECOGNIZED DRUG - CODE] PO
--- NOTE | 2019-08-12 15:05 | NUR ---
PT BIBA TO ER BED 12
--- NOTE | 2019-08-12 15:10 | NUR ---
73 YEAR OLD FEMALE COMPLAINS OF 8/10 DULL ABDOMEN PAIN X4 HOURS. PATIENT STATES THAT PAIN STARTED AFTER TAKING KEPRA MEDICATION. PATIENT STATES NAUSEA AND UPPER AND LOWER ABDOMEN PAIN. PATIENT DENIES VOMITTING AND DIARRHEA. BOWEL SOUNDS ACTIVEX4, TENDER ON PALPATION ON GENERALIZED ABDOMEN. PATIENT ALERT AND ORIENTED, BREATHING EVEN AND UNLABORED, SKIN WARM AND DRY. BED IN LOWEST POSITION, LOCKED, BED RAIL UPX1.
--- NOTE | 2019-08-12 16:19 | NUR ---
PT TAKEN TO XRAY VIA WHEELCHAIR
[2019-08-12 16:32] LABS: BASOPHILS # (AUTO) 0.1 K/uL (0.00-0.22); EOSINOPHILS # (AUTO) 0.3 K/uL (0-0.4); EOSINOPHILS % (AUTO) 2.9 % (0.0-4.0); HEMATOCRIT 37.6 % (36-48); HEMOGLOBIN 12.4 g/dL (12.0-16.0); LYMPHOCYTES # (AUTO) 2.3 K/uL (2.5-16.5); LYMPHOCYTES % (AUTO) 21.2 % (20.5-51.1); MEAN CORPUSCULAR HEMOGLOBIN 28 pg (27-31); MEAN CORPUSCULAR HGB CONC 33 g/dL (33-37); MONOCYTES # (AUTO) 0.9 K/uL (0.8-1.0); MONOCYTES % (AUTO) 7.9 % (1.7-9.3); NEUTROPHILS # (AUTO) 7.3 K/uL (1.8-7.7); PLATELET COUNT (AUTO) 370 K/uL (140-450); RED BLOOD CELL COUNT(AUTO) 4.48 MIL/uL (4.20-5.40); RED CELL DISTRIBUTION WIDTH 16.8 % (11.6-13.7); WHITE BLOOD COUNT (AUTO) 10.9 K/uL (4.8-10.8)
--- NOTE | 2019-08-12 16:32 | NUR ---
Patient returned from XRAY. RN re-evaluating patient at bedside.
[2019-08-12 17:57] LABS: APPEARANCE,URINE CLEAR (CLEAR); BILIRUBIN,URINE NEGATIVE (NEGATIVE); BLOOD, URINE NEGATIVE (NEGATIVE); COLOR,URINE YELLOW (YELLOW); LEUKOCYTE ESTERASE ,URINE TRACE (NEGATIVE); NITRITE, URINE NEGATIVE (NEGATIVE); PH,URINE 5.5 (5.0-9.0); UGLUCOSE NEGATIVE (NEGATIVE)
--- NOTE | 2019-08-12 18:09 | NUR ---
Patient requesting to leave, pt sitting in chair B not in bed 12. Dr. Thomas made aware.
[2019-08-12 18:11] LABS: RBC,URINE 0 /HPF (0-5); WBC,URINE 0-5 /HPF (0-5)
--- NOTE | 2019-08-12 18:20 | NUR ---
PT LAYING IN BED, PT AGREED TO STAY. VS NOTED. REPORTS 5/10 TOLERABLE PAIN AT THIS TIME. ALL NEEDS MET.
--- NOTE | 2019-08-12 18:20 | NUR ---
DR MOSER AT BEDSIDE.
[2019-08-12 18:28] LABS: ANION GAP 14.7 (8-16); CARBON DIOXIDE 24.4 mmol/L (21-32); CHLORIDE 105 mmol/L (98-107); CREATININE 0.7 mg/dL (0.6-1.3); GLUCOSE 100 mg/dL (74-106); POTASSIUM 4.1 mmol/L (3.5-5.1); SODIUM SERUM 140 mmol/L (136-145); UREA NITROGEN, BLOOD 10 mg/dL (7-18)
[2019-08-12 18:34] LABS: ALBUMIN 3.6 g/dL (3.4-5.0); ASPARTATE AMINOTRANSFERASE 11 U/L (15-37); LIPASE 255 U/L (73-393); TOTAL BILIRUBIN 0.3 mg/dL (0.0-1.0)
[2019-08-12 18:50] VITALS: BP 155/74
--- NOTE | 2019-08-12 18:50 | NUR ---
Patient discharged with v/s stable. Written and verbal after care instructions given and explained. Patient alert, oriented and verbalized understanding of instructions. Ambulatory with steady gait. All questions addressed prior to discharge. ID band removed. Patient advised to follow up with PMD. Rx of KEFLEX, MIRALAX given. Patient educated on indication of medication including possible reaction and side effects. Opportunity to ask questions provided and answered.
== END 2019-08-12 18:50 | disposition home or self-care (01) ==
LOC: MED 15:04
DX: N39.0 Urinary tract infection, site not specified (principal); K59.00 Constipation, unspecified; K21.9 Gastro-esophageal reflux disease without esophagitis; F31.9 Bipolar disorder, unspecified; F41.9 Anxiety disorder, unspecified; E78.00 Pure hypercholesterolemia, unspecified; Z79.899 Other long term (current) drug therapy; Z88.0 Allergy status to penicillin; Z88.5 Allergy status to narcotic agent
CPT/HCPCS: 36415; 74021; 80053; 81001; 83690; 84703; 85025; 99284

== ENCOUNTER 2019-09-07 09:24 | Emergency (ER) | payer OTHER, MEDICAID ==
[~2019-09-07] VITALS: Ht 167.6 cm; Wt 67.1 kg
[2019-09-07 09:43] VITALS: BP 157/97
--- NOTE | 2019-09-07 10:29 | NUR ---
73/F TO ED WITH A REQUEST FOR NEW SEIZURE MEDICATION, STATING "I HAVENT TAKEN MY KEPPRA IN 3 DAYS BECUASE IT MAKES ME SICK" PT REPORTING THAT LAST SEIZURE WAS THIS MORNING. PT IS ALERT TO NAME, BIRTHDAY, PLACE, EVENT. GCS 15. PT ALSO C/O L SIDED KNEE PAIN SECONDARY TO FALL. NO DEFORMITY NOTED. IN BED FOR MSE.
[2019-09-07] MEDS ORDERED: ACETAMINOPHEN 325 MG TAB PO ONE (10:35)
[2019-09-07] MEDS ORDERED: levETIRAcetam 1,000 MG in NACL 0.9% 100 ML IV ONE (10:35)
[2019-09-07] MEDS ORDERED: levETIRAcetam 100 MG/ML VIAL IV ONE (11:12)
--- NOTE | 2019-09-07 11:25 | NUR ---
RECEIVED REPORT FROM MADELINE ROSADO. TRANSFER OF CARE AT THIS TIME
--- NOTE | 2019-09-07 12:00 | NUR ---
PT STATES DECREASE IN PAIN. 0/10 LEG PAIN AT THIS TIME
--- NOTE | 2019-09-07 12:44 | NUR ---
Patient discharged with v/s stable. Written and verbal after care instructions given and explained. Patient alert, oriented and verbalized understanding of instructions. Ambulatory with steady gait. All questions addressed prior to discharge. ID band removed. Patient advised to follow up with PMD. Rx of KEPPRA AND ZOFRAN given. Patient educated on indication of medication including possible reaction and side effects. Opportunity to ask questions provided and answered.
[2019-09-07 12:45] VITALS: BP 157/97
== END 2019-09-07 12:45 | disposition home or self-care (01) ==
LOC: MED 09:24
DX: S83.92XA Sprain of unspecified site of left knee, initial encounter (principal); G40.89 Other seizures; R03.0 Elevated blood-pressure reading, without diagnosis of hypertension; K21.9 Gastro-esophageal reflux disease without esophagitis; Z90.710 Acquired absence of both cervix and uterus; Z91.14 Patient's other noncompliance with medication regimen; Z88.0 Allergy status to penicillin; Z88.5 Allergy status to narcotic agent; Z79.899 Other long term (current) drug therapy; Z96.651 Presence of right artificial knee joint
CPT/HCPCS: 73562; 96365; 99283; J1953; Q0092

== ENCOUNTER 2019-09-07 18:18 | Inpatient (IN) | payer OTHER, MEDICAID ==
[~2019-09-07] VITALS: Ht 167.6 cm; Wt 67.1 kg
[2019-09-07 18:40] VITALS: BP 156/88
--- NOTE | 2019-09-07 21:13 | NUR ---
[facility] aware of patien. Will assist with placement if and when needed. Please fax packet to [phone] for assistance
--- NOTE | 2019-09-08 00:43 | NUR ---
PT TAKEN TO CHAIR B
[2019-09-08] MEDS ORDERED: ZIPRASIDONE MESYLATE 20 MG/ML VIAL IM ONE (00:45)
[2019-09-08] MEDS ORDERED: diphenhydrAMINE 50 MG/ML VIAL IM ONE (00:50)
[2019-09-08] MEDS ORDERED: LORazepam 2 MG/ML VIAL IM ONE (00:50)
[2019-09-08] MEDS ORDERED: WATER STERILE 10 ML MC ONE (01:42)
--- NOTE | 2019-09-08 01:44 | NUR ---
Note elikoby in EDM - 09/08/19 at 0438 by UCHE 73 YEAR OLD FEMALE COMPLAINS OF AUDITORY HALLUCINATIONS AT TRIAGE. PATIENT WAS MEDICATED PRIOR TO ARRIVAL AT BEDSIDE. PATIENT STATES SHE CAN NOT REMEMBER WHY SHE IS HERE BUT DOES NOT HAVE ANY COMPLAINTS. PATIENT AOX3 (NAME, , YEAR), GCS 12 (E3,V4,M5) PATIENT DENIES CHEST PAIN, HEADACHE, SOB, N/V/D. PATIENT LETHARGIC. PATIENT AWAKE, BREATHING EVEN AND UNLABORED, SKIN WARM AND DRY. BED IN LOWEST POSITION, LOCKED, BED RAIL UPX1.
[2019-09-08 01:53] LABS: BARBITURATE, URINE NEG. ng/ml (NEG <=200); BENZODIAZEPINE, URINE NEG. ng/mL (NEG <=200); CANNABINOID, URINE NEG. ng/mL (NEG <=50); COCAINE, URINE NEG. ng/mL (NEG <=300); OPIATE, URINE NEG. ng/mL (NEG <=2000); PHENCYCLIDINE SCREEN,URINE NEG. ng/mL (NEG <=25)
[2019-09-08 02:03] LABS: ALBUMIN 4.5 g/dL (3.4-5.0); ASPARTATE AMINOTRANSFERASE 22 U/L (15-37); CARBON DIOXIDE 28.3 mmol/L (21-32); CHLORIDE 107 mmol/L (98-107); GLUCOSE 113 mg/dL (74-106); POTASSIUM 4.3 mmol/L (3.5-5.1); SODIUM SERUM 147 mmol/L (136-145); TOTAL BILIRUBIN 0.5 mg/dL (0.0-1.0); UREA NITROGEN, BLOOD 37 mg/dL (7-18)
[2019-09-08 02:12] LABS: ACETAMINOPHEN < 0.5 ug/ml (10-30); SALICYLATE < 2.8 mg/dL (2.8-20.0)
--- NOTE | 2019-09-08 02:56 | NUR ---
PT MOVED TO BED 6
--- NOTE | 2019-09-08 03:25 | NUR ---
73 YEAR OLD FEMALE COMPLAINS OF AUDITORY HALLUCINATIONS AT TRIAGE. PATIENT WAS MEDICATED PRIOR TO ARRIVAL AT BEDSIDE. PATIENT STATES SHE CAN NOT REMEMBER WHY SHE IS HERE BUT DOES NOT HAVE ANY COMPLAINTS. PATIENT AOX3 (NAME, , YEAR), GCS 12 (E3,V4,M5) PATIENT DENIES CHEST PAIN, HEADACHE, SOB, N/V/D. PATIENT LETHARGIC. PATIENT AWAKE, BREATHING EVEN AND UNLABORED, SKIN WARM AND DRY. BED IN LOWEST POSITION, LOCKED, BED RAIL UPX1.
--- NOTE | 2019-09-08 03:42 | NUR ---
PATIENT RESTING WITH EYES CLOSED, BREATHING EVEN AND UNLABORED
--- NOTE | 2019-09-08 04:30 | NUR ---
PATIENT RESTING WITH EYES CLOSED, BREATHING EVEN AND UNLABORED
[2019-09-08] MEDS ORDERED: ONDANSETRON 4 MG/2 ML VIAL IM/IVP PRN (05:10)
[2019-09-08] MEDS ORDERED: ACETAMINOPHEN 325 MG TAB PO PRN (05:10)
[2019-09-08] MEDS ORDERED: DOCUSATE SODIUM 100 MG GELCAP PO PRN (05:10)
--- NOTE | 2019-09-08 05:30 | NUR ---
PATIENT IS AWAKE AND ALERT, HAS BEEN TRYING TO GET OUT OF BED, PATIENT HAS BEEN BROUGHT BACK INTO BED.
--- NOTE | 2019-09-08 06:30 | NUR ---
PATIENT CONTINUES TO TRY TO GET OUT OF BED, HAS BEEN BROUGHT BACK UP INTO BED AND INSTRUCTED THE IMPORTANCE OF AVOIDING FALLS.
[2019-09-08 06:39] LABS: HEMATOCRIT 40.4 % (36-48); HEMOGLOBIN 12.9 g/dL (12.0-16.0); MEAN CORPUSCULAR HEMOGLOBIN 28 pg (27-31); MEAN CORPUSCULAR HGB CONC 32 g/dL (33-37); MEAN CORPUSCULAR VOLUME 87.4 fL (80-94); PLATELET COUNT (AUTO) 442 K/uL (140-450); RED BLOOD CELL COUNT(AUTO) 4.63 MIL/uL (4.20-5.40); RED CELL DISTRIBUTION WIDTH 16.2 % (11.6-13.7); WHITE BLOOD COUNT (AUTO) 15.6 K/uL (4.8-10.8)
[2019-09-08 06:39] LABS: APPEARANCE,URINE CLEAR (CLEAR); BILIRUBIN,URINE NEGATIVE (NEGATIVE); BLOOD, URINE NEGATIVE (NEGATIVE); COLOR,URINE YELLOW (YELLOW); LEUKOCYTE ESTERASE ,URINE TRACE (NEGATIVE); NITRITE, URINE NEGATIVE (NEGATIVE); UGLUCOSE NEGATIVE (NEGATIVE)
[2019-09-08 06:49] LABS: RBC,URINE 0 /HPF (0-5)
[2019-09-08 06:50] LABS: CALCIUM OXALATE CRYSTALS,UR 0-10 /HPF (None Seen); WBC,URINE 0-5 /HPF (0-5)
--- NOTE | 2019-09-08 07:26 | NUR ---
REPORT GIVEN TO CHONG CORREA, TRANSFER OF CARE AT THIS TIME
[2019-09-08 07:34] LABS: LYMPHOCYTES % (MANUAL) 20 % (20-46); MONOCYTES % (MANUAL) 10 % (5-12)
--- NOTE | 2019-09-08 08:15 | NUR ---
RECEIVED PT FROM ED NURSE AND WAS GIVEN REPORT. PT RESTING IN BED. ABLE TO MAKE NEEDS KNOWN. RESPIRATIONS EVEN AND UNLABORED WITH NO SOB OR RESPIRATORY DISTRESS. SKIN WARM AND DRY TO TOUCH. LEFT AC 20G IS CLEAN, DRY, AND INTACT. MRSA SWAB PERFORMED AND PATIENT PUT ON TELE MONITOR. ID BAND AND ALLERGY BAND ATTACHED. SAFETY MEASURES IN PLACE. WILL CONTINUE TO MONITOR.
--- NOTE | 2019-09-08 08:16 | NUR ---
Stable VSS Has been admitted report to Hannah CORREA on Tele Ambulated to Placed in bed Nurse aware
[2019-09-08 08:32] LABS: THYROID STIMULATING HORMONE 2.28 uIU/mL (0.34-3.74)
[2019-09-08 09:12] LABS: PROTHROMBIN TIME 9.9 secs (10.8-13.4)
[2019-09-08 09:18] LABS: CHOL/HDL RATIO 3.3 (1-4.5); HDL CHOLESTEROL 58 mg/dL (40-60); LDL (CALC) 120 mg/dL (60-100); MAGNESIUM 1.3 mg/dL (1.8-2.4); TRIGLYCERIDES 58 mg/dL (30-150)
[2019-09-08 10:30] VITALS: BP 117/65
--- NOTE | 2019-09-08 10:30 | NUR ---
HOURLY ROUNDING. PT RESTING IN BED. ABLE TO MAKE NEEDS KNOWN. RESPIRATIONS EVEN AND UNLABORED WITH NO SOB OR RESPIRATORY DISTRESS. SKIN WARM AND DRY TO TOUCH. SAFETY MEASURES IN PLACE. WILL CONTINUE TO MONITOR.
[2019-09-08] MEDS: NACL 0.9% 1,000 ML IV SCH ×2 (11:17→21:45)
--- NOTE | 2019-09-08 11:17 | NUR ---
ADMINISTERED MEDICATION PRESCRIBED PER MD ORDER. PT TOLERATED WELL. MEDICATION EDUCATION PERFORMED. PT VERBALIZED UNDERSTANDING.
--- NOTE | 2019-09-08 15:58 | NUR ---
PATIENT HAS BEEN SCREENED AND CATEGORIZED LOW NUTRITION RISK. PATIENT WILL BE SEEN WITHIN 7 DAYS OF ADMISSION. 09/14/[address]
[2019-09-08 16:00] VITALS: BP 134/76
[2019-09-08] MEDS ORDERED: MAG SULF 2000 MG/WATER PREMIX 50 ML IV ONE (17:25)
[2019-09-08] MEDS ORDERED: LORazepam 2 MG/ML VIAL IM/IVP PRN (17:25)
[2019-09-08] MEDS ORDERED: MECLIZINE 25 MG TAB PO PRN (17:25)
--- NOTE | 2019-09-08 18:06 | NUR ---
ADMINISTERED MEDICATION PRESCRIBED PER MD ORDER. PT TOLERATED WELL. MEDICATION EDUCATION PERFORMED. PT VERBALIZED UNDERSTANDING.
--- NOTE | 2019-09-08 19:04 | NUR ---
ADMINISTERED MEDICATION PRESCRIBED PER MD ORDER. PT TOLERATED WELL. MEDICATION EDUCATION PERFORMED. PT VERBALIZED UNDERSTANDING.
--- NOTE | 2019-09-08 19:25 | NUR ---
ENDORSED TO BROOM WORKER NURSE. PT RESTING IN BED. ABLE TO MAKE NEEDS KNOWN. RESPIRATIONS EVEN AND UNLABORED WITH NO SOB OR RESPIRATORY DISTRESS. SKIN WARM AND DRY TO TOUCH. SAFETY MEASURES IN PLACE. WILL CONTINUE TO MONITOR.
--- NOTE | 2019-09-08 19:27 | NUR ---
RECEIVED BEDSIDE REPORT FROM AM SHIFT NURSE. PATIENT IS SITTING ON A CHAIR AT BEDSIDE TALKING TO ROOM MATE. NO SOB OR DISTRESS NOTED. IV ACCESS LEFT AC 20 GAUGE, PATENT, INTACT AND INFUSING WELL. INITIAL ASSESSMENT DONE. BED IN LOW, SAFETY PRECAUTIONS IN PLACE. BOARD UPDATED. CALL LIGHT PLACED WITHIN PATIENT REACH. WILL CONTINUE TO MONITOR PATIENT.
[2019-09-08 20:05] VITALS: BP 139/70
[2019-09-08] MEDS: VENLAFAXINE XR 75 MG CAPER PO SCH (20:11)
[2019-09-08] MEDS: levETIRAcetam 500 MG TAB PO SCH (20:11)
--- NOTE | 2019-09-08 21:46 | NUR ---
ROUNDS DONE. PATIENT LYING IN BED. VISIBLE CHEST RISE AND FALL NOTED. WILL CONTINUE TO MONITOR PATIENT.
--- NOTE | 2019-09-08 21:51 | NUR ---
PRN ZOFRAN GIVEN AT THIS TIME FOR NAUSEA. WILL CONTINUE TO MONITOR PATIENT.
--- NOTE | 2019-09-09 00:15 | NUR ---
VITALS TAKEN AT THIS TIME. NO DISTRESS NOTED. WILL CONTINUE TO MONITOR PATIENT.
[2019-09-09 00:20] VITALS: BP 137/68
--- NOTE | 2019-09-09 02:15 | NUR ---
IV DISLODGED. REINSERTION DONE AT RIGHT FOREARM 24 GAUGE. PATENT, INTACT AND INFUSING WELL. WILL CONTINUE TO MONITOR PATIENT.
--- NOTE | 2019-09-09 03:50 | NUR ---
VITALS TAKEN AT THIS TIME. NO DISTRESS NOTED. WILL CONTINUE TO MONITOR PATIENT.
--- NOTE | 2019-09-09 03:55 | NUR ---
VITALS TAKEN AT THIS TIME. NO DISTRESS NOTED. WILL CONTINUE TO MONITOR PATIENT. Addendum: 09/09/19 at 0439 by Heide Mccain RN DISREGARD NOTE- WRONG PATIENT
[2019-09-09 04:01] VITALS: BP 130/63
[2019-09-09 06:49] LABS: BASOPHILS # (AUTO) 0.1 K/uL (0.00-0.22); BASOPHILS % (AUTO) 1.2 % (0.0-2.0); EOSINOPHILS # (AUTO) 0.5 K/uL (0-0.4); EOSINOPHILS % (AUTO) 4.3 % (0.0-4.0); HEMATOCRIT 36.8 % (36-48); LYMPHOCYTES # (AUTO) 2.6 K/uL (2.5-16.5); LYMPHOCYTES % (AUTO) 23.1 % (20.5-51.1); MEAN CORPUSCULAR HEMOGLOBIN 28 pg (27-31); MEAN CORPUSCULAR HGB CONC 33 g/dL (33-37); MEAN CORPUSCULAR VOLUME 87.2 fL (80-94); MONOCYTES # (AUTO) 0.9 K/uL (0.8-1.0); MONOCYTES % (AUTO) 7.5 % (1.7-9.3); NEUTROPHILS # (AUTO) 7.3 K/uL (1.8-7.7); NEUTROPHILS % (AUTO) 63.9 % (42.2-75.2); PLATELET COUNT (AUTO) 376 K/uL (140-450); RED BLOOD CELL COUNT(AUTO) 4.23 MIL/uL (4.20-5.40); RED CELL DISTRIBUTION WIDTH 15.5 % (11.6-13.7); WHITE BLOOD COUNT (AUTO) 11.5 K/uL (4.8-10.8)
--- NOTE | 2019-09-09 07:00 | NUR ---
PATIENT IN STABLE CONDITION. CALL LIGHT WITHIN PATIENT REACH. WILL ENDORSE TO AM SHIFT NURSE FOR CONTINUITY OF CARE.
--- NOTE | 2019-09-09 07:05 | NUR ---
RECEIVED BESIDE REPORT FROM NIGHTSHIFT NURSE. PT RESTING IN BED UPON ARRIVAL. ABLE TO MAKE NEEDS KNOWN. SKIN WARM AND DRY TO TOUCH. RESPIRATIONS EVEN AND UNLABORED WITH NO SOB OR RESPIRATORY DISTRESS. IV SITE IN RIGHT FA IS CLEAN, DRY, AND INTACT. SAFETY MEASURES IN PLACE. WILL CONTINUE TO MONITOR
[2019-09-09 07:27] LABS: CARBON DIOXIDE 25.6 mmol/L (21-32); CHLORIDE 110 mmol/L (98-107); CREATININE 0.7 mg/dL (0.6-1.3); GLUCOSE 110 mg/dL (74-106); POTASSIUM 4.6 mmol/L (3.5-5.1); SODIUM SERUM 145 mmol/L (136-145); UREA NITROGEN, BLOOD 25 mg/dL (7-18)
[2019-09-09 07:36] LABS: MAGNESIUM 2.2 mg/dL (1.8-2.4); PHOSPHORUS 2.7 mg/dL (2.5-4.9)
[2019-09-09 08:00] VITALS: BP 142/64
[2019-09-09] MEDS: levETIRAcetam 500 MG TAB PO SCH ×2 (09:00→21:00)
[2019-09-09] MEDS: ATORVASTATIN 20 MG TAB PO SCH (09:39)
[2019-09-09] MEDS: VENLAFAXINE XR 75 MG CAPER PO SCH ×2 (09:39→21:27)
--- NOTE | 2019-09-09 09:39 | NUR ---
ADMINISTERED SCHED MED PRESCRIBED PER MD ORDER. PT TOLERATED WELL. PT REFUSED KEPPRA. EDUCATED PT ON IMPORTANCE OF KEPPRA BUT SHE STILL INSISTED THAT SHE DID NOT WANT IT.
--- NOTE | 2019-09-09 11:33 | NUR ---
HOURLY ROUNDING. PT RESTING IN BED UPON ARRIVAL. ABLE TO MAKE NEEDS KNOWN. SKIN WARM AND DRY TO TOUCH. RESPIRATIONS EVEN AND UNLABORED WITH NO SOB OR RESPIRATORY DISTRESS. SAFETY MEASURES IN PLACE. WILL CONTINUE TO MONITOR.
[2019-09-09 12:00] VITALS: BP 138/69
--- NOTE | 2019-09-09 14:34 | NUR ---
DC PLANNIN YRS OLD FEMALE PATIENT WAS ADMITTED FROM HOME WITH A DX OF GRAVELY DISABLED. HAS A HX OF SCHIZOPHRENIA SEIZURE DISORDER , DEPRESSION AND ANXIETY AND SUCIDAL ATTEMPT IN THE LAST 2-3 YRS . ADMINISTERED IV ROCEPHIN PT EVAL . CONSULT WITH DR STEFF HARRIS , PSYCH CONSULT WITH DR DEL RIO, CONTINUE HOME MEDS. DC PLAN TO GO HOME WITH THE FAMILY WHEN STABLE CM TO FOLLOW Addendum: 09/09/19 at 1719 by Juliet Alcantara SS Gabby from [facility] board and [facility] came to evaluate patient, however, patient stated Gabby's board and care are too far ([place]) and prefers a place close to our hospital. Per Gabby, she is willing to accept patient if patient agrees. Per Elayne [facility] [place] , their clinical administrator will come to evaluate patient tomorrow.
[2019-09-09] MEDS: NACL 0.9% 1,000 ML IV SCH (14:54)
--- NOTE | 2019-09-09 14:54 | NUR ---
ADMINISTERED IVF PRESCRIBED PER MD ORDER. PT TOLERATED WELL. MEDICATION EDUCATION PERFORMED. PT VERBALIZE UNDERSTANDING. WILL CONTINUE TO MONITOR Addendum: 09/09/19 at 1831 by Hannah Farris RN DOUBLE ENTRY
--- NOTE | 2019-09-09 14:54 | NUR ---
ADMINISTERED SCHED IVF PRESCRIBED PER MD ORDER. PT TOLERATED WELL. MEDICATION EDUCATION PERFORMED. PT VERBALIZE UNDERSTANDING. WILL CONTINUE TO MONITOR
[2019-09-09 16:00] VITALS: BP 137/72
--- NOTE | 2019-09-09 18:06 | NUR ---
ADMINISTERED SCHED MED PRESCRIBED PER MD ORDER. PT TOLERATED WELL. MEDICATION EDUCATION PERFORMED. PT VERBALIZE UNDERSTANDING. WILL CONTINUE TO MONITOR
--- NOTE | 2019-09-09 19:10 | NUR ---
ENDORSED TO NIGHTSHIFT AT BEDSIDE. PT RESTING IN BED UPON ARRIVAL. ABLE TO MAKE NEEDS KNOWN. SKIN WARM AND DRY TO TOUCH. RESPIRATIONS EVEN AND UNLABORED WITH NO SOB OR RESPIRATORY DISTRESS. SAFETY MEASURES IN PLACE. PT IS STABLE.
--- NOTE | 2019-09-09 19:11 | NUR ---
RECD. RESTING IN BED, WATCHING TV. A/OX4. RESPIRATION EVEN AND UNLABORED. IV OF NS AT 60 ML/HR INFUSING, RIGHT FOREARM G22. ENCOURAGED TO DRINK MORE FLUIDS. PLAN OF CARE FOR THE SHIFT DISCUSSED.VERBALIZED UNDERSTANDING. DENIES PAIN 0/10.
[2019-09-09 20:00] VITALS: BP 137/70
--- NOTE | 2019-09-09 21:27 | NUR ---
DUE PO MEDICATIONS GIVEN, ELO KEMEREDITHRA, STATED IT MAKES HER NAUSEOUS. INFORMED DR. DELANEY.
--- NOTE | 2019-09-09 23:00 | NUR ---
UNABLE TO CONTROL BLADDER, VOID WHILE AMBULATING TO THE BR. ASSISTED WITH CLEANSING AND CHANGING GOWN.
[2019-09-10] VITALS: BP 132/63
--- NOTE | 2019-09-10 01:58 | NUR ---
Patient's Plan of Care was discussed and reviewed with DEWAXER: TINA BUTTERFIELD
--- NOTE | 2019-09-10 03:00 | NUR ---
ASSISTED TO BR TO VOID, BACK TO BED AFTER VOIDING. GAIT STEADY BUT SEEMS WEAK.
[2019-09-10 04:00] VITALS: BP 149/72
--- NOTE | 2019-09-10 04:21 | NUR ---
WITH HEADACHE, MEDICATED WITH TYLENOL PER MD ORDER.
--- NOTE | 2019-09-10 05:20 | NUR ---
NO COMPLAINT OF PAIN 0/10. RESTING COMFORTABLY SLEEPING IN BED.
[2019-09-10 06:58] LABS: BASOPHILS # (AUTO) 0.1 K/uL (0.00-0.22); EOSINOPHILS # (AUTO) 0.4 K/uL (0-0.4); EOSINOPHILS % (AUTO) 3.8 % (0.0-4.0); HEMOGLOBIN 12.1 g/dL (12.0-16.0); LYMPHOCYTES % (AUTO) 20.2 % (20.5-51.1); MEAN CORPUSCULAR HEMOGLOBIN 28 pg (27-31); MEAN CORPUSCULAR HGB CONC 33 g/dL (33-37); MEAN CORPUSCULAR VOLUME 86.6 fL (80-94); MONOCYTES # (AUTO) 0.7 K/uL (0.8-1.0); MONOCYTES % (AUTO) 7.1 % (1.7-9.3); NEUTROPHILS # (AUTO) 6.8 K/uL (1.8-7.7); NEUTROPHILS % (AUTO) 67.9 % (42.2-75.2); PLATELET COUNT (AUTO) 369 K/uL (140-450); RED BLOOD CELL COUNT(AUTO) 4.27 MIL/uL (4.20-5.40); RED CELL DISTRIBUTION WIDTH 15.6 % (11.6-13.7); WHITE BLOOD COUNT (AUTO) 10.1 K/uL (4.8-10.8)
--- NOTE | 2019-09-10 07:05 | NUR ---
CONDITION REMAIN STABLE. ENDORSED TO AM SHIFT NURSE FOR CONTINUITY OF CARE.
--- NOTE | 2019-09-10 07:10 | NUR ---
RECEIVED BEDSIDE REPORT FROM NIGHTSHIFT NURSE. PT RESTING IN BED UPON ARRIVAL. ABLE TO MAKE NEEDS KNOWN. RESPIRATIONS EVEN AND UNLABORED WITH NO SOB OR RESPIRATORY DISTRESS. SKIN WARM AND DRY TO TOUCH. IV SITE IN RFA 24G IS CLEAN, DRY, AND INTACT. SAFETY MEASURES IN PLACE. WILL CONTINUE TO MONITOR
[2019-09-10 07:30] LABS: MAGNESIUM 1.8 mg/dL (1.8-2.4); PHOSPHORUS 2.5 mg/dL (2.5-4.9)
[2019-09-10 07:35] LABS: ANION GAP 12.4 (8-16); CARBON DIOXIDE 27.3 mmol/L (21-32); CHLORIDE 107 mmol/L (98-107); CREATININE 0.7 mg/dL (0.6-1.3); GLUCOSE 112 mg/dL (74-106); POTASSIUM 4.7 mmol/L (3.5-5.1); SODIUM SERUM 142 mmol/L (136-145); UREA NITROGEN, BLOOD 12 mg/dL (7-18)
[2019-09-10 08:00] VITALS: BP 137/69
[2019-09-10] MEDS: NACL 0.9% 1,000 ML IV SCH (08:15)
[2019-09-10] MEDS: ATORVASTATIN 20 MG TAB PO SCH (08:56)
[2019-09-10] MEDS: levETIRAcetam 500 MG TAB PO SCH (08:58)
--- NOTE | 2019-09-10 08:58 | NUR ---
ADMINISTERED SCHED MED PRESCRIBED PER MD ORDER. PT REFUSED KEPPRA. EDUCATED PT ON PURPOSE OF IT BUT IT WAS STILL REFUSED. PT STATED SHE DOES NOT LIKE TAKING IT. MEDICATION EDUCATION PERFORMED. PT VERBALIZED UNDERSTANDING. SAFETY MEASURES IN PLACE. WILL CONTINUE TO MONITOR
[2019-09-10] MEDS ORDERED: VENLAFAXINE 37.5 MG TAB PO SCH ×2 (09:00→21:00)
--- NOTE | 2019-09-10 10:45 | NUR ---
HOURLY ROUNDING. PT RESTING IN BED UPON ARRIVAL. ABLE TO MAKE NEEDS KNOWN. RESPIRATIONS EVEN AND UNLABORED WITH NO SOB OR RESPIRATORY DISTRESS. SKIN WARM AND DRY TO TOUCH. SAFETY MEASURES IN PLACE. WILL CONTINUE TO MONITOR
--- NOTE | 2019-09-10 11:30 | NUR ---
PT HAS DC ORDER AND IS AWARE. PT SISTER WILL BE PICKING HER UP AFTER LUNCH TIME. SAFETY MEASURES IN PLACE
[2019-09-10 12:00] VITALS: BP 140/78
--- NOTE | 2019-09-10 12:45 | NUR ---
HOURLY ROUNDING. PT SLEEPING IN BED. RESPONSIVE TO VERBAL AND TACTILE STIMULI. ABLE TO MAKE NEEDS KNOWN. RESPIRATIONS EVEN AND UNLABORED WITH NO SOB OR RESPIRATORY DISTRESS. SKIN WARM AND DRY TO TOUCH. SAFETY MEASURES IN PLACE. WILL CONTINUE TO MONITOR
[2019-09-10] MEDS ORDERED: [UNRECOGNIZED DRUG - CODE] PO (12:51)
[2019-09-10] MEDS ORDERED: KEP500 PO (12:51)
[2019-09-10] MEDS ORDERED: QUET50TA PO (12:51)
[2019-09-10 13:52] VITALS: BP 140/78
--- NOTE | 2019-09-10 14:15 | NUR ---
PT RESTING IN BED UPON ARRIVAL. ABLE TO MAKE NEEDS KNOWN. RESPIRATIONS EVEN AND UNLABORED WITH NO SOB OR RESPIRATORY DISTRESS. SKIN WARM AND DRY TO TOUCH. WENT OVER DC INSTRUCTIONS WITH PT. PT SIGNED APPROPRIATE FORMS. ID BAND, ALLERGY BAND, AND INTACT IV CANNULA REMOVED. PT REFUSED PNA AND FLU VACCINE. PT CHANGED INTO HER OWN CLOTHES AND GATHERED HER BELONGS. INSTRUCTED PT TO VISIT ED FOR ANY SIGNS AND SYMPTOMS OF EMERGENCY DISTRESS. PT VERBALIZED UNDERSTANDING. PT ESCORTED OUT TO HER PRIVATE VEHICLE WHERE HER SISTER WAS WAITING TO TAKE HER. PT IS STABLE.
[2019-09-10] MEDS ORDERED: QUEtiapine FUMARATE 25 MG TAB PO SCH ×2 (21:00)
== END 2019-09-10 14:15 | disposition home or self-care (01) | DRG 74 ==
LOC: MED 18:18 → MTU 09-08 05:15
PROVIDERS: ADMIT General Practice; ATTEND General Practice
DX: G90.8 Other disorders of autonomic nervous system (principal); N39.0 Urinary tract infection, site not specified; F20.9 Schizophrenia, unspecified; E83.42 Hypomagnesemia; F41.9 Anxiety disorder, unspecified; K21.9 Gastro-esophageal reflux disease without esophagitis; R62.7 Adult failure to thrive; G40.909 Epilepsy, unspecified, not intractable, without status epilepticus; Z96.651 Presence of right artificial knee joint; E78.5 Hyperlipidemia, unspecified; Z88.5 Allergy status to narcotic agent; Z88.0 Allergy status to penicillin; Z79.899 Other long term (current) drug therapy; Z68.23 Body mass index [BMI] 23.0-23.9, adult; Z90.710 Acquired absence of both cervix and uterus
CPT/HCPCS: 36415; 71045; 80048; 80053; 80305; 81001; 82140; 83036; 83605; 83735; 83880; 84100; 84134; 84439; 84443; 85025; 85610; 85730; 87081; 87086; 96372; 99285; G0480; G0482; J0696; J1200; J2060; J2405; J3475; J3486; J7030; J7060; Q0092

== ENCOUNTER 2019-10-26 16:18 | Emergency (ER) | payer OTHER, MEDICAID ==
[~2019-10-26] VITALS: Ht 167.6 cm; Wt 68.2 kg
[~2019-10-26 16:18] MED LIST changes: -ALPR2TAB1 PO; +KEP500 PO; -LACT10CA PO; -LEVE500T9 PO; -PANT40EC PO; +QUET50TA PO; -SIMV10TA92 PO; -SULF-59 PO; -VENL150C1 PO; -ZOLP10TA1 PO; +[UNRECOGNIZED DRUG - CODE] PO; -[UNRECOGNIZED DRUG - CODE] PO
[2019-10-26 16:26] VITALS: BP 152/83
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
--- NOTE | 2019-10-26 16:29 | NUR ---
DR ELIZONDO AT BEDSIDE EXAMINING PT
--- NOTE | 2019-10-26 16:30 | NUR ---
ERMD AT BEDSIDE
--- NOTE | 2019-10-26 17:00 | NUR ---
PT RESTING IN BED, SIDE RAIL X1
--- NOTE | 2019-10-26 18:13 | NUR ---
POISON CONTROL CALLED, SPOKE TO ELECTRICIAN SHIP BY THE NAME OF JILL. PER POISON CONTROL RECOMMENDATION: -TOXICOLOGY LABS -TYLENOL SALYCILATES -24-48 HOUR OBSERVATION -AVOID FLUMAZENIL NOTIFY POISON CONTROL IF PATIENT BECOMES ASYMPTOMATIC.
--- NOTE | 2019-10-26 18:26 | NUR ---
Dr. Johnson is evaluating the patient at bedside.
--- NOTE | 2019-10-26 18:30 | NUR ---
PT ATE 100% OF MEAL TRAY. AWAKE, ALERT. PER DR MIKHAIL IVORY FOR D/C.
--- NOTE | 2019-10-26 18:40 | NUR ---
IV removed, catheter intact and site benign. Applied folded 4x4 gauze and tape to stop bleeding.
--- NOTE | 2019-10-26 18:45 | NUR ---
BUS PASS OFFERED. ATTEMPTED TO CALL FAMILY--NO ANSWER.
--- NOTE | 2019-10-26 18:47 | NUR ---
PT REFUSING TO LEAVE--SECURITY CALLED.
--- NOTE | 2019-10-26 18:55 | NUR ---
SECUIRTY AT BEDSIDE. PT ESCORTED OUT OF ED WITH SECURITY.
[2019-10-26 19:03] VITALS: BP 152/83
== END 2019-10-26 18:55 | disposition home or self-care (01) ==
LOC: MED 16:18
DX: T42.4X1A Poisoning by benzodiazepines, accidental (unintentional), initial encounter (principal); K21.9 Gastro-esophageal reflux disease without esophagitis; F32.9 Major depressive disorder, single episode, unspecified; F41.9 Anxiety disorder, unspecified; F20.9 Schizophrenia, unspecified; Z98.890 Other specified postprocedural states; Z90.710 Acquired absence of both cervix and uterus; Z79.899 Other long term (current) drug therapy; Z88.0 Allergy status to penicillin; Z88.5 Allergy status to narcotic agent; Y92.89 Other specified places as the place of occurrence of the external cause
CPT/HCPCS: 99281; 99283

== ENCOUNTER 2019-12-27 08:49 | Emergency (ER) | payer OTHER, MEDICAID ==
[~2019-12-27] VITALS: Ht 167.6 cm; Wt 49.9 kg
--- NOTE | 2019-12-27 08:49 | NUR ---
The patient was BIBA BLS, transferred to bed 5. RN is evaluating the patient at bedside.
--- NOTE | 2019-12-27 08:58 | NUR ---
Dr. Celestin is evaluating the patient at bedside.
[2019-12-27 08:59] VITALS: BP 130/73
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
[2019-12-27 09:22] LABS: BASOPHILS # (AUTO) 0.1 K/uL (0.00-0.22); BASOPHILS % (AUTO) 0.6 % (0.0-2.0); EOSINOPHILS % (AUTO) 0.2 % (0.0-4.0); HEMATOCRIT 38.1 % (36-48); HEMOGLOBIN 12.3 g/dL (12.0-16.0); LYMPHOCYTES # (AUTO) 1.2 K/uL (2.5-16.5); MEAN CORPUSCULAR HEMOGLOBIN 27 pg (27-31); MEAN CORPUSCULAR HGB CONC 32 g/dL (33-37); MEAN CORPUSCULAR VOLUME 84.8 fL (80-94); MONOCYTES # (AUTO) 1.3 K/uL (0.8-1.0); MONOCYTES % (AUTO) 8.2 % (1.7-9.3); NEUTROPHILS # (AUTO) 13.8 K/uL (1.8-7.7); PLATELET COUNT (AUTO) 367 K/uL (140-450); RED CELL DISTRIBUTION WIDTH 17.1 % (11.6-13.7); WHITE BLOOD COUNT (AUTO) 16.4 K/uL (4.8-10.8)
[2019-12-27 09:39] LABS: ALBUMIN 4.1 g/dL (3.4-5.0); ASPARTATE AMINOTRANSFERASE 78 U/L (15-37); CHLORIDE 108 mmol/L (98-107); CREATININE 1.1 mg/dL (0.6-1.3); GLUCOSE 102 mg/dL (74-106); SODIUM SERUM 145 mmol/L (136-145); TOTAL BILIRUBIN 0.7 mg/dL (0.0-1.0); UREA NITROGEN, BLOOD 18 mg/dL (7-18)
[2019-12-27 09:49] LABS: ACETAMINOPHEN < 0.5 ug/ml (10-30)
--- NOTE | 2019-12-27 10:09 | NUR ---
PT SLEEPING IN BED. AROUSEABLE TO NAME. BED IN LOWEST POSITION, LOCKED AND WITH SIDE RAILS UP.
[2019-12-27 10:18] LABS: APPEARANCE,URINE HAZY (CLEAR); BILIRUBIN,URINE NEGATIVE (NEGATIVE); BLOOD, URINE 2+ (NEGATIVE); COLOR,URINE YELLOW (YELLOW); LEUKOCYTE ESTERASE ,URINE TRACE (NEGATIVE); NITRITE, URINE NEGATIVE (NEGATIVE); PH,URINE 5.5 (5.0-9.0); UGLUCOSE NEGATIVE (NEGATIVE)
[2019-12-27 10:26] LABS: WBC,URINE 0-5 /HPF (0-5)
[2019-12-27 10:27] LABS: URINE AMORPHOUS URATE 2+ /HPF (None Seen)
[2019-12-27 10:38] LABS: SALICYLATE < 2.8 mg/dL (2.8-20.0)
--- NOTE | 2019-12-27 10:45 | NUR ---
Telepsychiatry consultation ordered as requested by Dr. Celestin.
[2019-12-27 10:47] LABS: BENZODIAZEPINE, URINE POSITIVE ng/mL (NEG <=200); OPIATE, URINE POSITIVE ng/mL (NEG <=2000)
[2019-12-27 10:48] LABS: BARBITURATE, URINE NEGATIVE ng/ml (NEG <=200); CANNABINOID, URINE NEGATIVE ng/mL (NEG <=50); COCAINE, URINE NEGATIVE ng/mL (NEG <=300); PHENCYCLIDINE SCREEN,URINE NEGATIVE ng/mL (NEG <=25)
--- NOTE | 2019-12-27 11:11 | NUR ---
TELEPSYCH MD TALKING TO PATIENT
--- NOTE | 2019-12-27 11:13 | NUR ---
Dr. Anglin is evaluating the patient via telepsychiatry.
--- NOTE | 2019-12-27 11:59 | NUR ---
Dr. Celestin is re-evaluating the patient at bedside.
--- NOTE | 2019-12-27 12:25 | NUR ---
called pts sister and she yelled at me that she could not come back home and hung up the phone. called social service liaison and advised the situation. they will come talk to the patient. grayson menon ordered
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
--- NOTE | 2019-12-27 13:53 | NUR ---
case management at bedside Addendum: 12/27/19 at 1403 by STEVE EVENT PLANNING MANAGER AT BEDSIDE
[2019-12-27 14:03] VITALS: BP 135/74
--- NOTE | 2019-12-27 14:03 | NUR ---
PT IS SITTING UP IN BED. VSS. ALL NEEDS MET AT THIS TIME
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
== END 2019-12-27 12:25 | disposition home or self-care (01) ==
LOC: MED 08:49
DX: T42.4X5A Adverse effect of benzodiazepines, initial encounter (principal); K21.9 Gastro-esophageal reflux disease without esophagitis; Z88.0 Allergy status to penicillin; Z88.5 Allergy status to narcotic agent; Z79.899 Other long term (current) drug therapy; Y92.89 Other specified places as the place of occurrence of the external cause
CPT/HCPCS: 36415; 80053; 80305; 81001; 85025; 93005; 99284; G0480; G0482; 99285

== ENCOUNTER 2020-04-14 16:39 | Inpatient (IN) | payer OTHER, MEDICAID ==
[~2020-04-14] VITALS: Ht 167.6 cm; Wt 48.1 kg
[~2020-04-14 16:39] MED LIST changes: -KEP500 PO; +LEVE1000 PO; -QUET50TA PO; -[UNRECOGNIZED DRUG - CODE] PO
[2020-04-14 16:40] VITALS: BP 148/96
[2020-04-14] MEDS ORDERED: ACET-2619 PO (16:45)
[2020-04-14] MEDS ORDERED: TRAM50TA1 PO (16:45)
[2020-04-14] MEDS ORDERED: ASCO500T95 PO (16:45)
[2020-04-14] MEDS ORDERED: ZINC220C28 PO (16:45)
[2020-04-14] MEDS ORDERED: SCOP1PAT TP (16:45)
[2020-04-14] MEDS ORDERED: ONDA4TAB PO (16:45)
[2020-04-14] MEDS ORDERED: MEGE40SU5 PO (16:45)
[2020-04-14] MEDS ORDERED: CHOL200035 PO (16:45)
[2020-04-14] MEDS ORDERED: NUTR887L11 PO (16:47)
[2020-04-14] MEDS ORDERED: NACL 0.9% 1,000 ML IV SCH (16:57)
[2020-04-14] MEDS ORDERED: ONDANSETRON 4 MG/2 ML VIAL IVP ONE (17:00)
[2020-04-14] MEDS ORDERED: MORPHINE SULFATE 4 MG/ML SYR IVP ONE (17:00)
[2020-04-14] MEDS ORDERED: levETIRAcetam 1,000 MG in NACL 0.9% 100 ML IV ONE (17:20)
[2020-04-14] MEDS ORDERED: levETIRAcetam 100 MG/ML VIAL IV ONE (17:32)
[2020-04-14 17:35] LABS: HEMATOCRIT 36.3 % (36-48); HEMOGLOBIN 11.7 g/dL (12.0-16.0); MEAN CORPUSCULAR HEMOGLOBIN 28 pg (27-31); MEAN CORPUSCULAR HGB CONC 32 g/dL (33-37); MEAN CORPUSCULAR VOLUME 85.7 fL (80-94); PLATELET COUNT (AUTO) 430 K/uL (140-450); RED BLOOD CELL COUNT(AUTO) 4.24 MIL/uL (4.20-5.40); RED CELL DISTRIBUTION WIDTH 17.3 % (11.6-13.7)
[2020-04-14 17:58] LABS: EOSINOPHILS % (MANUAL) 1 % (0-4); LYMPHOCYTES % (MANUAL) 6 % (20-46); MONOCYTES % (MANUAL) 14 % (5-12)
[2020-04-14 18:02] LABS: ALBUMIN 3.2 g/dL (3.4-5.0); AMYLASE 19 U/L (25-115); ANION GAP 17.1 (8-16); ASPARTATE AMINOTRANSFERASE 47 U/L (15-37); CARBON DIOXIDE 23.3 mmol/L (21-32); CHLORIDE 104 mmol/L (98-107); CREATININE 0.8 mg/dL (0.6-1.3); GLUCOSE 113 mg/dL (74-106); LIPASE 57 U/L (73-393); POTASSIUM 4.4 mmol/L (3.5-5.1); SODIUM SERUM 140 mmol/L (136-145); UREA NITROGEN, BLOOD 31 mg/dL (7-18)
[2020-04-14] MEDS ORDERED: metroNIDAZOLE 500 MG/NS PREMIX 100 ML IV ONE (18:10)
[2020-04-14 18:27] LABS: APPEARANCE,URINE SL CLOUDY (CLEAR); BILIRUBIN,URINE 1+ (NEGATIVE); BLOOD, URINE NEGATIVE (NEGATIVE); COLOR,URINE AMBER (YELLOW); LEUKOCYTE ESTERASE ,URINE NEGATIVE (NEGATIVE); NITRITE, URINE NEGATIVE (NEGATIVE); UGLUCOSE NEGATIVE (NEGATIVE)
[2020-04-14] MEDS ORDERED: cefTRIAXone 1,000 MG VIAL ONE (18:28)
[2020-04-14 19:19] LABS: RBC,URINE 0-5 /HPF (0-5); WBC,URINE 0-5 /HPF (0-5)
[2020-04-14 19:20] LABS: URINE AMORPHOUS URATE 2+ /HPF (None Seen)
[2020-04-14 20:15] VITALS: BP 125/61
[2020-04-15] MEDS: NACL 0.9% 1,000 ML IV SCH ×4 (01:00→23:43)
[2020-04-15] MEDS: metroNIDAZOLE 500 MG/NS PREMIX 100 ML IV SCH ×2 (01:00→05:44)
[2020-04-15 01:30] VITALS: BP 135/57
[2020-04-15 04:00] VITALS: BP 125/61
[2020-04-15 06:30] LABS: ALBUMIN 2.7 g/dL (3.4-5.0); ANION GAP 16.7 (8-16); ASPARTATE AMINOTRANSFERASE 39 U/L (15-37); BASOPHILS # (AUTO) 0.2 K/uL (0.00-0.22); BASOPHILS % (AUTO) 0.8 % (0.0-2.0); CARBON DIOXIDE 22.3 mmol/L (21-32); CHLORIDE 106 mmol/L (98-107); CREATININE 0.8 mg/dL (0.6-1.3); EOSINOPHILS # (AUTO) 0.5 K/uL (0-0.4); EOSINOPHILS % (AUTO) 2.5 % (0.0-4.0); GLUCOSE 129 mg/dL (74-106); HEMATOCRIT 33.5 % (36-48); HEMOGLOBIN 10.6 g/dL (12.0-16.0); LYMPHOCYTES # (AUTO) 1.4 K/uL (2.5-16.5); LYMPHOCYTES % (AUTO) 7.6 % (20.5-51.1); MAGNESIUM 1.7 mg/dL (1.8-2.4); MEAN CORPUSCULAR HEMOGLOBIN 28 pg (27-31); MEAN CORPUSCULAR HGB CONC 32 g/dL (33-37); MEAN CORPUSCULAR VOLUME 86.7 fL (80-94); MONOCYTES # (AUTO) 2.1 K/uL (0.8-1.0); MONOCYTES % (AUTO) 11.5 % (1.7-9.3); NEUTROPHILS # (AUTO) 14.5 K/uL (1.8-7.7); NEUTROPHILS % (AUTO) 77.6 % (42.2-75.2); PLATELET COUNT (AUTO) 376 K/uL (140-450); RED BLOOD CELL COUNT(AUTO) 3.86 MIL/uL (4.20-5.40); RED CELL DISTRIBUTION WIDTH 16.6 % (11.6-13.7); SODIUM SERUM 141 mmol/L (136-145); TOTAL BILIRUBIN 0.8 mg/dL (0.0-1.0); UREA NITROGEN, BLOOD 28 mg/dL (7-18); WHITE BLOOD COUNT (AUTO) 18.8 K/uL (4.8-10.8)
[2020-04-15 08:00] VITALS: BP 120/60
[2020-04-15] MEDS: ENOXAPARIN 30 MG/0.3 ML SYR SUBQ SCH (09:20)
[2020-04-15] MEDS: AZITHROMYCIN 500 MG in DEXTROSE 5% 250 ML IV SCH (11:45)
[2020-04-15] MEDS: SCOPOLAMINE 1.5 MG/72 HR PATCH TD SCH (11:45)
[2020-04-15] MEDS: HYDROmorphone PFS 2 MG/ML SYR IVP PRN ×2 (13:05→21:17)
[2020-04-15 16:00] VITALS: BP 125/74
[2020-04-15] MEDS: traMADol 50 MG TAB PO PRN (18:45)
[2020-04-15] MEDS: MEGESTROL 400 MG/10 ML UDC PO SCH (21:09)
[2020-04-15] MEDS: levETIRAcetam 500 MG TAB PO SCH (21:09)
[2020-04-16] VITALS: BP 148/93
[2020-04-16] MEDS: HYDROmorphone PFS 2 MG/ML SYR IVP PRN (03:25)
[2020-04-16 06:43] LABS: HEMOGLOBIN 10.7 g/dL (12.0-16.0); MEAN CORPUSCULAR HEMOGLOBIN 27 pg (27-31); MEAN CORPUSCULAR HGB CONC 32 g/dL (33-37); MEAN CORPUSCULAR VOLUME 86.6 fL (80-94); PLATELET COUNT (AUTO) 400 K/uL (140-450); RED BLOOD CELL COUNT(AUTO) 3.93 MIL/uL (4.20-5.40); WHITE BLOOD COUNT (AUTO) 23.7 K/uL (4.8-10.8)
[2020-04-16 07:09] LABS: ALBUMIN 2.6 g/dL (3.4-5.0); ANION GAP 16.5 (8-16); ASPARTATE AMINOTRANSFERASE 38 U/L (15-37); CARBON DIOXIDE 21.7 mmol/L (21-32); CHLORIDE 107 mmol/L (98-107); CREATININE 0.7 mg/dL (0.6-1.3); GLUCOSE 111 mg/dL (74-106); POTASSIUM 4.2 mmol/L (3.5-5.1); SODIUM SERUM 141 mmol/L (136-145); TOTAL BILIRUBIN 0.7 mg/dL (0.0-1.0); UREA NITROGEN, BLOOD 24 mg/dL (7-18)
[2020-04-16 07:27] LABS: BASOPHILS % (MANUAL) 0 % (0-2); EOSINOPHILS % (MANUAL) 1 % (0-4); LYMPHOCYTES % (MANUAL) 6 % (20-46); MONOCYTES % (MANUAL) 12 % (5-12)
[2020-04-16 08:00] VITALS: BP 104/72
[2020-04-16] MEDS: ENOXAPARIN 30 MG/0.3 ML SYR SUBQ SCH (08:14)
[2020-04-16] MEDS: MEGESTROL 400 MG/10 ML UDC PO SCH ×2 (08:15→21:09)
[2020-04-16] MEDS: levETIRAcetam 500 MG TAB PO SCH ×2 (08:15→21:00)
[2020-04-16] MEDS: VITAMIN D 400 IU TAB PO SCH (09:25)
[2020-04-16] MEDS: ASCORBIC ACID 500 MG TAB PO SCH (09:25)
[2020-04-16] MEDS: ZINC SULF 220 MG CAP PO SCH (09:26)
[2020-04-16] MEDS ORDERED: MAG SULF 2000 MG/WATER PREMIX 50 ML IV SCH (10:30)
[2020-04-16] MEDS: AZITHROMYCIN 500 MG in DEXTROSE 5% 250 ML IV SCH (12:40)
[2020-04-16 16:00] VITALS: BP 114/61
[2020-04-16] MEDS: NACL 0.9% 1,000 ML IV SCH (21:31)
[2020-04-17] VITALS: BP 121/69
[2020-04-17] MEDS: NACL 0.9% 1,000 ML IV SCH ×2 (00:14→10:45)
[2020-04-17 06:40] LABS: CARBON DIOXIDE 20.6 mmol/L (21-32); CHLORIDE 108 mmol/L (98-107); CREATININE 0.6 mg/dL (0.6-1.3); GLUCOSE 116 mg/dL (74-106); POTASSIUM 3.6 mmol/L (3.5-5.1); SODIUM SERUM 143 mmol/L (136-145); UREA NITROGEN, BLOOD 20 mg/dL (7-18)
[2020-04-17 06:41] LABS: BASOPHILS # (AUTO) 0.1 K/uL (0.00-0.22); BASOPHILS % (AUTO) 0.6 % (0.0-2.0); EOSINOPHILS # (AUTO) 0.2 K/uL (0-0.4); HEMATOCRIT 29.1 % (36-48); HEMOGLOBIN 9.3 g/dL (12.0-16.0); LYMPHOCYTES # (AUTO) 1.5 K/uL (2.5-16.5); LYMPHOCYTES % (AUTO) 7.7 % (20.5-51.1); MEAN CORPUSCULAR HEMOGLOBIN 27 pg (27-31); MEAN CORPUSCULAR HGB CONC 32 g/dL (33-37); MEAN CORPUSCULAR VOLUME 85.7 fL (80-94); MONOCYTES # (AUTO) 1.7 K/uL (0.8-1.0); MONOCYTES % (AUTO) 8.5 % (1.7-9.3); NEUTROPHILS # (AUTO) 16.1 K/uL (1.8-7.7); NEUTROPHILS % (AUTO) 82.2 % (42.2-75.2); PLATELET COUNT (AUTO) 336 K/uL (140-450); RED CELL DISTRIBUTION WIDTH 16.8 % (11.6-13.7); WHITE BLOOD COUNT (AUTO) 19.6 K/uL (4.8-10.8)
[2020-04-17 08:00] VITALS: BP 149/86
[2020-04-17] MEDS: MEGESTROL 400 MG/10 ML UDC PO SCH ×4 (08:38→21:00)
[2020-04-17] MEDS: ZINC SULF 220 MG CAP PO SCH (08:39)
[2020-04-17] MEDS: levETIRAcetam 500 MG TAB PO SCH ×3 (08:39→21:00)
[2020-04-17] MEDS: ASCORBIC ACID 500 MG TAB PO SCH (08:39)
[2020-04-17] MEDS: VITAMIN D 400 IU TAB PO SCH (08:39)
[2020-04-17] MEDS: ENOXAPARIN 30 MG/0.3 ML SYR SUBQ SCH (08:40)
[2020-04-17] MEDS: AZITHROMYCIN 500 MG in DEXTROSE 5% 250 ML IV SCH (10:56)
[2020-04-17] MEDS ORDERED: THERAHONEY GEL 42.5 GM TP PRN (12:35)
[2020-04-17] MEDS: HYDRAGUARD CREAM TP SCH (13:32)
[2020-04-17] MEDS: THERAHONEY GEL 42.5 GM TP SCH (13:32)
[2020-04-17 16:00] VITALS: BP 130/61
[2020-04-18] VITALS: BP 140/80
[2020-04-18] MEDS: NACL 0.9% 1,000 ML IV SCH ×3 (00:14→22:10)
[2020-04-18] MEDS: HYDRAGUARD CREAM TP SCH ×2 (04:00→13:00)
[2020-04-18 06:57] LABS: ANION GAP 18.7 (8-16); BASOPHILS # (AUTO) 0.1 K/uL (0.00-0.22); BASOPHILS % (AUTO) 0.4 % (0.0-2.0); CARBON DIOXIDE 21.7 mmol/L (21-32); CHLORIDE 106 mmol/L (98-107); CREATININE 0.7 mg/dL (0.6-1.3); EOSINOPHILS # (AUTO) 0.4 K/uL (0-0.4); EOSINOPHILS % (AUTO) 1.8 % (0.0-4.0); GLUCOSE 94 mg/dL (74-106); HEMATOCRIT 30.4 % (36-48); LYMPHOCYTES # (AUTO) 1.5 K/uL (2.5-16.5); LYMPHOCYTES % (AUTO) 7.6 % (20.5-51.1); MEAN CORPUSCULAR HEMOGLOBIN 28 pg (27-31); MEAN CORPUSCULAR HGB CONC 33 g/dL (33-37); MEAN CORPUSCULAR VOLUME 85.7 fL (80-94); MONOCYTES # (AUTO) 1.8 K/uL (0.8-1.0); MONOCYTES % (AUTO) 9.3 % (1.7-9.3); NEUTROPHILS # (AUTO) 15.5 K/uL (1.8-7.7); NEUTROPHILS % (AUTO) 80.9 % (42.2-75.2); PLATELET COUNT (AUTO) 350 K/uL (140-450); POTASSIUM 3.4 mmol/L (3.5-5.1); RED BLOOD CELL COUNT(AUTO) 3.55 MIL/uL (4.20-5.40); RED CELL DISTRIBUTION WIDTH 17.2 % (11.6-13.7); SODIUM SERUM 143 mmol/L (136-145); UREA NITROGEN, BLOOD 16 mg/dL (7-18); WHITE BLOOD COUNT (AUTO) 19.1 K/uL (4.8-10.8)
[2020-04-18 08:00] VITALS: BP 126/72
[2020-04-18] MEDS: ENOXAPARIN 30 MG/0.3 ML SYR SUBQ SCH (09:00)
[2020-04-18] MEDS: ZINC SULF 220 MG CAP PO SCH (09:00)
[2020-04-18] MEDS: levETIRAcetam 500 MG TAB PO SCH ×2 (09:00→21:15)
[2020-04-18] MEDS: MEGESTROL 400 MG/10 ML UDC PO SCH ×2 (09:00→21:16)
[2020-04-18] MEDS: VITAMIN D 400 IU TAB PO SCH (09:00)
[2020-04-18] MEDS: ASCORBIC ACID 500 MG TAB PO SCH (09:00)
[2020-04-18] MEDS ORDERED: POTASSIUM CHLORIDE 10 MEQ TABER PO SCH (10:00)
[2020-04-18] MEDS: THERAHONEY GEL 42.5 GM TP SCH (13:00)
[2020-04-18] MEDS: HYDROmorphone PFS 2 MG/ML SYR IVP PRN (13:23)
[2020-04-18] MEDS: AZITHROMYCIN 500 MG in DEXTROSE 5% 250 ML IV SCH (14:20)
[2020-04-18] MEDS: SCOPOLAMINE 1.5 MG/72 HR PATCH TD SCH (15:50)
[2020-04-18 16:00] VITALS: BP 125/80
[2020-04-18] MEDS ORDERED: MEROPENEM 1,000 MG VIAL IV ONE (21:17)
[2020-04-18] MEDS: MEROPENEM 1,000 MG in NACL 0.9% 100 ML IV SCH (22:45)
[2020-04-19] VITALS: BP 122/98
[2020-04-19] MEDS: HYDRAGUARD CREAM TP SCH ×2 (05:03→13:00)
[2020-04-19] MEDS ORDERED: MEROPENEM 1,000 MG VIAL IV ONE (05:55)
[2020-04-19] MEDS: MEROPENEM 1,000 MG in NACL 0.9% 100 ML IV SCH ×3 (06:01→21:00)
[2020-04-19 06:29] LABS: BASOPHILS # (AUTO) 0.1 K/uL (0.00-0.22); BASOPHILS % (AUTO) 0.4 % (0.0-2.0); EOSINOPHILS # (AUTO) 0.3 K/uL (0-0.4); EOSINOPHILS % (AUTO) 1.6 % (0.0-4.0); HEMATOCRIT 28.5 % (36-48); HEMOGLOBIN 9.2 g/dL (12.0-16.0); LYMPHOCYTES # (AUTO) 1.4 K/uL (2.5-16.5); LYMPHOCYTES % (AUTO) 6.7 % (20.5-51.1); MEAN CORPUSCULAR HEMOGLOBIN 27 pg (27-31); MEAN CORPUSCULAR HGB CONC 32 g/dL (33-37); MONOCYTES # (AUTO) 1.6 K/uL (0.8-1.0); NEUTROPHILS % (AUTO) 83.3 % (42.2-75.2); PLATELET COUNT (AUTO) 268 K/uL (140-450); RED BLOOD CELL COUNT(AUTO) 3.36 MIL/uL (4.20-5.40); RED CELL DISTRIBUTION WIDTH 17.4 % (11.6-13.7); WHITE BLOOD COUNT (AUTO) 20.4 K/uL (4.8-10.8)
[2020-04-19 06:49] LABS: ANION GAP 19.8 (8-16); CARBON DIOXIDE 18.5 mmol/L (21-32); CHLORIDE 107 mmol/L (98-107); CREATININE 0.6 mg/dL (0.6-1.3); GLUCOSE 104 mg/dL (74-106); POTASSIUM 3.3 mmol/L (3.5-5.1); SODIUM SERUM 142 mmol/L (136-145); UREA NITROGEN, BLOOD 15 mg/dL (7-18)
[2020-04-19 08:00] VITALS: BP 128/90
[2020-04-19] MEDS: MEGESTROL 400 MG/10 ML UDC PO SCH ×2 (09:00→21:00)
[2020-04-19] MEDS: levETIRAcetam 500 MG TAB PO SCH ×2 (09:00→21:00)
[2020-04-19] MEDS: VITAMIN D 400 IU TAB PO SCH (09:00)
[2020-04-19] MEDS: ENOXAPARIN 30 MG/0.3 ML SYR SUBQ SCH (09:00)
[2020-04-19] MEDS: ASCORBIC ACID 500 MG TAB PO SCH (09:00)
[2020-04-19] MEDS: ZINC SULF 220 MG CAP PO SCH (09:00)
[2020-04-19] MEDS: ACETAMINOPHEN 325 MG TAB PO PRN (10:35)
[2020-04-19] MEDS: HYDROmorphone PFS 2 MG/ML SYR IVP PRN (11:33)
[2020-04-19] MEDS: NACL 0.9% 1,000 ML IV SCH (12:50)
[2020-04-19] MEDS: THERAHONEY GEL 42.5 GM TP SCH (13:00)
[2020-04-19 16:00] VITALS: BP 152/94
[2020-04-20] MEDS: NACL 0.9% 1,000 ML IV SCH ×2 (00:16→12:46)
[2020-04-20 00:30] VITALS: BP 136/71
[2020-04-20] MEDS: HYDRAGUARD CREAM TP SCH ×2 (01:00→13:12)
[2020-04-20] MEDS: MEROPENEM 1,000 MG in NACL 0.9% 100 ML IV SCH ×3 (05:00→21:00)
[2020-04-20 06:15] LABS: HEMATOCRIT 28.5 % (36-48); MEAN CORPUSCULAR HEMOGLOBIN 27 pg (27-31); MEAN CORPUSCULAR HGB CONC 32 g/dL (33-37); MEAN CORPUSCULAR VOLUME 85.5 fL (80-94); PLATELET COUNT (AUTO) 261 K/uL (140-450); RED BLOOD CELL COUNT(AUTO) 3.34 MIL/uL (4.20-5.40); RED CELL DISTRIBUTION WIDTH 17.3 % (11.6-13.7); WHITE BLOOD COUNT (AUTO) 24.1 K/uL (4.8-10.8)
[2020-04-20 06:30] LABS: ANION GAP 18.5 (8-16); CARBON DIOXIDE 20.9 mmol/L (21-32); CHLORIDE 108 mmol/L (98-107); CREATININE 0.5 mg/dL (0.6-1.3); GLUCOSE 102 mg/dL (74-106); POTASSIUM 3.4 mmol/L (3.5-5.1); SODIUM SERUM 144 mmol/L (136-145); UREA NITROGEN, BLOOD 17 mg/dL (7-18)
[2020-04-20 08:00] VITALS: BP 134/95
[2020-04-20 08:25] LABS: EOSINOPHILS % (MANUAL) 1 % (0-4); LYMPHOCYTES % (MANUAL) 9 % (20-46); MONOCYTES % (MANUAL) 8 % (5-12)
[2020-04-20] MEDS ORDERED: LIDOCAINE 1% 500 MG/50 ML VIAL ONE (08:52)
[2020-04-20] MEDS ORDERED: BUPIVACAINE-MPF 0.25% 30 ML VIAL INJ ONE (08:52)
[2020-04-20] MEDS: VITAMIN D 400 IU TAB PO SCH (09:00)
[2020-04-20] MEDS: ASCORBIC ACID 500 MG TAB PO SCH (09:00)
[2020-04-20] MEDS: ZINC SULF 220 MG CAP PO SCH (09:00)
[2020-04-20] MEDS: levETIRAcetam 500 MG TAB PO SCH ×2 (09:00→21:00)
[2020-04-20] MEDS: MEGESTROL 400 MG/10 ML UDC PO SCH ×2 (09:00→21:00)
[2020-04-20] MEDS: ENOXAPARIN 30 MG/0.3 ML SYR SUBQ SCH (09:00)
[2020-04-20] MEDS ORDERED: POTASSIUM CHLORIDE 10 MEQ TABER PO SCH (10:00)
[2020-04-20] MEDS ORDERED: MAG SULF 2000 MG/WATER PREMIX 50 ML IV SCH (10:00)
[2020-04-20] MEDS: THERAHONEY GEL 42.5 GM TP SCH (13:12)
[2020-04-20 16:00] VITALS: BP 139/84
[2020-04-21] MEDS: HYDRAGUARD CREAM TP SCH ×2 (01:00→13:29)
[2020-04-21] MEDS: NACL 0.9% 1,000 ML IV SCH ×2 (01:16→13:46)
[2020-04-21] MEDS: MEROPENEM 1,000 MG in NACL 0.9% 100 ML IV SCH ×3 (04:28→21:00)
[2020-04-21 08:00] VITALS: BP 141/68
[2020-04-21] MEDS: ENOXAPARIN 30 MG/0.3 ML SYR SUBQ SCH (08:28)
[2020-04-21] MEDS: VITAMIN D 400 IU TAB PO SCH (08:28)
[2020-04-21] MEDS: MAGNESIUM OXIDE 400 MG TAB PO SCH (08:28)
[2020-04-21] MEDS: MEGESTROL 400 MG/10 ML UDC PO SCH ×2 (08:28→21:00)
[2020-04-21] MEDS: levETIRAcetam 500 MG TAB PO SCH ×2 (08:28→21:00)
[2020-04-21] MEDS: ZINC SULF 220 MG CAP PO SCH (08:29)
[2020-04-21] MEDS: ASCORBIC ACID 500 MG TAB PO SCH (08:29)
[2020-04-21] MEDS: traMADol 50 MG TAB PO PRN (10:08)
[2020-04-21] MEDS: SCOPOLAMINE 1.5 MG/72 HR PATCH TD SCH (11:53)
[2020-04-21] MEDS: THERAHONEY GEL 42.5 GM TP SCH (13:29)
[2020-04-21 16:00] VITALS: BP 112/59
[2020-04-22] VITALS: BP 132/80
[2020-04-22] MEDS: HYDRAGUARD CREAM TP SCH ×2 (01:12→13:35)
[2020-04-22] MEDS: NACL 0.9% 1,000 ML IV SCH (02:16)
[2020-04-22] MEDS: MEROPENEM 1,000 MG in NACL 0.9% 100 ML IV SCH ×3 (05:00→20:29)
[2020-04-22 06:57] LABS: HEMATOCRIT 30.2 % (36-48); HEMOGLOBIN 9.4 g/dL (12.0-16.0); MEAN CORPUSCULAR HEMOGLOBIN 27 pg (27-31); MEAN CORPUSCULAR HGB CONC 31 g/dL (33-37); MEAN CORPUSCULAR VOLUME 87.5 fL (80-94); PLATELET COUNT (AUTO) 215 K/uL (140-450); RED BLOOD CELL COUNT(AUTO) 3.46 MIL/uL (4.20-5.40); RED CELL DISTRIBUTION WIDTH 19.3 % (11.6-13.7)
[2020-04-22 07:05] LABS: ANION GAP 17.6 (8-16); CARBON DIOXIDE 24.9 mmol/L (21-32); CHLORIDE 111 mmol/L (98-107); CREATININE 0.7 mg/dL (0.6-1.3); GLUCOSE 107 mg/dL (74-106); POTASSIUM 3.5 mmol/L (3.5-5.1); SODIUM SERUM 150 mmol/L (136-145); UREA NITROGEN, BLOOD 26 mg/dL (7-18)
[2020-04-22 07:33] LABS: WHITE BLOOD COUNT (AUTO) 32.1 K/uL (4.8-10.8)
[2020-04-22 07:34] LABS: EOSINOPHILS % (MANUAL) 2 % (0-4); LYMPHOCYTES % (MANUAL) 10 % (20-46); MONOCYTES % (MANUAL) 7 % (5-12)
[2020-04-22 08:05] VITALS: BP 123/74
[2020-04-22] MEDS: ZINC SULF 220 MG CAP PO SCH (08:39)
[2020-04-22] MEDS: MAGNESIUM OXIDE 400 MG TAB PO SCH (08:39)
[2020-04-22] MEDS: VITAMIN D 400 IU TAB PO SCH (08:39)
[2020-04-22] MEDS: ASCORBIC ACID 500 MG TAB PO SCH (08:39)
[2020-04-22] MEDS: levETIRAcetam 500 MG TAB PO SCH ×2 (08:40→20:29)
[2020-04-22] MEDS: MEGESTROL 400 MG/10 ML UDC PO SCH ×3 (08:40→20:30)
[2020-04-22] MEDS: ENOXAPARIN 30 MG/0.3 ML SYR SUBQ SCH (08:40)
[2020-04-22] MEDS: DEXT 5% / NACL 0.45% 1,000 ML IV SCH ×3 (09:10→22:50)
[2020-04-22] MEDS: THERAHONEY GEL 42.5 GM TP SCH (13:35)
[2020-04-22 16:00] VITALS: BP 112/60
[2020-04-22] MEDS ORDERED: VANCOMYCIN PER PHARMACY MC PRN (22:45)
[2020-04-23] MEDS: HYDRAGUARD CREAM TP SCH ×2 (00:30→13:29)
[2020-04-23] MEDS ORDERED: VANCOMYCIN HCL 750 MG in NACL 0.9% 250 ML IV SCH (03:05)
[2020-04-23] MEDS: MEROPENEM 1,000 MG in NACL 0.9% 100 ML IV SCH ×3 (05:37→21:58)
[2020-04-23 07:20] LABS: HEMATOCRIT 26.2 % (36-48); HEMOGLOBIN 8.1 g/dL (12.0-16.0); MEAN CORPUSCULAR HEMOGLOBIN 27 pg (27-31); MEAN CORPUSCULAR HGB CONC 31 g/dL (33-37); MEAN CORPUSCULAR VOLUME 87.4 fL (80-94); PLATELET COUNT (AUTO) 203 K/uL (140-450); RED CELL DISTRIBUTION WIDTH 19.1 % (11.6-13.7)
[2020-04-23 07:27] LABS: ANION GAP 14.3 (8-16); CARBON DIOXIDE 23.2 mmol/L (21-32); CHLORIDE 110 mmol/L (98-107); CREATININE 0.8 mg/dL (0.6-1.3); GLUCOSE 126 mg/dL (74-106); SODIUM SERUM 145 mmol/L (136-145); UREA NITROGEN, BLOOD 23 mg/dL (7-18)
[2020-04-23 07:37] LABS: POTASSIUM 2.5 mmol/L (3.5-5.1)
[2020-04-23 08:00] VITALS: BP 122/66
[2020-04-23] MEDS ORDERED: NACL 0.9% IV ONE (08:00)
[2020-04-23] MEDS ORDERED: LIDOCAINE MPF IV ONE (08:00)
[2020-04-23] MEDS ORDERED: POTASSIUM CHLORIDE IV ONE (08:00)
[2020-04-23 08:53] LABS: EOSINOPHILS % (MANUAL) 4 % (0-4); LYMPHOCYTES % (MANUAL) 6 % (20-46); MONOCYTES % (MANUAL) 5 % (5-12); WHITE BLOOD COUNT (AUTO) 30.6 K/uL (4.8-10.8)
[2020-04-23] MEDS: MEGESTROL 400 MG/10 ML UDC PO SCH ×2 (09:00→21:00)
[2020-04-23] MEDS ORDERED: POTASSIUM CHLORIDE 10 MEQ TABER PO SCH (09:00)
[2020-04-23] MEDS ORDERED: LIDOCAINE MPF IV SCH (09:00)
[2020-04-23] MEDS ORDERED: NACL 0.9% IV SCH (09:00)
[2020-04-23] MEDS: ENOXAPARIN 30 MG/0.3 ML SYR SUBQ SCH (09:00)
[2020-04-23] MEDS ORDERED: POTASSIUM CHLORIDE IV SCH (09:00)
[2020-04-23] MEDS: VITAMIN D 400 IU TAB PO SCH (10:08)
[2020-04-23] MEDS: ASCORBIC ACID 500 MG TAB PO SCH (10:08)
[2020-04-23] MEDS: ZINC SULF 220 MG CAP PO SCH (10:09)
[2020-04-23] MEDS: MAGNESIUM OXIDE 400 MG TAB PO SCH (10:11)
[2020-04-23] MEDS: levETIRAcetam 500 MG TAB PO SCH ×2 (10:12→21:57)
[2020-04-23] MEDS: ACETAMINOPHEN 325 MG TAB PO PRN ×2 (11:30→22:04)
[2020-04-23] MEDS: THERAHONEY GEL 42.5 GM TP SCH (13:29)
[2020-04-23] MEDS: POTASSIUM CHLORIDE 10 MEQ TABER PO SCH ×2 (13:32→17:40)
[2020-04-23] MEDS: DEXT 5% / NACL 0.45% 1,000 ML IV SCH (15:28)
[2020-04-23 16:00] VITALS: BP 108/65
[2020-04-24] MEDS: HYDRAGUARD CREAM TP SCH ×2 (00:19→12:32)
[2020-04-24 00:54] VITALS: BP 130/78
[2020-04-24] MEDS: DEXT 5% / NACL 0.45% 1,000 ML IV SCH ×2 (00:54→11:10)
[2020-04-24] MEDS: MEROPENEM 1,000 MG in NACL 0.9% 100 ML IV SCH ×3 (05:46→20:53)
[2020-04-24 05:56] LABS: HEMATOCRIT 30.3 % (36-48); HEMOGLOBIN 9.3 g/dL (12.0-16.0); MEAN CORPUSCULAR HEMOGLOBIN 27 pg (27-31); MEAN CORPUSCULAR HGB CONC 31 g/dL (33-37); MEAN CORPUSCULAR VOLUME 88.6 fL (80-94); PLATELET COUNT (AUTO) 209 K/uL (140-450); RED BLOOD CELL COUNT(AUTO) 3.43 MIL/uL (4.20-5.40); RED CELL DISTRIBUTION WIDTH 19.2 % (11.6-13.7)
[2020-04-24 06:38] LABS: ANION GAP 14.2 (8-16); CARBON DIOXIDE 24.9 mmol/L (21-32); CHLORIDE 109 mmol/L (98-107); CREATININE 0.8 mg/dL (0.6-1.3); GLUCOSE 114 mg/dL (74-106); POTASSIUM 4.1 mmol/L (3.5-5.1); SODIUM SERUM 144 mmol/L (136-145); UREA NITROGEN, BLOOD 25 mg/dL (7-18)
[2020-04-24 08:31] LABS: EOSINOPHILS % (MANUAL) 1 % (0-4); LYMPHOCYTES % (MANUAL) 5 % (20-46); MONOCYTES % (MANUAL) 3 % (5-12); WHITE BLOOD COUNT (AUTO) 30.3 K/uL (4.8-10.8)
[2020-04-24] MEDS: ASCORBIC ACID 500 MG TAB PO SCH (09:00)
[2020-04-24] MEDS: MAGNESIUM OXIDE 400 MG TAB PO SCH (09:00)
[2020-04-24] MEDS: MEGESTROL 400 MG/10 ML UDC PO SCH (09:00)
[2020-04-24] MEDS: VITAMIN D 400 IU TAB PO SCH (09:00)
[2020-04-24] MEDS: ENOXAPARIN 30 MG/0.3 ML SYR SUBQ SCH (09:00)
[2020-04-24] MEDS: levETIRAcetam 500 MG TAB PO SCH (09:00)
[2020-04-24] MEDS: ZINC SULF 220 MG CAP PO SCH (09:00)
[2020-04-24] MEDS ORDERED: VANCOMYCIN 500 MG in DEXTROSE 5% 100 ML IV SCH (10:00)
[2020-04-24] MEDS: SCOPOLAMINE 1.5 MG/72 HR PATCH TD SCH (12:23)
[2020-04-24] MEDS: THERAHONEY GEL 42.5 GM TP SCH (12:32)
[2020-04-24] MEDS ORDERED: FLUCONAZOLE 200 MG/NS PREMIX 100 ML IV SCH (17:00)
[2020-04-24] MEDS ORDERED: MAG400 PO (19:32)
[2020-04-24] MEDS ORDERED: KEP500 PO (19:32)
[2020-04-24] MEDS ORDERED: VANC500P28 IV (19:32)
[2020-04-24] MEDS ORDERED: MERO1PIG IV (19:32)
[2020-04-24] MEDS ORDERED: FLUC200P6 IV (19:32)
[2020-04-24] MEDS ORDERED: MEGE40SU4 PO (19:32)
[2020-04-24] MEDS ORDERED: SCOP1PAT TD (19:32)
[2020-04-24 20:22] VITALS: BP 124/79
== END 2020-04-24 21:15 | disposition short-term general hospital (02) | DRG 871 ==
LOC: MED 16:39 → MTU 19:12
PROVIDERS: ADMIT Internal Medicine; ATTEND Internal Medicine
DX: A41.9 Sepsis, unspecified organism (principal); J18.9 Pneumonia, unspecified organism; L89.94 Pressure ulcer of unspecified site, stage 4; E43 Unspecified severe protein-calorie malnutrition; Z68.1 Body mass index [BMI] 19.9 or less, adult; C25.9 Malignant neoplasm of pancreas, unspecified; C78.00 Secondary malignant neoplasm of unspecified lung; C78.7 Secondary malignant neoplasm of liver and intrahepatic bile duct; R64 Cachexia; C78.89 Secondary malignant neoplasm of other digestive organs; N39.0 Urinary tract infection, site not specified; Z20.828 Contact with and (suspected) exposure to other viral communicable diseases; E83.42 Hypomagnesemia; F32.9 Major depressive disorder, single episode, unspecified; F41.9 Anxiety disorder, unspecified; G40.909 Epilepsy, unspecified, not intractable, without status epilepticus; G89.29 Other chronic pain; K21.9 Gastro-esophageal reflux disease without esophagitis; E11.9 Type 2 diabetes mellitus without complications; I10 Essential (primary) hypertension; Z91.5 Personal history of self-harm; Z90.710 Acquired absence of both cervix and uterus; Z88.5 Allergy status to narcotic agent; Z88.0 Allergy status to penicillin; Z79.899 Other long term (current) drug therapy
CPT/HCPCS: 36415; 71045; 80048; 80053; 81001; 82150; 83605; 83690; 83735; 85025; 86140; 87040; 87070; 87075; 87081; 96361; 96365; 96367; 96375; 97110; 97116; 97161-GP; 97530; 99285; C1758; J0456; J0696; J1170; J1650; J1953; J2001; J2185; J2270; J2405; J3370; J3475; J3480; J3490; J7030; J7060; Q0092